=== PATIENT | female | born 1970 | race Caucasian/White ===

== ENCOUNTER → 2016-10-15 | Outpatient (CLI) | payer OTHER ==
[~2016-10-15] MED LIST: OXYC-57 PO; OXYC10TA31 PO; TRAM-10 PO; ultracet
== END | disposition home or self-care (01) ==
LOC: C.PAPS 08:18
PROVIDERS: ATTEND Obstetrics & Gynecology
DX: Z12.4 Encounter for screening for malignant neoplasm of cervix (principal); Z87.42 Personal history of other diseases of the female genital tract

== ENCOUNTER → 2017-08-31 | Outpatient (CLI) | payer OTHER ==
--- NOTE | 2017-09-01 14:39 | MAMMOGRAPHY REPORT ---
BILATERAL DIGITAL SCREENING MAMMOGRAM TOMOSYNTHESIS WITH CAD: 08/31/2017 CLINICAL HISTORY: Routine screening. TECHNIQUE: Breast tomosynthesis in addition to standard 2D mammography was performed. Current study was also evaluated with a Computer Aided Detection (CAD) system. COMPARISON: Comparison is made to exams dated: 08/07/2016 mammogram, 08/02/2015 mammogram, 4 mammogram, 01/26/2012 mammogram, and 01/22/2011 mammogram - [facility]. BREAST COMPOSITION: The tissue of both breasts is heterogeneously dense, which may obscure small mas ses. FINDINGS: The glandular pattern is similar to prior mammograms. There are stable benign-appearing mi crocalcifications in the left breast. No suspicious mass, architectural distortion or cluster of new , suspicious microcalcifications is seen. IMPRESSION: ACR BI-RADS CATEGORY 1: NEGATIVE There is no mammographic evidence of malignancy. A 1 year screening mammogram is recommended. The pa tient will receive written notification of the results. Approximately 10% of breast cancers are not detected with mammography. A negative mammographic report should not delay biopsy if a clinically suggestive mass is present. Sade Alves M.D. ay/:08/31/2017 16:20:28 [employer] Operator: Tee VALDEZ(R)(M), [facility] letter sent: Normal 1/2 BI-RADS Code: ACR BI-RADS Category 1: Negative
== END | disposition home or self-care (01) ==
LOC: C.MAMM 10:04
PROVIDERS: ATTEND Obstetrics & Gynecology
DX: Z12.31 Encounter for screening mammogram for malignant neoplasm of breast (principal)

== ENCOUNTER → 2017-10-05 | Outpatient (CLI) | payer OTHER ==
--- NOTE | 2017-10-05 15:39 | DIAGNOSTIC IMAGING REPORT ---
L SHOULDER MIN 2 VIEWS ROUTINE CLINICAL HISTORY: Left shoulder pain status post trauma COMPARISON: None. DISCUSSION: No fractures or dislocations the proximal humerus are visualized. There are multiple old left-sided rib fractures. There is a deformity the scapular glenoid which is likely old. IMPRESSION: 1. Old left-sided rib fractures 2. Scapular glenoid deformity likely old 3. No acute fractures or dislocations of the proximal humerus Electronically signed by: Bill Grayson M.D. 10/05/2017 3:37 PM Dictated Date/Time: 10/05/2017 3:34 PM
--- NOTE | 2017-10-05 15:42 | DIAGNOSTIC IMAGING REPORT ---
ANKLE MIN 3 VIEWS ROUTINE CLINICAL HISTORY: Left ankle pain COMPARISON: None. DISCUSSION: No acute fractures or dislocations are visualized. There is distal tibial spurring. There is a plantar calcaneal spur. There are corticated bony densities adjacent medial malleolus which are felt to be old. IMPRESSION: Chronic changes. No acute fractures. Electronically signed by: Bill Grayson M.D. 10/05/2017 3:41 PM Dictated Date/Time: 10/05/2017 3:40 PM
== END | disposition home or self-care (01) ==
LOC: C.RAD 14:36
PROVIDERS: ATTEND Family Medicine
DX: M25.512 Pain in left shoulder (principal); M79.9 Soft tissue disorder, unspecified; M25.572 Pain in left ankle and joints of left foot

== ENCOUNTER 2020-11-23 06:03 | Inpatient (IN) ==
[2020-11-23] MEDS ORDERED: KETOROLAC TROMETHAMINE 15 MG/ML VIAL IV STA (06:46)
[2020-11-23] MEDS ORDERED: diphenhydrAMINE 50 MG/ML VIAL IV STA (06:46)
[2020-11-23] MEDS ORDERED: SODIUM CHLORIDE 0.9% 1000ML 2,000 ML IV ONE (06:46)
[2020-11-23] MEDS ORDERED: PROCHLORPERAZINE 2 ML IV ONE (06:46)
[2020-11-23] MEDS ORDERED: ACETAMINOPHEN 1,000 MG/100 ML VIAL IV STA (06:46)
[2020-11-23] MEDS ORDERED: dexAMETHasone**PF** 10 MG/ML VIAL IV ONE (06:46)
[2020-11-23] MEDS ORDERED: SODIUM CHLORIDE 0.65% NA SOLN 45 ML (OCEAN) ONE (06:49)
[2020-11-23] MEDS ORDERED: guaiFENesin 600 MG TABCR PO STA (06:49)
--- NOTE | 2020-11-23 07:26 | Emergency Department Note ---
Impression & Plan Intractable nausea and vomiting, Sinus headache, Vertigo, Hypomagnesemia, Hypokalemia ED Provider Note NAME: RAJIV REYES AGE: 50 SEX: F ARRIVES VIA: Walk-In INFORMANT: Patient, ED PROVIDER(S): Nabil Hernandez MD CHIEF COMPLAINT: Headache, dizziness PLAN: Disposition: Admit MEDICAL DECISION MAKING: The patient is a pleasant 50-year-old woman with a past medical history of chronic frontoethmoidal and maxillary sinusitis who presents to the emergency department with progressive worsening of sinus pressure, congestion with develo pment of vertigo and frequent nausea and vomiting over the past several days. She was prescribed antibiotic and steroid by her doctor but was unable to pick it up. She was last on antibiotics approximately a month ago but does not recall which one is she is been on numerous antibiotics over the past 6 months. She denies diarrhea, chest pain, shortness of breath. On arrival the patient is uncomfortable but no acute distress, afebrile with heart rate in the 120s and vital signs otherwise stable. On exam the patient appears clinically dry. Neck is supple. She has bilateral middle ear effusions per exam without injection of TMs. Boggy nasal turbinates. Mild tenderness to frontal and maxillary sinuses bilaterally. She has no focal neurologic deficits. She does exhibit mild bilateral horizontal nystagmus that extinguishes. Otherwise there is no disconjugate gaze and eomi. pupils are equal and reactive to light bilaterally. WBC 12K, nonspecific. H/H and platelets wnl. Chemistry without acidosis. Potassium 2.5 and Magnesium 1.1 with repletion provided. Electrolytes unremarkable. LFTs without significant abnormality. Troponin negative/undetectable. Lipase is not elevated. Covid-19 PCR negative. Influenza and RSV negative. Upon re-evaluation the patient only reported marginal improved after IVF hydration, apap, dexamethasone, compazine, and diphenhydramine. Thus CT imaging performed and CT head and CTA head and neck was negative for acute process. Patient somewhat more improved after ativan, reglan, and pepcid however still uncomfortable. Given still symptomatic with electrolyte abnormalities, patient is agreeable with plan for admission. Given patient is afebrile with clear paranasal sinus on imaging will defer decision for ABX to admitting team. Case was discussed with Diana Ngo, with Dr. Francisco Javier Ortiz hospitalist who will evaluate the patient for admission. Triage Nursing notes reviewed and agree them. Additional history obtained from [facility] records. Prior medical records reviewed Vital Signs: reviewed and remarkable for tachycardia. Differential diagnosis: Migraine headache, meningitis, sinusitis, CO exposure, ICH, SAH, infection, tumor, headache, sinus thrombosis, arterial dissection, as well as other pathologies. ER treatment provided: See below. Diagnostics interpreted by me: ECG: Sinus tachycardia, 106 bpm, no ectopy, no overt ST elevation or depression, QTC 454, QRS 60. Cardiac Monitoring: An order for continuous cardiac monitoring was placed and demonstrated sinus tachycardia, 106 bpm, no ectopy Laboratory studies: See below Imaging studies: See below Consultation(s): Case was discussed with Diana Ngo PAC, with Dr. Francisco Javier Ortiz hospitalist who will evaluate the patient for admission. HPI: The patient is a pleasant 50-year-old woman with a past medical history of chronic frontoethmoidal and maxillary sinusitis who presents to the emergency department with progressive worsening of sinus pressure, congestion with development of vertigo and frequent nausea and vomiting over the past several days. She was prescribed antibiotic and steroid by her doctor but was unable to pick it up. She was last on antibiotics approximately a month ago but does not recall which one is she is been on numerous antibiotics over the past 6 months. She denies diarrhea, chest pain, shortness of breath. ROS: See above HPI for pertinent positives & negatives. A total of 10 systems reviewed and were otherwise negative. PAST MEDICAL HISTORY:See Below PAST SURGICAL HISTORY:See Below FAMILY HISTORY:See Below SOCIAL HISTORY:See Below HOME MEDICATIONS:See Below ALLERGIES:See Below VITALS:See Below PHYSICAL EXAMINATION: GENERAL: Awake, alert, uncomfortable, fatigued-appearing, in no distress HENT: Normocephalic, atraumatic. Bilateral middle ear effusions per exam without injection of TMs. Boggy nasal turbinates. Mild tenderness to frontal and maxillary sinuses bilaterally. Oropharynx with dry mucous membranes and otherwise unremarkable. EYES: Normal conjunctiva. Sclera non-icteric. Mild bilateral horizontal nystagmus that extinguishes. No disconjugate gaze. Eomi. Pupils are equal and reactive to light bilaterally. NECK: Supple. No nuchal rigidity. FROM. No JVD. RESPIRATORY: Clear to auscultation. CARDIAC: Regular rate, normal rhythm. Extremities warm and well perfused. Pulses equal. ABDOMEN: Soft, non-distended. No tenderness to palpation. No rebound or guarding. No masses. RECTAL: Deferred. MUSCULOSKELETAL: Chest examination reveals no tenderness. The back is symme trical on inspection without obvious abnormality. There is no CVA tenderness to palpation. No joint edema. LOWER EXTREMITIES: Calves are equal size bilaterally and non-tender. No edema. No discoloration. NEURO: Normal sensorium. No sensory or motor deficits noted. 5/5 strength and SILT x 4 extremities. Cerebellar function intact including [id number], alternating palms, [id number]. DTRs wnl. No clonus. SKIN: No rash or jaundice noted. ED COURSE: Critical Care: I have personally spent greater than 35 minutes of critical care time in the direct management of this patient. This includes bedside care, interpretation of diagnostic studies, and testing, discussion with consultants, patient, and family members, and other required patient management activities. This 35 minutes is in excess of all separately billable procedures. Nabil Hernandez MD Past Med/Surg History Medical History No pertinent past medical history Surgical History History of colonoscopy History of laparoscopic cholecystectomy History of sinus surgery History of tonsillectomy Family History Brother Ulcerative colitis Unknown Alcoholism Irritable bowel syndrome Grandmother Breast cancer maternal Denies family history of Ovarian cancer Crohn's disease Colorectal cancer Uterine cancer Social History Smoking Status: Never smoker Tobacco Type: Cigarettes Second Hand Exposure: No; Hx Alcohol Use: No Hx Substance Use: No Preferred Language: Norwegian Communication Ability: Effective Burrer Operator Required: No Beliefs That Will Affect Care: None and Jainism Current Living Situation: Significant Other Other Information That Helps Us Care for You: No Feels Safe at Home: Yes Safety Concerns: Feels Safe At This Time Assistive Devices: None Allergies Allergies Allergy/AdvReac Type Severity Reaction Status Date / Time No Known Allergies Allergy Unverified 03/15/20 13:45 Home Meds Home Medications Medication Instructions Recorded Confirmed acetaminophen [Tylenol Extra 1,000 mg PO Q6H PRN 11/23/20 11/23/20 Strength] etonogestrel [Nexplanon] 68 mg SUBDERMAL CONTINOUS 11/23/20 11/23/20 guaifenesin [Mucinex] 600 mg PO BID 11/23/20 11/23/20 ondansetron HCl [Zofran] 4 mg PO Q6H 11/23/20 11/23/20 pseudoephedrine HCl [Sudafed] 60 mg PO Q6H PRN 11/23/20 11/23/20 Results & Data (ED) Vital Signs Vital Signs - 24 hr 11/23/20 06:07 11/23/20 06:47 11/23/20 08:03 Temperature 36.3 C L Temperature Source Temporal Artery Scan Pulse Rate 122 H Pulse Rate [Apical] 104 H Pulse Rhythm [Apical] Pulse Strength [Apical] Respiratory Rate 20 18 Respiratory Effort / Characteristics Respiratory Depth Respiratory Pattern Blood Pressure 159/81 H Blood Pressure [Left Arm] 159/82 H Blood Pressure Mean 107 Blood Pressure Mean [Left Arm] 107 Blood Pressure Position [Left Arm] Pulse Oximetry 99 99 97 Oxygen Delivery Method Room Air Room Air Sepsis Recent Fever Within 48 Hours Yes Sepsis New/Unexplained Change in Mental Status No Sepsis Action Taken by Nursing No Action Required 11/23/20 10:00 11/23/20 11:14 Temperature Temperature Source Pulse Rate Pulse Rate [Apical] 97 H 103 H Pulse Rhythm [Apical] Regular Pulse Strength [Apical] Normal Respiratory Rate 18 20 Respiratory Effort / Characteristics Non-Labored Spontaneous Respiratory Depth Normal Respiratory Pattern Regular Blood Pressure Blood Pressure [Left Arm] 160/86 H 153/92 H Blood Pressure Mean Blood Pressure Mean [Left Arm] 110 112 Blood Pressure Position [Left Arm] Lying Pulse Oximetry 97 Oxygen Delivery Method Room Air Sepsis Recent Fever Within 48 Hours Sepsis New/Unexplained Change in Mental Status Sepsis Action Taken by Nursing Laboratory Data Attestation: I reviewed the patient's lab results. Result diagrams: 11/23/20 07:20 11/23/20 20:07 Lab Results 11/23/20 11/23/20 11/23/20 Range/Units 06:48 06:48 07:20 WBC 12.19 H (4.8-10.8) K/uL RBC 4.82 (4.2-5.4) M/uL Hgb 13.6 (12.0-16.0) g/dL POC Hgb (12.0-16.0) g/dl Hct 39.5 (37-47) % POC Hct (37-47) % MCV 82.0 (80-100) fL MCH 28.2 (25-34) pg MCHC 34.4 (32-36) g/dL RDW Std Deviation 42.1 (36.4-46.3) fL RDW Coeff of [place] 14.1 (11.5-14.5) % Plt Count 313 (130-400) K/uL MPV 9.7 (7.4-10.4) fL Immature Gran % (Auto) 0.2 % Neut % (Auto) 82.4 % Lymph % (Auto) 10.8 % [place] % (Auto) 6.3 % Eos % (Auto) 0.1 % Baso % (Auto) 0.2 % Neut # (Auto) 10.05 H (1.4-6.5) K/uL Lymph # (Auto) 1.32 (1.2-3.4) K/uL [place] # (Auto) 0.77 H (0.11-0.59) K/uL Eos # (Auto) 0.01 (0-0.5) K/uL Baso # (Auto) 0.02 (0-0.2) K/uL Immature Gran # (Auto) 0.02 (0.00-0.02) K/uL POC Sodium (135-144) mmol/L Sodium (136-145) mmol/L POC Potassium (3.3-5.0) mmol/L Potassium (3.5-5.1) mmol/L POC Chloride (101-112) mmol/L Chloride (98-107) mmol/L Carbon Dioxide (21-32) mmol/L POC Total CO2 (24-31) mmol/L Anion Gap (3-11) POC Anion Gap (16-25) mmol/L POC BUN (7-18) mg/dl BUN (7-18) mg/dl Creatinine (0.6-1.2) mg/dl POC Creatinine (0.6-1.3) mg/dl Est Cr Clr Drug Dosing ml/min Est GFR ( Amer) Est GFR (Non-Af Amer) BUN/Creatinine Ratio (10-20) Glucose (70-99) mg/dl POC Glucose (other) (70-99) mg/dl Calcium (8.5-10.1) mg/dl POC Ioniz Calcium [place] (1.12-1.32) mmol/l Phosphorus (2.5-4.9) mg/dl Magnesium (1.8-2.4) mg/dl Total Bilirubin (0.2-1) mg/dl Direct Bilirubin (0-0.2) mg/dl AST (15-37) U/L ALT (12-78) U/L Alkaline Phosphatase (45-117) U/L Total Creatine Kinase (26-192) U/L Troponin I (0-0.045) ng/ml Total Protein (6.4-8.2) gm/dl Albumin (3.4-5.0) gm/dl Globulin (2.5-4.0) gm/dl Albumin/Globulin Ratio (0.9-2) Lipase (73-393) U/L HCG, Qual COVID-19 Eval Order CovFluRsv at [facility] SARS-CoV-2 (PCR) NEGATIVE (Negative) Influenza Type A (PCR) Negative (Neg) Influenza Type B (PCR) Negative (Neg) RSV (RT-PCR) Negative (Neg) 11/23/20 11/23/20 11/23/20 Range/Units 07:20 07:20 07:25 WBC (4.8-10.8) K/uL RBC (4.2-5.4) M/uL Hgb (12.0-16.0) g/dL POC Hgb 14.6 (12.0-16.0) g/dl Hct (37-47) % POC Hct 43 (37-47) % MCV (80-100) fL MCH (25-34) pg MCHC (32-36) g/dL RDW Std Deviation (36.4-46.3) fL RDW Coeff of [place] (11.5-14.5) % Plt Count (130-400) K/uL MPV (7.4-10.4) fL Immature Gran % (Auto) % Neut % (Auto) % Lymph % (Auto) % [place] % (Auto) % Eos % (Auto) % Baso % (Auto) % Neut # (Auto) (1.4-6.5) K/uL Lymph # (Auto) (1.2-3.4) K/uL [place] # (Auto) (0.11-0.59) K/uL Eos # (Auto) (0-0.5) K/uL Baso # (Auto) (0-0.2) K/uL Immature Gran # (Auto) (0.00-0.02) K/uL POC Sodium 132 L (135-144) mmol/L Sodium 132 L (136-145) mmol/L POC Potassium 2.4 L* (3.3-5.0) mmol/L Potassium 2.5 L* (3.5-5.1) mmol/L POC Chloride 88 L (101-112) mmol/L Chloride 91 L (98-107) mmol/L Carbon Dioxide 29 (21-32) mmol/L POC Total CO2 33 H (24-31) mmol/L Anion Gap 13.0 H (3-11) POC Anion Gap 15.0 L (16-25) mmol/L POC BUN 8 (7-18) mg/dl BUN 9 (7-18) mg/dl Creatinine 0.87 (0.6-1.2) mg/dl POC Creatinine 0.7 (0.6-1.3) mg/dl Est Cr Clr Drug Dosing 104.6 ml/min Est GFR ( Amer) 90.7 Est GFR (Non-Af Amer) 78.2 BUN/Creatinine Ratio 10.5 (10-20) Glucose 121 H (70-99) mg/dl POC Glucose (other) 131 H (70-99) mg/dl Calcium 7.9 L (8.5-10.1) mg/dl POC Ioniz Calcium [place] 0.85 L (1.12-1.32) mmol/l Phosphorus 2.1 L (2.5-4.9) mg/dl Magnesium 1.1 L (1.8-2.4) mg/dl Total Bilirubin 0.9 (0.2-1) mg/dl Direct Bilirubin < 0.1 (0-0.2) mg/dl AST 38 H (15-37) U/L ALT 29 (12-78) U/L Alkaline Phosphatase 82 (45-117) U/L Total Creatine Kinase 289 H (26-192) U/L Troponin I < 0.015 (0-0.045) ng/ml Total Protein 7.9 (6.4-8.2) gm/dl Albumin 3.5 (3.4-5.0) gm/dl Globulin 4.4 H (2.5-4.0) gm/dl Albumin/Globulin Ratio 0.8 L (0.9-2) Lipase 132 (73-393) U/L HCG, Qual Cancelled COVID-19 Eval Order SARS-CoV-2 (PCR) (Negative) Influenza Type A (PCR) (Neg) Influenza Type B (PCR) (Neg) RSV (RT-PCR) (Neg) 11/23/20 Range/Units 07:57 WBC (4.8-10.8) K/uL RBC (4.2-5.4) M/uL Hgb (12.0-16.0) g/dL POC Hgb (12.0-16.0) g/dl Hct (37-47) % POC Hct (37-47) % MCV (80-100) fL MCH (25-34) pg MCHC (32-36) g/dL RDW Std Deviation (36.4-46.3) fL RDW Coeff of [place] (11.5-14.5) % Plt Count (130-400) K/uL MPV (7.4-10.4) fL Immature Gran % (Auto) % Neut % (Auto) % Lymph % (Auto) % [place] % (Auto) % Eos % (Auto) % Baso % (Auto) % Neut # (Auto) (1.4-6.5) K/uL Lymph # (Auto) (1.2-3.4) K/uL [place] # (Auto) (0.11-0.59) K/uL Eos # (Auto) (0-0.5) K/uL Baso # (Auto) (0-0.2) K/uL Immature Gran # (Auto) (0.00-0.02) K/uL POC Sodium (135-144) mmol/L Sodium (136-145) mmol/L POC Potassium (3.3-5.0) mmol/L Potassium (3.5-5.1) mmol/L POC Chloride (101-112) mmol/L Chloride (98-107) mmol/L Carbon Dioxide (21-32) mmol/L POC Total CO2 (24-31) mmol/L Anion Gap (3-11) POC Anion Gap (16-25) mmol/L POC BUN (7-18) mg/dl BUN (7-18) mg/dl Creatinine (0.6-1.2) mg/dl POC Creatinine (0.6-1.3) mg/dl Est Cr Clr Drug Dosing ml/min Est GFR ( Amer) Est GFR (Non-Af Amer) BUN/Creatinine Ratio (10-20) Glucose (70-99) mg/dl POC Glucose (other) (70-99) mg/dl Calcium (8.5-10.1) mg/dl POC Ioniz Calcium Pierce (1.12-1.32) mmol/l Phosphorus (2.5-4.9) mg/dl Magnesium (1.8-2.4) mg/dl Total Bilirubin (0.2-1) mg/dl Direct Bilirubin (0-0.2) mg/dl AST (15-37) U/L ALT (12-78) U/L Alkaline Phosphatase (45-117) U/L Total Creatine Kinase (26-192) U/L Troponin I (0-0.045) ng/ml Total Protein (6.4-8.2) gm/dl Albumin (3.4-5.0) gm/dl Globulin (2.5-4.0) gm/dl Albumin/Globulin Ratio (0.9-2) Lipase (73-393) U/L HCG, Qual Negative COVID-19 Eval Order SARS-CoV-2 (PCR) (Negative) Influenza Type A (PCR) (Neg) Influenza Type B (PCR) (Neg) RSV (RT-PCR) (Neg) Administered Medications Acetaminophen (Acetaminophen 500 Mg Tab) 1,000 mg PO Q6H PRN PRN Reason: Pain Stop: 12/23/20 13:35 Last Admin: 11/23/20 20:26 Dose: 1,000 mg Documented by: [id number] Al Hydrox/Mg Hydrox/Simethicone (Aluminum/Magnesium Susp 30 Ml Udc) 15 ml PO Q4H PRN PRN Reason: Dyspepsia Stop: 12/23/20 11:57 Last Admin: 11/23/20 17:02 Dose: 15 ml Documented by: [id number] Amoxicillin/Clavulanate Potassium (Amoxicillin/Clavulanate 875 Mg Tab) 1 tab PO BIDM DENNISE Stop: 12/03/20 16:59 Last Admin: 11/23/20 17:03 Dose: 1 tab Documented by: [id number] Diphenhydramine HCl (Diphenhydramine 50 Mg/Ml Vial) 12.5 mg IV Q6H PRN PRN Reason: itchy Stop: 12/23/20 16:59 Last Admin: 11/23/20 17:03 Dose: 12.5 mg Documented by: [id number] Guaifenesin (Guaifenesin 600 Mg Tabcr) 600 mg PO BID DENNISE Stop: 12/23/20 20:59 Last Admin: 11/23/20 20:26 Dose: 600 mg Documented by: [id number] Ketorolac Tromethamine (Ketorolac Tromethamine 15 Mg/Ml Vial) 15 mg IV Q6H PRN PRN Reason: Pain Stop: 11/28/20 15:01 Last Admin: 11/23/20 21:49 Dose: 15 mg Documented by: [id number] Admin: 11/23/20 15:40 Dose: 15 mg Documented by: [id number] Ondansetron HCl (Ondansetron Inj 2 Mg/Ml 2 Ml Vial) 4 mg IV Q6H PRN PRN Reason: Nausea Stop: 12/23/20 11:57 Last Admin: 11/23/20 19:43 Dose: 4 mg Documented by: [id number] Discontinued Medications Acetaminophen (Acetaminophen 325 Mg Tab) Confirm Administered Dose 650 mg .ROUTE .STK-MED ONE Stop: 11/23/20 13:15 Last Admin: 11/23/20 13:18 Dose: 650 mg Documented by: [id number] Dexamethasone Sodium Phosphate (DexamethasonePf 10 Mg/Ml Vial) 10 mg IV NOW ONE Stop: 11/23/20 06:47 Last Admin: 11/23/20 07:37 Dose: 10 mg Documented by: [id number] Diphenhydramine HCl (Diphenhydramine 50 Mg/Ml Vial) 25 mg IV NOW STA Stop: 11/23/20 06:47 Last Admin: 11/23/20 07:37 Dose: 25 mg Documented by: [id number] Guaifenesin (Guaifenesin 600 Mg Tabcr) 600 mg PO NOW STA Stop: 11/23/20 06:50 Last Admin: 11/23/20 07:32 Dose: Not Given Documented by: [id number] Sodium Chloride (Nss 1000ml) 2,000 mls @ 999 mls/hr IV .Q2H1M ONE Stop: 11/23/20 08:46 Last Infusion: 11/23/20 09:40 Dose: 0 mls/hr Documented by: [id number] Admin: 11/23/20 07:37 Dose: 999 mls/hr Documented by: [id number] Acetaminophen (Ofirmev) 1,000 mg in 100 mls @ 400 mls/hr IV NOW STA Stop: 11/23/20 07:00 Last Infusion: 11/23/20 08:02 Dose: 0 mls/hr Documented by: [id number] Admin: 11/23/20 07:37 Dose: 400 mls/hr Documented by: [id number] Prochlorperazine (Compazine) 2 mls @ 1 mls/min IV ONE ONE Stop: 11/23/20 06:47 Last Admin: 11/23/20 07:37 Dose: 1 mls/min Documented by: [id number] Magnesium Sulfate/Dextrose (Magnesium Sulfate / D5w) 1 gm in 100 mls @ 100 mls/hr IV Q1H DENNISE Stop: 11/23/20 10:37 Last Infusion: 11/23/20 11:41 Dose: 0 mls/hr Documented by: [id number] Admin: 11/23/20 10:22 Dose: 100 mls/hr Documented by: [id number] Infusion: 11/23/20 09:47 Dose: 0 mls/hr Documented by: [id number] Admin: 11/23/20 08:46 Dose: 100 mls/hr Documented by: [id number] Potassium Chloride (K [place] / Wtr) 10 meq in 100 mls @ 100 mls/hr IV Q1H DENNISE Stop: 11/23/20 10:44 Last Infusion: 11/23/20 13:10 Dose: 0 mls/hr Documented by: [id number] Admin: 11/23/20 11:40 Dose: 100 mls/hr Documented by: [id number] Infusion: 11/23/20 09:47 Dose: 0 mls/hr Documented by: [id number] Admin: 11/23/20 08:46 Dose: 100 mls/hr Documented by: [id number] Lorazepam (Ativan) 0.5 mg in 1 mls @ 1 mls/min IV NOW STA Stop: 11/23/20 09:07 Last Admin: 11/23/20 09:33 Dose: 1 mls/min Documented by: [id number] Famotidine (Pepcid 20mg Iv Push) 20 mg in 5 mls @ 2.5 mls/min IV NOW STA Stop: 11/23/20 09:22 Last Admin: 11/23/20 09:32 Dose: 2.5 mls/min Documented by: [id number] Potassium Chloride/Sodium Chloride (Normal Saline W/20 Meq Kcl) 20 meq in 1,000 mls @ 100 mls/hr IV .Q10H DENNISE Stop: 11/23/20 23:44 Last Admin: 11/23/20 14:36 Dose: 100 mls/hr Documented by: [id number] Ioversol (Ioversol 350 500ml) 117 ml IV ONCE ONE Stop: 11/23/20 09:44 Last Admin: 11/23/20 09:43 Dose: 117 ml Documented by: [id number] Ioversol (Ioversol 350 500ml) 117 ml IV ONCE ONE Stop: 11/23/20 09:45 Last Admin: 11/23/20 09:44 Dose: 117 ml Documented by: [id number] Ketorolac Tromethamine (Ketorolac Tromethamine 15 Mg/Ml Vial) 15 mg IV NOW STA Stop: 11/23/20 06:47 Last Admin: 11/23/20 07:37 Dose: 15 mg Documented by: [id number] Metoclopramide HCl (Metoclopramide Hcl Inj 5 Mg/Ml 2 Ml Vial) 5 mg IV ONE ONE Stop: 11/23/20 09:07 Last Admin: 11/23/20 09:32 Dose: 5 mg Documented by: [id number] Sodium Chloride (Sodium Chloride 0.65% Na Soln 45 Ml ([place])) 2 sprays NA NOW ONE Stop: 11/23/20 06:50 Last Admin: 11/23/20 07:42 Dose: 2 sprays Documented by: [id number] Imaging Data Radiologist's Impression: Chest X-Ray 11/23/20 06:46 XR chest 1V portable HISTORY: 50 years-old Female Chest Pain . Acute atypical chest pain COMPARISON: Chest radiograph 02/01/2008 TECHNIQUE: Portable AP view of the chest FINDINGS: Cardiomediastinal and hilar silhouettes are within normal limits. No pneumothorax, pleural effusion, airspace consolidation or overt pulmonary edema. Degenerative changes of the shoulders and spine. Healed chronic left-sided rib fractures. IMPRESSION: No acute process. ACT 112: Negative or not required by law. The above report was generated using voice recognition software. It may contain grammatical, syntax or spelling errors. Electronically signed by: Vincent Morales M.D. 11/23/2020 8:[address] 11/23/20 09:[address] DOSE: HISTORY: chronic sinusitis/Headache, vertigo/n/v. TECHNIQUE: Multiaxial CT images of the head were performed without the use of intravenous contrast. Automated exposure control was utilized for this study. A dose lowering technique was utilized adhering to the principles of ALARA. Comparison: None. Findings: The paranasal sinuses and mastoid air cells are clear. The calvarium and skull base are intact. The ventricles and sulci are within normal limits. There is no mass, hematoma, midline shift, or acute infarct. A few small scalp nodules. These favor sebaceous cysts. Impression: No acute intracranial abnormality. ACT 112: Negative or not required by law. Electronically signed by: Leonid Trevino M.D. 11/23/2020 9:56 AM Head CTA 11/23/20 09:06 HEAD & NECK CTA HISTORY: chronic sinusitis/Headache, vertigo/n/v. TECHNIQUE: Multiaxial CT images of the head were performed following the intravenous administration of contrast to evaluate the major cerebral vessels. Multiaxial CT images of the neck were also performed following the intravenous administration of contrast to evaluate the major cervical vessels. Maximum intensity projection images were also obtained. A dose lowering technique was utilized adhering to the principles of ALARA. COMPARISON: None. FINDINGS: There is no mass, hematoma, midline shift, or acute infarct. Visualized intracranial internal carotid arteries, distal vertebral arteries, and basilar artery are widely patent. There is no significant stenosis, occlusion, or aneurysm seen within the bilateral ACAs, MCAs, or certified substance abuse counselor. The major dural venous sinuses are patent. The aortic arch and proximal great vessels are widely patent. There is no significant stenosis, occlusion, or dissection identified within the bilateral common carotid, internal carotid, or vertebral arteries. There are 2 subcentimeter right thyroid nodules measuring up to 7 mm. These do not meet CT criteria for follow-up. IMPRESSION: 1. No significant stenosis, occlusion, or aneurysm within the [place]. 2. No significant stenosis, occlusion, or dissection identified within the carotid or vertebral arteries. ACT 112: Negative or not required by law. Electronically signed by: Leonid Trevino M.D. 11/23/2020 10:11 AM Neck CTA 11/23/20 09:06 HEAD & NECK CTA HISTORY: chronic sinusitis/Headache, vertigo/n/v. TECHNIQUE: Multiaxial CT images of the head were performed following the intravenous administration of contrast to evaluate the major cerebral vessels. Multiaxial CT images of the neck were also performed following the intravenous administration of contrast to evaluate the major cervical vessels. Maximum intensity projection images were also obtained. A dose lowering technique was utilized adhering to the principles of ALARA. COMPARISON: None. FINDINGS: There is no mass, hematoma, midline shift, or acute infarct. Visualized intracranial internal carotid arteries, distal vertebral arteries, and basilar artery are widely patent. There is no significant stenosis, occlusion, or aneurysm seen within the bilateral ACAs, MCAs, or certified substance abuse counselor. The major dural venous sinuses are patent. The aortic arch and proximal great vessels are widely patent. There is no significant stenosis, occlusion, or dissection identified within the bilateral common carotid, internal carotid, or vertebral arteries. There are 2 s ubcentimeter right thyroid nodules measuring up to 7 mm. These do not meet CT criteria for follow-up. IMPRESSION: 1. No significant stenosis, occlusion, or aneurysm within the [place]. 2. No significant stenosis, occlusion, or dissection identified within the carotid or vertebral arteries. ACT 112: Negative or not required by law. Electronically signed by: Leonid Trevino M.D. 11/23/2020 10:11 AM Discharge Plan Visit Data Chief Complaint: Ear Pain/Problem Stated Complaint: ear infection,vomiting,dizzy ED Provider: Nabil Hernandez Discharge Problem: Intractable nausea and vomiting, Sinus headache, Vertigo, Hypomagnesemia, Hypokalemia Patient Disposition: Admitted As Inpatient Discharge Instructions Interventions: ED Discharge Assessment Last Done: 11/23/20 13:23
[2020-11-23 07:32] LABS: Basophils # (auto) 0.02 K/uL (0-0.2); Basophils % (auto) 0.2 %; Eosinophils # (auto) 0.01 K/uL (0-0.5); Eosinophils % (auto) 0.1 %; Hematocrit (blood only) 39.5 % (37-47); Hemoglobin 13.6 g/dL (12.0-16.0); Immature Granulocytes # (auto) 0.02 K/uL (0.00-0.02); Immature Granulocytes % (auto) 0.2 %; Lymphocytes # (auto) 1.32 K/uL (1.2-3.4); Lymphocytes % (auto) 10.8 %; Mean Corpuscular Hemoglobin 28.2 pg (25-34); Mean Corpuscular Hgb Conc 34.4 g/dL (32-36); Mean Platelet Volume 9.7 fL (7.4-10.4); Monocytes # (auto) 0.77 K/uL (0.11-0.59); Monocytes % (auto) 6.3 %; Neutrophils # (auto) 10.05 K/uL (1.4-6.5); Neutrophils % (auto) 82.4 %; Platelet Count 313 K/uL (130-400); RDW Coefficient of Variation 14.1 % (11.5-14.5); RDW Standard Deviation 42.1 fL (36.4-46.3); Red Blood Count 4.82 M/uL (4.2-5.4); White Blood Count 12.19 K/uL (4.8-10.8)
[2020-11-23 07:57] LABS: Magnesium 1.1 mg/dl (1.8-2.4)
[2020-11-23 07:58] LABS: Alanine Aminotransferase 29 U/L (12-78); Albumin Globulin Ratio 0.8 (0.9-2); Albumin Level 3.5 gm/dl (3.4-5.0); Alkaline Phosphatase 82 U/L (45-117); Aspartate Aminotransferase 38 U/L (15-37); BUN Creatinine Ratio 10.5 (10-20); Bilirubin Direct < 0.1 mg/dl (0-0.2); Bilirubin,Total 0.9 mg/dl (0.2-1); Blood Urea Nitrogen 9 mg/dl (7-18); Calcium 7.9 mg/dl (8.5-10.1); Carbon Dioxide 29 mmol/L (21-32); Chloride 91 mmol/L (98-107); Creatine Kinase 289 U/L (26-192); Creatinine Clr Calc Pharmacy 104.6 ml/min; Est GFR (African American) 90.7; Est GFR (Non-African American) 78.2; Globulin 4.4 gm/dl (2.5-4.0); Glucose 121 mg/dl (70-99); Lipase 132 U/L (73-393); Phosphorus 2.1 mg/dl (2.5-4.9); Potassium 2.5 mmol/L (3.5-5.1); Sodium 132 mmol/L (136-145); Total Protein 7.9 gm/dl (6.4-8.2); Troponin I < 0.015 ng/ml (0-0.045)
--- NOTE | 2020-11-23 08:09 | XRay Report ---
XR chest 1V portable HISTORY: 50 years-old Female Chest Pain . Acute atypical chest pain COMPARISON: Chest radiograph 02/01/2008 TECHNIQUE: Portable AP view of the chest FINDINGS: Cardiomediastinal and hilar silhouettes are within normal limits. No pneumothorax, pleural effusion, airspace consolidation or overt pulmonary edema. Degenerative changes of the shoulders and spine. Hea led chronic left-sided rib fractures. IMPRESSION: No acute process. ACT 112: Negative or not required by law. The above report was generated using voice recognition software. It may contain grammatical, syntax o r spelling errors. Electronically signed by: Vincent Morales M.D. 11/23/2020 8:08 AM
[2020-11-23 08:20] LABS: Influenza A virus by PCR Negative (Neg); Influenza B virus by PCR Negative (Neg); RSV by PCR Negative (Neg); SARS CoV2 RNA(COVID-19) InHosp NEGATIVE (Negative)
[2020-11-23] MEDS: MAGNESIUM SULFATE / D5W 1 GM/100 ML BAG IV SCH ×2 (08:46→10:22)
[2020-11-23] MEDS: POTASSIUM CHLORIDE / WTR 10 MEQ/100 ML PLCT IV SCH ×2 (08:46→11:40)
[2020-11-23 08:57] LABS: Pregnancy Test, Serum Negative (Negative)
[2020-11-23] MEDS ORDERED: METOCLOPRAMIDE HCL INJ 5 MG/ML 2 ML VIAL IV ONE (09:06)
[2020-11-23] MEDS ORDERED: LORazepam 0.5 MG/1 ML VIAL IV STA (09:06)
[2020-11-23] MEDS ORDERED: FAMOTIDINE 20MG IV PUSH 20 MG/5 ML SYR IV STA (09:21)
[2020-11-23] MEDS ORDERED: OPTIRAY 350 500ml IV ONE ×2 (09:43→09:44)
--- NOTE | 2020-11-23 09:58 | CT Scan Report ---
HEAD CT NONCONTRAST CT DOSE: HISTORY: chronic sinusitis/Headache, vertigo/n/v. TECHNIQUE: Multiaxial CT images of the head were performed without the use of intravenous contrast. A utomated exposure control was utilized for this study. A dose lowering technique was utilized adheri ng to the principles of ALARA. Comparison: None. Findings: The paranasal sinuses and mastoid air cells are clear. The calvarium and skull base are int act. The ventricles and sulci are within normal limits. There is no mass, hematoma, midline shift, or acute infarct. A few small scalp nodules. These favor sebaceous cysts. Impression: No acute intracranial abnormality. ACT 112: Negative or not required by law. Electronically signed by: Leonid Trevino M.D. 11/23/2020 9:56 AM
--- NOTE | 2020-11-23 10:13 | CT Scan Report ---
HEAD & NECK CTA HISTORY: chronic sinusitis/Headache, vertigo/n/v. TECHNIQUE: Multiaxial CT images of the head were performed following the intravenous administration o f contrast to evaluate the major cerebral vessels. Multiaxial CT images of the neck were also perform ed following the intravenous administration of contrast to evaluate the major cervical vessels. Maxim um intensity projection images were also obtained. A dose lowering technique was utilized adhering to the principles of ALARA. COMPARISON: None. FINDINGS: There is no mass, hematoma, midline shift, or acute infarct. Visualized intracranial internal carotid arteries, distal vertebral arteries, and basilar artery are widely patent. There is no significant s tenosis, occlusion, or aneurysm seen within the bilateral ACAs, MCAs, or medical affairs director. The major dural venous sinuses are patent. The aortic arch and proximal great vessels are widely patent. There is no significant stenosis, occ lusion, or dissection identified within the bilateral common carotid, internal carotid, or vertebral arteries. There are 2 subcentimeter right thyroid nodules measuring up to 7 mm. These do not meet CT criteria for follow-up. IMPRESSION: 1. No significant stenosis, occlusion, or aneurysm within the [place]. 2. No significant stenosis, occlusion, or dissection identified within the carotid or vertebral arter ies. ACT 112: Negative or not required by law. Electronically signed by: Leonid Trevino M.D. 11/23/2020 10:11 AM
--- NOTE | 2020-11-23 10:13 | CT Scan Report ---
HEAD & NECK CTA HISTORY: chronic sinusitis/Headache, vertigo/n/v. TECHNIQUE: Multiaxial CT images of the head were performed following the intravenous administration o f contrast to evaluate the major cerebral vessels. Multiaxial CT images of the neck were also perform ed following the intravenous administration of contrast to evaluate the major cervical vessels. Maxim um intensity projection images were also obtained. A dose lowering technique was utilized adhering to the principles of ALARA. COMPARISON: None. FINDINGS: There is no mass, hematoma, midline shift, or acute infarct. Visualized intracranial internal carotid arteries, distal vertebral arteries, and basilar artery are widely patent. There is no significant s tenosis, occlusion, or aneurysm seen within the bilateral ACAs, MCAs, or wire preparation worker. The major dural venous sinuses are patent. The aortic arch and proximal great vessels are widely patent. There is no significant stenosis, occ lusion, or dissection identified within the bilateral common carotid, internal carotid, or vertebral arteries. There are 2 subcentimeter right thyroid nodules measuring up to 7 mm. These do not meet CT criteria for follow-up. IMPRESSION: 1. No significant stenosis, occlusion, or aneurysm within the [place]. 2. No significant stenosis, occlusion, or dissection identified within the carotid or vertebral arter ies. ACT 112: Negative or not required by law. Electronically signed by: Leonid Trevino M.D. 11/23/2020 10:11 AM
[2020-11-23] MEDS ORDERED: POLYETHYLENE (MIRALAX) 17 GM PACK PO PRN (11:58)
[2020-11-23] MEDS ORDERED: ACETAMINOPHEN 325 MG TAB PO PRN (11:58)
[2020-11-23] MEDS ORDERED: MAGNESIUM HYDROXIDE SUSP 30 ML UDC PO PRN (11:58)
--- NOTE | 2020-11-23 12:12 | History & Physical Report ---
Date of Service November 23, 2020 Assessment & Plan (1) Sinus pressure: (2) Otitis media: Patient started on p.o. Augmentin CT head shows no evidence of any sinusitis (3) Electrolyte abnormality: Acute Hyponatremia , hypokalemia , low mg and phos noted in ER lab possible due to poor PO intake , intractable nausea /vomiting and diarrhea IV replacement given in ER ordered for IV fluid NSS +20 k @ 100 ml/hr anti emetics PRN repeat Lab in afternoon and AM monitor in Tele Disposition: Plan to discharge home tomorrow with p.o. antibiotic if patient remains clinically stable History of Present Illness Chief Complaint: Headache, earache Primary Care Provider: Kerry Marquez DO This is a 50-year-old female with history of chronic sinusitis, present to ER with complaint of intractable nausea vomiting for past 2 to 3 days, Had ongoing sinus pressure, ear ache mostly on the right, With posterior nasal drainage Has been afebrile, No cough no shortness of breath Allergies Allergy/AdvReac Type Severity Reaction Status Date / Time No Known Allergies Allergy Unverified 03/15/20 13:45 Home Medications Medication Instructions Recorded Confirmed Type acetaminophen [Tylenol Extra 1,000 mg PO Q6H PRN 11/23/20 11/23/20 History Strength] etonogestrel [Nexplanon] 68 mg SUBDERMAL CONTINOUS 11/23/20 11/23/20 History guaifenesin [Mucinex] 600 mg PO BID 11/23/20 11/23/20 History ondansetron HCl [Zofran] 4 mg PO Q6H 11/23/20 11/23/20 History pseudoephedrine HCl [Sudafed] 60 mg PO Q6H PRN 11/23/20 11/23/20 History Past Med/Surg History Medical History (Updated 11/23/20 @ 12:09 by Carissa Mcintyre MD) No pertinent past medical history Surgical History History of colonoscopy History of laparoscopic cholecystectomy History of sinus surgery History of tonsillectomy Family History Brother Ulcerative colitis Unknown Alcoholism Irritable bowel syndrome Grandmother Breast cancer maternal Denies family history of Ovarian cancer Crohn's disease Colorectal cancer Uterine cancer Social History Smoking Status: Never smoker Tobacco Type: Cigarettes Second Hand Exposure: No; Hx Alcohol Use: No Hx Substance Use: No Preferred Language: Panamanian Communication Ability: Effective Wildlife 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 Required: No Beliefs That Will Affect Care: None and Bahai Current Living Situation: Significant Other Other Information That Helps Us Care for You: No Feels Safe at Home: Yes Safety Concerns: Feels Safe At This Time Assistive Devices: None Review of Systems Review of Systems: All systems reviewed & are unremarkable except as noted in Subjective Physical Exam Physical Exam: Physical exam: General: No acute distress, alert awake oriented x3 HEENT: PERRLA, EOMI, Heart: Regular S1-S2, no carotid bruit, no JVD, no lower extremity edema Lungs: Clear to auscultate, no wheeze or rales Abdomen: Soft nontender, no organomegaly Extremity: No cyanosis, no deformity, normal strength 5 out of 5 with upper and lower Neuro: No focal neurological deficit normal speech, normal visual field, Motor strength : normal both upper and lower extremity, sensation intact Psych: Alert awake oriented x3, normal affect Results & Data Results & Data ([facility]) Vital Signs (Past 12 Hours) Vital Signs Temp Pulse Pulse Resp BP BP Pulse Ox 11/23/20 11:14 103 H 20 153/92 H 97 11/23/20 10:00 97 H 18 160/86 H 11/23/20 08:03 104 H 18 159/82 H 97 11/23/20 06:47 99 11/23/20 06:07 36.3 C L 122 H 20 159/81 H 99 Code Status & VTE Plan VTE Prophylaxis Plan VTE Prophylaxis will be ordered: Yes
[2020-11-23] MEDS ORDERED: ACETAMINOPHEN 325 MG TAB ONE (13:14)
[2020-11-23] MEDS ORDERED: NON-FORMULARY MEDICATION (Etonogestrel [Nexplanon] 68 mg Implant) SUBD SCH (13:32)
[2020-11-23 13:37] LABS: iSTAT Creatinine 0.7 mg/dl (0.6-1.3); iSTAT Hemoglobin 14.6 g/dl (12.0-16.0); iSTAT Ionized Calcium 0.85 mmol/l (1.12-1.32); iSTAT Potassium 2.4 mmol/L (3.3-5.0)
[2020-11-23] MEDS ORDERED: ONDANSETRON 4 MG OD TAB PO PRN (13:42)
[2020-11-23] MEDS ORDERED: NSS + 20MEQ KCL 20 MEQ/1,000 ML BAG IV SCH (13:45)
[2020-11-23] MEDS: KETOROLAC TROMETHAMINE 15 MG/ML VIAL IV PRN ×2 (15:40→21:49)
[2020-11-23] MEDS: ALUMINUM/MAGNESIUM SUSP 30 ML UDC PO PRN (17:02)
[2020-11-23] MEDS: diphenhydrAMINE 50 MG/ML VIAL IV PRN (17:03)
[2020-11-23] MEDS: AMOXICILLIN/CLAVULANATE 875 MG TAB PO SCH (17:03)
[2020-11-23] MEDS: ONDANSETRON INJ 2 MG/ML 2 ML VIAL IV PRN (19:43)
[2020-11-23] MEDS: guaiFENesin 600 MG TABCR PO SCH (20:26)
[2020-11-23] MEDS: ACETAMINOPHEN 500 MG TAB PO PRN (20:26)
[2020-11-23 21:15] LABS: BUN Creatinine Ratio 8.6 (10-20); Creatinine Clr Calc Pharmacy 69.6 ml/min; Est GFR (African American) 55.3; Est GFR (Non-African American) 47.7; Magnesium 2.1 mg/dl (1.8-2.4); Potassium 3.6 mmol/L (3.5-5.1)
[2020-11-24] MEDS: ALUMINUM/MAGNESIUM SUSP 30 ML UDC PO PRN ×3 (00:58→10:49)
[2020-11-24] MEDS: diphenhydrAMINE 50 MG/ML VIAL IV PRN ×3 (00:59→17:09)
[2020-11-24] MEDS: ONDANSETRON INJ 2 MG/ML 2 ML VIAL IV PRN (04:53)
[2020-11-24] MEDS: KETOROLAC TROMETHAMINE 15 MG/ML VIAL IV PRN ×3 (05:00→21:16)
--- NOTE | 2020-11-24 06:16 | Electrocardiogram Report ---
Test Reason : Blood Pressure : / mmHG Vent. Rate : 106 BPM Atrial Rate : 106 BPM P-R Int : 176 ms QRS Dur : 060 ms QT Int : 342 ms P-R-T Axes : 065 003 023 degrees QTc Int : 454 ms Poor data quality, interpretation may be adversely affected Sinus tachycardia Septal infarct , age undetermined Abnormal ECG When compared with ECG of 14-MAR-2020 08:25, Septal infarct is now Present Confirmed by Milo James ([id number]) on 11/24/2020 6:16:10 AM Referred By: REFERRED SELF Confirmed By:Milo James
[2020-11-24] MEDS: AMOXICILLIN/CLAVULANATE 875 MG TAB PO SCH (08:15)
[2020-11-24] MEDS: ACETAMINOPHEN 500 MG TAB PO PRN (08:15)
[2020-11-24] MEDS: guaiFENesin 600 MG TABCR PO SCH ×2 (08:15→21:16)
[2020-11-24 09:40] LABS: Hematocrit (blood only) 38.6 % (37-47); Immature Granulocytes # (auto) 0.02 K/uL (0.00-0.02); Immature Granulocytes % (auto) 0.2 %; Lymphocytes # (auto) 1.67 K/uL (1.2-3.4); Lymphocytes % (auto) 18.8 %; Mean Corpuscular Hemoglobin 28.3 pg (25-34); Mean Corpuscular Hgb Conc 33.7 g/dL (32-36); Mean Corpuscular Volume 84.1 fL (80-100); Mean Platelet Volume 10.4 fL (7.4-10.4); Monocytes # (auto) 0.75 K/uL (0.11-0.59); Monocytes % (auto) 8.5 %; Neutrophils # (auto) 6.43 K/uL (1.4-6.5); Neutrophils % (auto) 72.5 %; Platelet Count 254 K/uL (130-400); RDW Coefficient of Variation 14.4 % (11.5-14.5); RDW Standard Deviation 44.1 fL (36.4-46.3); Red Blood Count 4.59 M/uL (4.2-5.4); White Blood Count 8.87 K/uL (4.8-10.8)
[2020-11-24 10:04] LABS: Albumin Level 3.1 gm/dl (3.4-5.0); BUN Creatinine Ratio 9.7 (10-20); Calcium 8.5 mg/dl (8.5-10.1); Creatinine Clr Calc Pharmacy 84.5 ml/min; Est GFR (African American) 69.8; Est GFR (Non-African American) 60.2
[2020-11-24 10:21] LABS: Bilirubin,Total 0.6 mg/dl (0.2-1); Total Protein 7.9 gm/dl (6.4-8.2)
[2020-11-24 10:22] LABS: Phosphorus 1.4 mg/dl (2.5-4.9)
[2020-11-24] MEDS ORDERED: POTASSIUM PHOS 3 MMOL/1 ML INFUSION IV STA (10:25)
[2020-11-24] MEDS ORDERED: POTASSIUM PHOSPHATE 9 MMOL in SODIUM CHLORIDE 0.9% 250 ML IV ONE (10:45)
[2020-11-24] MEDS: SODIUM CHLORIDE 0.9% 1000ML 1,000 ML IV SCH (10:50)
[2020-11-24 11:01] LABS: Aspartate Aminotransferase 21 U/L (15-37); Bilirubin Direct < 0.1 mg/dl (0-0.2); Magnesium 2.2 mg/dl (1.8-2.4)
--- NOTE | 2020-11-24 12:38 | Hospitalist Progress Note ---
Date of Service November 24, 2020 Assessment & Plan (1) Sinus pressure: (2) Otitis media: Patient reports pain and pressure more on the right ear than left Otoscopic exam of right right-sided markedly erythematous, bulging tympanic membrane with air-fluid level, Left ear, minimum erythema, no air-fluid levels Patient was ordered on p.o. Augmentin, will change to IV Unasyn, as patient reports no improvement of pain and discomfort from otitis media. No drainage in the ear noted Complains of feeling of pressure, dizzy spells lightheadedness on turning head or changing position, Possible secondary to otitis media, Ordered as needed meclizine which has not provided much benefit, Will do trial of as needed Valium (3) Electrolyte abnormality: Resolved, normal potassium magnesium level, No nausea vomiting or diarrhea since admission patient's appetite been normal, tolerating all of meals Low Phos noted, replaced, will check labs in a.m. Disposition: Tentative discharge home when medically stable Admission and Anticipated Discharge Date Admission Date: November 23, 2020 Subjective Follow-up visit for otitis media/headache/earache Patient reports she continues to have pressure on her right ear with pain radiation to back of head Feels dizzy when turning her head, or standing up Has been afebrile, no nausea vomiting tolerating diet No complaint of chest pain shortness of breath no fever or cough Review of Systems Review of Systems: All systems reviewed & are unremarkable except as noted in Subjective Ear, Nose, Mouth, Throat: + ear pain Physical Exam Physical Exam: Physical exam: General: No acute distress, alert awake oriented x3 HEENT: Anicteric sclera, Otoscopic exam of right ear: Tympanic membrane appears to be bulged, injected, with air-fluid level Exam of left ear: Minimum injection, no bulging or air-fluid level noted Heart: Regular S1-S2, no carotid bruit, no JVD, no lower extremity edema Lungs: Clear to auscultate, no wheeze or rales Abdomen: Soft nontender, no organomegaly Extremity: No cyanosis, no deformity, normal strength 5 out of 5 with upper and lower Neuro: No focal neurological deficit normal speech, normal visual field, Motor strength : normal both upper and lower extremity, sensation intact Psych: Alert awake oriented x3, normal affect Results & Data Results & Data ([facility]) Vital Signs (Past 12 Hours) Vital Signs Temp Pulse Pulse Resp BP BP Pulse Ox 11/24/20 12:23 36.9 C 72 16 172/84 H 99 11/24/20 09:57 61 11/24/20 07:35 37.0 C 70 16 166/90 H 97 11/24/20 05:44 67 11/24/20 03:50 36.8 C 75 18 176/85 H 97
[2020-11-24] MEDS: diazePAM 2 MG TABLET PO PRN ×2 (12:48→21:17)
[2020-11-24] MEDS: AMPICILLIN/SULBACTAM SOD 3,000 MG in 0.9 % SODIUM CHLORIDE 100 ML IV SCH ×2 (12:52→18:23)
[2020-11-25] MEDS: diphenhydrAMINE 50 MG/ML VIAL IV PRN ×4 (00:36→22:38)
[2020-11-25] MEDS: ALUMINUM/MAGNESIUM SUSP 30 ML UDC PO PRN ×3 (00:37→19:31)
[2020-11-25] MEDS: SODIUM CHLORIDE 0.9% 1000ML 1,000 ML IV SCH ×2 (00:37→08:02)
[2020-11-25] MEDS: AMPICILLIN/SULBACTAM SOD 3,000 MG in 0.9 % SODIUM CHLORIDE 100 ML IV SCH ×4 (00:37→18:18)
[2020-11-25] MEDS ORDERED: diphenhydrAMINE 50 MG/ML VIAL ONE (07:15)
[2020-11-25] MEDS: KETOROLAC TROMETHAMINE 15 MG/ML VIAL IV PRN ×3 (07:18→22:38)
[2020-11-25] MEDS: guaiFENesin 600 MG TABCR PO SCH ×2 (08:00→21:23)
[2020-11-25] MEDS ORDERED: COUGH DROP (SUGAR FREE) LOZ 24 LOZ/1 BOX BUCCAL ONE (08:05)
[2020-11-25] MEDS ORDERED: COUGH DROP (SUGAR FREE) LOZ 24 LOZ/1 BOX BUCCAL PRN (08:07)
[2020-11-25] MEDS: ONDANSETRON INJ 2 MG/ML 2 ML VIAL IV PRN (08:59)
[2020-11-25] MEDS ORDERED: MECLIZINE HCL 25 MG TAB PO PRN (10:52)
--- NOTE | 2020-11-25 11:43 | Hospitalist Progress Note ---
Date of Service November 25, 2020 Assessment & Plan (1) Sinus pressure: (2) Otitis media: Patient reports pain and pressure more on the right ear than left Otoscopic exam of right right-sided markedly erythematous, bulging tympanic membrane with air-fluid level, Left ear, minimum erythema, no air-fluid levels Continue on IV Unasyn while in hospital, Be discharged on p.o. Augmentin Complains of feeling of pressure, dizzy spells lightheadedness on turning head or changing position, Possible secondary to otitis media, Ordered as needed meclizine trial of as needed Valium (3) Electrolyte abnormality: Resolved, normal potassium magnesium level, No nausea vomiting or diarrhea since admission patient's appetite been normal, tolerating all of meals Disposition: Tentative discharge home when medically stable Admission and Anticipated Discharge Date Admission Date: November 23, 2020 Subjective Follow-up visit for otitis media/headache/earache Patient reports improvement of right ear pain and pressure, Dizzy spell has improved, No fever chills, night no chest pain no cough Review of Systems Review of Systems: All systems reviewed & are unremarkable except as noted in Subjective Physical Exam Physical Exam: Physical exam: General: No acute distress, alert awake oriented x3 HEENT: Anicteric sclera, Otoscopic exam of right ear: Tympanic membrane appears to be bulged, injected, with air-fluid level Exam of left ear: Minimum injection, no bulging or air-fluid level noted Heart: Regular S1-S2, no carotid bruit, no JVD, no lower extremity edema Lungs: Clear to auscultate, no wheeze or rales Abdomen: Soft nontender, no organomegaly Extremity: No cyanosis, no deformity, normal strength 5 out of 5 with upper and lower Neuro: No focal neurological deficit normal speech, normal visual field, Motor strength : normal both upper and lower extremity, sensation intact Psych: Alert awake oriented x3, normal affect
[2020-11-26] MEDS: AMPICILLIN/SULBACTAM SOD 3,000 MG in 0.9 % SODIUM CHLORIDE 100 ML IV SCH ×3 (02:25→13:26)
[2020-11-26] MEDS: diazePAM 2 MG TABLET PO PRN (02:33)
[2020-11-26] MEDS: ONDANSETRON INJ 2 MG/ML 2 ML VIAL IV PRN ×2 (02:33→22:26)
[2020-11-26] MEDS: guaiFENesin 600 MG TABCR PO SCH ×2 (08:17→20:29)
[2020-11-26] MEDS: KETOROLAC TROMETHAMINE 15 MG/ML VIAL IV PRN ×2 (09:25→22:25)
[2020-11-26] MEDS: diphenhydrAMINE 50 MG/ML VIAL IV PRN ×2 (09:26→22:25)
--- NOTE | 2020-11-26 13:06 | Hospitalist Progress Note ---
Date of Service November 26, 2020 Assessment & Plan (1) Sinus pressure: (2) Otitis media: Patient reports pain and pressure more on the right ear than left Otoscopic exam of right right-sided markedly erythematous, bulging tympanic membrane with air-fluid level, Left ear, minimum erythema, no air-fluid levels Patient clinically much improved, Will change antibiotic to p.o. Augmentin, patient will need to complete 5 days of treatment Dizzy spell: Possible secondary to otitis media, Complains of feeling of pressure, dizzy spells lightheadedness on turning head or changing position, Patient reports improvement of symptoms Ordered as needed meclizine (3) Electrolyte abnormality: Resolved, normal potassium magnesium level, No nausea vomiting or diarrhea since admission patient's appetite been normal, tolerating all of meals Disposition: Plan for discharge home tomorrow Admission and Anticipated Discharge Date Admission Date: November 23, 2020 Subjective Follow-up visit for otitis media/headache/earache Patient reports much improvement of symptoms, minimal pain and discomfort in right ear, Pressure discomfort on the left side, No dizzy spell or lightheadedness, no nausea vomiting No fever cough Hoping to be discharged home tomorrow Physical Exam Physical Exam: Physical exam: General: No acute distress, alert awake oriented x3 HEENT: Anicteric sclera, Otoscopic exam of right ear: Tympanic membrane appears to be bulged, injected, with air-fluid level Exam of left ear: Minimum injection, no bulging or air-fluid level noted Heart: Regular S1-S2, no carotid bruit, no JVD, no lower extremity edema Lungs: Clear to auscultate, no wheeze or rales Abdomen: Soft nontender, no organomegaly Extremity: No cyanosis, no deformity, normal strength 5 out of 5 with upper and lower Neuro: No focal neurological deficit normal speech, normal visual field, Motor strength : normal both upper and lower extremity, sensation intact Psych: Alert awake oriented x3, normal affect Results & Data Results & Data ([facility]) Vital Signs (Past 12 Hours) Vital Signs Temp Pulse Resp BP Pulse Ox 11/26/20 07:27 36.7 C 59 L 16 147/94 H 100
[2020-11-26] MEDS: ALUMINUM/MAGNESIUM SUSP 30 ML UDC PO PRN ×2 (13:32→20:02)
[2020-11-26] MEDS: AMOXICILLIN/CLAVULANATE 875 MG TAB PO SCH (20:29)
[2020-11-27] MEDS: AMOXICILLIN/CLAVULANATE 875 MG TAB PO SCH (09:13)
[2020-11-27] MEDS: guaiFENesin 600 MG TABCR PO SCH (09:13)
[2020-11-27] MEDS: ALUMINUM/MAGNESIUM SUSP 30 ML UDC PO PRN (09:16)
--- NOTE | 2020-11-27 11:02 | Discharge Summary ---
Date of Service November 27, 2020 Admission HPI Per Admitting Provider This is a 50-year-old female with history of chronic sinusitis, present to ER with complaint of intractable nausea vomiting for past 2 to 3 days, Had ongoing sinus pressure, ear ache mostly on the right, With posterior nasal drainage Has been afebrile, No cough no shortness of breath Principal Diagnosis OTITIS MEDIA HEADACHE DIZZY SPELL Discharge Exam Physical exam: General: No acute distress, alert awake oriented x3 HEENT: PERRLA, EOMI, Heart: Regular S1-S2, no carotid bruit, no JVD, no lower extremity edema Lungs: Clear to auscultate, no wheeze or rales Abdomen: Soft nontender, no organomegaly Extremity: No cyanosis, no deformity, normal strength 5 out of 5 with upper and lower Neuro: No focal neurological deficit normal speech, normal visual field, Motor strength : normal both upper and lower extremity, sensation intact Psych: Alert awake oriented x3, normal affect Discharge Data Allergies Allergy/AdvReac Type Severity Reaction Status Date / Time No Known Allergies Allergy Unverified 03/15/20 13:45 Consultations 11/23/20 10:59 ED Decision to Admit Stat Ordered Studies 11/23/20 09:06 CT angio head w con Stat CT angio neck with con Stat CT head/brain wo con Stat Hospital Course (1) Sinus pressure: (2) Otitis media: Presented with pain and pressure more on the right ear than left Otoscopic exam of right right-sided markedly erythematous, bulging tympanic membrane with air-fluid level, Left ear, minimum erythema, no air-fluid levels Patient clinically much improved, Antibiotic changed to p.o. Augmentin Right ear pain/pressure has markedly improved No fever or chills Dizzy spell: Possible secondary to otitis media, Patient reports improvement of symptoms Ordered as needed meclizine /and Zofran on discharge (3) Electrolyte abnormality: Resolved, normal potassium magnesium level, No nausea vomiting or diarrhea since admission patient's appetite been normal, tolerating all of meals Disposition: Stable to be discharged home today Total Time Total Time Spent Total Time Spent (In Minutes): 35 minutes Total Time Includes: Examination of the Patient, Discharge Planning and Medication Reconciliation Discharge Plan Discharge Items Patient Disposition: Home - Self-Care Reason For Visit: HEADACHE,SINUS PRESSURE Discharge Diagnosis: OTITIS MEDIA HEADACHE DIZZY SPELL Activity: Resume your previous activity Non-emergency contact: Primary Care Provider Call non-emergency contact if: you have any medication questions Follow-up/Referrals: Kerry Marquez DO [Primary Care Provider] - 11/30/20 1:40 pm (Date & Time 11/30/2020 1:40 PM Provider Kerry Marquez DO Department Family Practice [facility] ) Diet: Regular Addtl Attending Provider Instructions: Please take all medications as instructed on discharge list below. It is recommended that you follow-up with your primary care physician within 1-2 weeks of hospital discharge to ensure you are still doing well. Please call if you have any questions or problems. You can reach a [facility] hospitalist on duty at [facility] 24 hours a day by calling [phone] Pending Studies at Discharge: No Stand-Alone Forms: My [facility], Opioid Pain Management, Work/School Release (Inpt), Smoking Cessation Medications and DC Order Prescriptions: New amoxicillin-pot clavulanate [Augmentin] 875-125 mg Tablet 1 tab PO BIDM 5 Days Qty: 10 RF: 0 meclizine 25 mg Tablet 25 mg PO Q6 PRN (Reason: dizziness) Qty: 60 RF: 0 ondansetron HCl [Zofran] 4 mg tablet 4 mg PO Q8H PRN (Reason: nausea and vomiting) Qty: 60 RF: 0 Continued ondansetron HCl [Zofran] 4 mg Tablet 4 mg PO Q6H RF: 0 pseudoephedrine HCl 60 mg Tablet 60 mg PO Q6H PRN (Reason: Congestion) RF: 0 acetaminophen 500 mg Capsule 1,000 mg PO Q6H PRN (Reason: Pain) RF: 0 Nexplanon 68 mg Implant 68 mg SUBDERMAL CONTINOUS RF: 0 guaifenesin [Mucinex] 600 mg Tablet Extended Release 12hr 600 mg PO BID RF: 0 Discharge Orders: Discharge Order (Routine); Ordered 11/27/20 Ordered By: Carissa Small/Other Patient Handouts: Sinus Headaches, Anatomy of the Inner Ear Admission Data Admit Date/Time: 11/23/20 11:59 Attending Provider: Carissa Mcintyre Admit Provider: Carissa Mcintyre Primary Care Provider: Kerry Marquez Other Providers: Girma Dee Other Interventions: Discharge Summary Assessment (RN) Last Done: 11/27/20 13:09
== END 2020-11-27 13:46 | disposition home or self-care (01) | DRG 153 ==
LOC: ED 06:03 → 2W 11:59 → 3E 11-25 13:41

== ENCOUNTER 2025-02-11 16:58 | Inpatient (IN) ==
--- NOTE | 2025-02-11 17:29 | Emergency Department Note ---
Impression & Plan Abdominal pain, Acute hypokalemia, Colitis, Elevated lactic acid level, Ketonuria ED Provider Note HISTORY OF PRESENT ILLNESS: Patient is a 54-year-old female presenting with abdominal pain. Patient reports that she started having vomiting and diarrhea 6 days ago that lasted for 3 days. She states that she has had decreased oral intake. States that today acutely at 9:30 AM she started having lower abdominal pain. She reports that "feels like something is twisting inside of me." She reports abdominal surgical history significant for a cholecystectomy. She states that she "is like I am going to explode." Patient is writhing [id number] on the bed and difficult to get a history from. She denies any fevers. Denies any recent sick contact exposures. Denies any recent travel. Denies any dysuria or hematuria. ROS: as above PHYSICAL EXAM: Constitutional: Patient appears in moderate distress. Patient is writhing around on the bed HENT: Head: Normocephalic and atraumatic. Eyes: EOMI, PERRL Mouth/Throat: Mucous membranes dry. Neck: Trachea midline. Neck supple. Cardiovascular: RRR, No murmurs, rubs or gallops. Intact distal pulses. Pulmonary/Chest: No respiratory distress. Breath sounds clear and equal bilaterally. No wheezes or rales. Abdominal: Abdomen soft, no rebound or guarding. RLQ TTP Musculoskeletal: No edema, tenderness or deformity noted. Skin: Warm and dry. No rash, erythema, pallor or cyanosis Psychiatric: Appropriate mood and affect for situation. Neurological: Alert and keenly responsive. CN II-XII grossly intact, moving all extremities equally and fully. MDM: - Vitals signs showed tachypnea - History obtained via patient. History as above. - Chronic conditions affecting care: HTN; DM-2 - Differential diagnoses include, but are not limited to: appendicitis; small bowel obstruction; colitis; ischemic colitis; diverticulitis; UTI; ureteral stone - Order placed for continuous cardiac monitoring. At this time, monitor showed rate of 87 bpm with normal sinus rhythm, per my interpretation. - External medical records reviewed. - Laboratory workup interpreted by myself showed leukocytosis (WBC 14.88) with neutrophil predominance; slight hyponatremia (Na 134); hypokalemia (K 2.2); elevated anion gap (15); hyperglycemia (Glucose 200); elevated lactate (2.4); elevated AST (73); normal lipase - Patient initially given 1L NS, 4 mg IV zofran and 50 mcg IV fentanyl on arrival to symptom management. Still complaining of significant pain and given 4 mg IV morphine - Given 30 mEq IV potassium in ER. - CT abdomen/pelvis with IV contrast showed diffuse large bowel distension and fluid feeling with inflammatory fat stranding concerning for descending colon colitis. - UA negative for infection, but noted to have significant amounts of ketones. - On reassessment at 20:50, patient is still writhing around in pain that seems out of proportion to examination. 0.5 mg IV Dilaudid was ordered for further pain management. - Did discuss case with general surgeon on-call, given patient's continued abdominal pain. Though I think ischemic colitis is unlikely, given that she does appear clinically dehydrated and that may be the source of her bump lactic acid, do feel that surgical consultation is warranted. Dr. Jeffries was contacted at 20:55. She reviewed patient's CT imaging and reports no significant abnormalities other than the bowel dilatation. - Discussion was had with complex case manager about patient's case and need for admission - Hospitalist, Dr. Anaya, consulted for admission - Patient admitted to [facility] for further evaluation and management. ASSESSMENT AND PLAN: Diagnosis: abdominal pain; acute hypokalemia; elevated lactic acid level; colitis; ketonuria Plan: admit Past Med/Surg History Problem List (Updated 02/11/25 @ 20:47 by Carolina Coombs MD) Ketonuria (Acute) Elevated lactic acid level (Acute) Colitis (Acute) Acute hypokalemia (Acute) Abdominal pain (Acute) Hypokalemia (Acute) Hypomagnesemia (Acute) Vertigo (Acute) Sinus headache (Acute) Electrolyte abnormality Otitis media Sinus pressure Hyperglycemia Asymptomatic microscopic hematuria Epigastric pain Diarrhea Coffee ground emesis Intractable nausea and vomiting (Acute) Nausea & vomiting (Acute) Abdominal pain (Acute) Amenorrhea (Acute) Nexplanon in place (Acute) Chronic frontoethmoidal sinusitis Chronic maxillary sinusitis Medical History (Updated 02/11/25 @ 20:47 by Carolina Coombs MD) No pertinent past medical history Surgical History History of colonoscopy History of sinus surgery History of laparoscopic cholecystectomy History of tonsillectomy Family History Brother Ulcerative colitis Unknown Alcoholism Irritable bowel syndrome Grandmother Breast cancer maternal Denies family history of Ovarian cancer Crohn's disease Colorectal cancer Uterine cancer Social History Smoking Status: Never smoker Tobacco Type: Cigarettes Second Hand Exposure: No; Do You Dip or Chew Tobacco: No; Hx Alcohol Use: No Hx Substance Use: No Preferred Language: Marshallese Communication Ability: Effective Watch Case Polisher Required: No Beliefs That Will Affect Care: None and Roman Catholic Current Living Situation: Significant Other Feels Safe at Home: Yes Assistive Devices: None Allergies Allergies Allergy/AdvReac Type Severity Reaction Status Date / Time No Known Allergies Allergy Unverified 03/15/20 13:45 Home Meds Home Medications Medication Instructions Recorded Confirmed acetaminophen 500 mg capsule 1,000 mg PO Q6H PRN Pain 11/23/20 11/23/20 etonogestrel 68 mg subdermal 68 mg subdermal CONTINOUS 11/23/20 11/23/20 implant (Nexplanon) guaifenesin 600 mg tablet, 600 mg PO BID 11/23/20 11/23/20 extended release 12 hr (Mucinex) ondansetron HCl 4 mg tablet 4 mg PO Q6H 11/23/20 11/23/20 (Zofran) pseudoephedrine HCl 60 mg tablet 60 mg PO Q6H PRN Congestion 11/23/20 11/23/20 Previous Rx's Medication Instructions Recorded meclizine 25 mg tablet 25 mg PO Q6 PRN dizziness #60 tabs 11/26/20 ondansetron HCl 4 mg tablet 4 mg PO Q8H PRN nausea and 11/27/20 (Zofran) vomiting 0 days #60 tabs Results & Data (ED) Vital Signs Vital Signs - 24 hr 02/11/25 17:03 02/11/25 17:21 02/11/25 17:45 Temperature 36.9 C Temperature Source Temporal Artery Scan Pulse Rate 86 84 83 Pulse Rate [Apical] Pulse Rate from SpO2 Sensor 83 Respiratory Rate 26 H 20 Respiratory Effort / Characteristics Spontaneous Respiratory Depth Respiratory Pattern Regular Blood Pressure 129/68 Blood Pressure [Left Arm] Blood Pressure Mean 88 Blood Pressure Mean [Left Arm] Pulse Oximetry 97 98 Oxygen Delivery Method Room Air Sepsis Recent Fever Within 48 Hours No Sepsis New/Unexplained Change in Mental Status No Sepsis Action Taken by Nursing No Action Required 02/11/25 18:07 02/11/25 18:09 02/11/25 18:30 Temperature Temperature Source Pulse Rate 86 Pulse Rate [Apical] 82 Pulse Rate from SpO2 Sensor 86 Respiratory Rate 24 22 Respiratory Effort / Characteristics Non-Labored Spontaneous Respiratory Depth Normal Respiratory Pattern Blood Pressure 155/104 H Blood Pressure [Left Arm] 129/68 Blood Pressure Mean 121 Blood Pressure Mean [Left Arm] 88 Pulse Oximetry 98 98 100 Oxygen Delivery Method Room Air Room Air Sepsis Recent Fever Within 48 Hours Sepsis New/Unexplained Change in Mental Status Sepsis Action Taken by Nursing 02/11/25 19:33 Temperature Temperature Source Pulse Rate 74 Pulse Rate [Apical] Pulse Rate from SpO2 Sensor 75 Respiratory Rate 24 Respiratory Effort / Characteristics Respiratory Depth Respiratory Pattern Blood Pressure Blood Pressure [Left Arm] Blood Pressure Mean Blood Pressure Mean [Left Arm] Pulse Oximetry 99 Oxygen Delivery Method Sepsis Recent Fever Within 48 Hours Sepsis New/Unexplained Change in Mental Status Sepsis Action Taken by Nursing Laboratory Data 02/11/25 17:33 02/11/25 17:33 Lab Results 02/11/25 02/11/25 Range/Units 17:33 18:36 WBC 14.88 H (4.8-10.8) K/ul RBC 4.74 (4.20-5.40) M/uL Hgb 13.7 (12.0-16.0) g/dl Hct 39.2 (37.0-47.0) % MCV 82.7 (80.0-100.0) fL MCH 28.9 (25.0-34.0) pg MCHC 34.9 (32.0-36.0) g/dL RDW Std Deviation 41.0 (36.4-46.3) fL RDW Coeff of [place] 13.5 (11.5-14.5) % Plt Count 257 (130-400) K/uL MPV 10.7 (9.4-12.4) fL Immature Gran % (Auto) 0.5 % Neut % (Auto) 92.4 % Lymph % (Auto) 4.3 % [place] % (Auto) 2.6 % Eos % (Auto) 0.1 % Baso % (Auto) 0.1 % Neut # (Auto) 13.76 H (1.40-6.50) K/uL Lymph # (Auto) 0.64 L (1.20-3.40) K/uL [place] # (Auto) 0.38 (0.11-0.59) K/uL Eos # (Auto) 0.01 (0.00-0.50) K/uL Baso # (Auto) 0.02 (0.00-0.20) K/uL Immature Gran # (Auto) 0.07 (0.01-0.20) K/uL Hypersegmented Neuts 1+ Toxic Granulation 1+ Sodium 134 L (136-145) mmol/L Potassium 2.2 L* (3.5-5.1) mmol/L Chloride 86 L (98-107) mmol/L Carbon Dioxide 33 H (21-32) mmol/L Anion Gap 15 H (3-11) BUN 18 (6-23) mg/dl Creatinine 0.71 (0.6-1.2) mg/dl Est Cr Clr Drug Dosing 125.4 ml/min eGFR 101.61 BUN/Creatinine Ratio 25.4 H (10-20) Glucose 200 H (70-99(Fasting)) mg/dl Lactate 2.4 H* (0.4-2.0) mmol/L Calcium 9.4 (8.6-10.3) mg/dl Magnesium 1.8 (1.7-2.4) mg/dl Total Bilirubin 0.8 (0.2-1.0) mg/dl AST 73 H (13-39) U/L ALT 46 (7-52) U/L Alkaline Phosphatase 74 (34-104) U/L Total Protein 8.1 (6.0-8.3) gm/dl Albumin 4.1 (3.4-5.0) gm/dl Globulin 4.0 (2.5-4.0) gm/dl Albumin/Globulin Ratio 1.0 (0.9-2) Lipase 37 (11-82) U/L Urine Color Dark Yellow Urine Appearance Cloudy A (Clear) Urine pH >= 9.0 H (4.5-7.5) Ur Specific [place] 1.020 (1.000-1.030) Urine Protein 2+ H (Negative) Urine Glucose (UA) Negative (Negative) Urine Ketones 3+ H (Negative) Urine Blood Negative (Negative) Urine Nitrite Negative (Negative) Urine Bilirubin Negative (Negative) Urine Urobilinogen Negative (Negative) Ur Leukocyte Esterase Trace H (Negative) Urine WBC (Auto) 0-5 (0-5) /hpf Urine RBC (Auto) 6-10 H (0-2) /hpf U Hyaline Cast (Auto) 0-2 (0-2) /lpf U Epithel Cells (Auto) 0-2 (0-2) /hpf Urine Bacteria (Auto) None Seen (None Seen) Urine Comment Administered Medications Potassium Chloride (K [place] / Wtr) 10 meq in 100 mls @ 100 mls/hr IV Q1H DENNISE Stop: 02/11/25 21:44 Last Admin: 02/11/25 19:57 Dose: 100 mls/hr Documented By: Infusion: 02/11/25 19:41 Dose: Infused Documented By: Admin: 02/11/25 18:41 Dose: 100 mls/hr Documented By: TIMOTHY Discontinued Medications Fentanyl Citrate (Fentanyl Citrate Pf 100 Mcg/2 Ml Vial) 50 mcg IV NOW STA Stop: 02/11/25 17:26 Last Admin: 02/11/25 17:39 Dose: 50 mcg Documented By: TIMOTHY Sodium Chloride (Nss) 1,000 mls @ 999 mls/hr IV .Q1H1M ONE Stop: 02/11/25 18:25 Last Infusion: 02/11/25 18:49 Dose: Infused Documented By: Admin: 02/11/25 17:40 Dose: 999 mls/hr Documented By: TIMOTHY Morphine Sulfate (Morphine Sulfate 4 Mg/Ml 1 Ml Carp\\Vial) 4 mg IV NOW STA Stop: 02/11/25 18:21 Last Admin: 02/11/25 18:27 Dose: 4 mg Documented By: TIMOTHY Ondansetron HCl (Ondansetron Inj 2 Mg/Ml 2 Ml Vial) 4 mg IV NOW STA Stop: 02/11/25 17:26 Last Admin: 02/11/25 17:40 Dose: 4 mg Documented By: TIMOTHY Ondansetron HCl (Ondansetron Inj 2 Mg/Ml 2 Ml Vial) 4 mg IV NOW STA Stop: 02/11/25 19:48 Last Admin: 02/11/25 19:58 Dose: 4 mg Documented By: SARI Imaging Data Radiologist's Impression: Abdomen/Pelvis CT 02/11/25 17:25 EXAMINATION: CT of the abdomen and pelvis performed after the administration of IV contrast TECHNIQUE: Helical CT images from the lung bases through the symphysis pubis were obtained with contrast. Coronal and sagittal reformatted images were generated at a workstation for further assessment. Dose reduction techniques were achieved by using automatic exposure control and/or adjustment of mA and/or kV according to patient size and/or use of iterative reconstruction technique. COMPARISON: None HISTORY: Abdominal pain FINDINGS: Lower chest: No consolidation. No pleural effusion or pneumothorax. Liver: No suspicious liver lesions. Portal veins appear patent. Gallbladder: Cholecystectomy. Spleen: Normal size. Pancreas: No suspicious pancreatic lesions. The pancreatic duct is not dilated. Adrenal glands: No adrenal nodules. Kidneys: No hydronephrosis or obstructing renal stones. Bladder / Pelvic organs: Unremarkable. Bowel: No bowel obstruction. Diffuse mild distention and fluid filling of the large bowel. Inflammatory fat stranding is seen along the length of the descending colon. The appendix is unremarkable. Lymph nodes: No retroperitoneal, mesenteric, or pelvic lymphadenopathy. Peritoneum / Retroperitoneum: No free fluid or air within the abdomen. Vessels: No infrarenal aortic aneurysm. Bones and soft tissues: No suspicious lesion in the bones. IMPRESSION: Diffuse large bowel distention, and fluid filling, with inflammatory fat stranding about the descending colon seen, is compatible with colitis, and a diarrheal illness. Electronically signed by Nacho Epps 02-11-2025 8:37 PM Discharge Plan Visit Data Chief Complaint: Abdominal Pain Stated Complaint: ABD PAIN ED Provider: Carolina Coombs Discharge Problem: Abdominal pain, Acute hypokalemia, Colitis, Elevated lactic acid level, Ketonuria Condition: Fair Forms Stand Alone Forms: [employer] Prescriptions Prescriptions: No Action ondansetron HCl [Zofran] 4 mg Tablet 4 mg PO Q6H pseudoephedrine HCl 60 mg Tablet 60 mg PO Q6H PRN (Reason: Congestion) acetaminophen 500 mg Capsule 1,000 mg PO Q6H PRN (Reason: Pain) Nexplanon 68 mg Implant 68 mg SUBDERMAL CONTINOUS guaifenesin [Mucinex] 600 mg Tablet Extended Release 12hr 600 mg PO BID meclizine 25 mg Tablet 25 mg PO Q6 PRN (Reason: dizziness) Qty: 60 0RF ondansetron HCl [Zofran] 4 mg tablet 4 mg PO Q8H PRN (Reason: nausea and vomiting) Qty: 60 0RF Referrals Referrals: Ross Garcia M.D. [Outside Practitioners] -
[2025-02-11] MEDS: ONDANSETRON INJ 2 MG/ML 2 ML VIAL IV STA ×2 (17:40→19:58)
[2025-02-11] MEDS: SODIUM CHLORIDE 0.9% 1,000 ML IV ONE (17:40)
[2025-02-11 18:06] LABS: Hematocrit (blood only) 39.2 % (37.0-47.0); Hemoglobin 13.7 g/dl (12.0-16.0); Mean Corpuscular Hemoglobin 28.9 pg (25.0-34.0); Mean Corpuscular Volume 82.7 fL (80.0-100.0); Platelet Count 257 K/uL (130-400); RDW Standard Deviation 41.0 fL (36.4-46.3); Red Blood Count 4.74 M/uL (4.20-5.40); White Blood Count 14.88 K/ul (4.8-10.8)
[2025-02-11 18:22] LABS: Hypersegmented Neutrophils 1+; Immature Granulocytes # (auto) 0.07 K/uL (0.01-0.20); Immature Granulocytes % (auto) 0.5 %; Toxic Granulation 1+
[2025-02-11] MEDS: MoRPHine SULFATE 4 MG/ML 1 ML CARP\\VIAL IV STA (18:27)
[2025-02-11 18:37] LABS: Alanine Aminotransferase 46.0 U/L (7-52); Albumin Globulin Ratio 1.0 (0.9-2); Alkaline Phosphatase 74.0 U/L (34-104); Anion Gap 15.0 (3-11); Bilirubin,Total 0.8 mg/dl (0.2-1.0); Blood Urea Nitrogen 18.0 mg/dl (6-23); Calcium 9.4 mg/dl (8.6-10.3); Carbon Dioxide 33.0 mmol/L (21-32); Chloride 86.0 mmol/L (98-107); Creatinine Clr Calc Pharmacy 125.4 ml/min; Globulin 4.0 gm/dl (2.5-4.0); Glucose 200.0 mg/dl (70-99(Fasting)); Lipase 37.0 U/L (11-82); Potassium 2.2 mmol/L (3.5-5.1); Sodium 134.0 mmol/L (136-145); Total Protein 8.1 gm/dl (6.0-8.3)
[2025-02-11] MEDS: POTASSIUM CHLORIDE / WTR 10 MEQ/100 ML PLCT IV SCH (18:41)
[2025-02-11 19:36] LABS: Appearance Urine Cloudy (Clear); Bacteria Urine Automated None Seen (None Seen); Cast Urine Automated 0-2 /lpf (0-2); Epithelial Cell Urine Auto 0-2 /hpf (0-2); Glucose Urine UA Negative (Negative); WBC Urine Automated 0-5 /hpf (0-5)
[2025-02-11 19:40] LABS: Magnesium 1.8 mg/dl (1.7-2.4)
--- NOTE | 2025-02-11 20:38 | CT Scan Report ---
EXAMINATION: CT of the abdomen and pelvis performed after the administration of IV contrast TECHNIQUE: Helical CT images from the lung bases through the symphysis pubis were obtained with contrast. Coronal and sagittal reformatted images were generated at a workstation for further assessment. Dose reduction techniques were achieved by using automatic exposure control and/or adjustment of mA and/or kV according to patient size and/or use of iterative reconstruction technique. COMPARISON: None HISTORY: Abdominal pain FINDINGS: Lower chest: No consolidation. No pleural effusion or pneumothorax. Liver: No suspicious liver lesions. Portal veins appear patent. Gallbladder: Cholecystectomy. Spleen: Normal size. Pancreas: No suspicious pancreatic lesions. The pancreatic duct is not dilated. Adrenal glands: No adrenal nodules. Kidneys: No hydronephrosis or obstructing renal stones. Bladder / Pelvic organs: Unremarkable. Bowel: No bowel obstruction. Diffuse mild distention and fluid filling of the large bowel. Inflammatory fat stranding is seen along the length of the descending colon. The appendix is unremarkable. Lymph nodes: No retroperitoneal, mesenteric, or pelvic lymphadenopathy. Peritoneum / Retroperitoneum: No free fluid or air within the abdomen. Vessels: No infrarenal aortic aneurysm. Bones and soft tissues: No suspicious lesion in the bones. IMPRESSION: Diffuse large bowel distention, and fluid filling, with inflammatory fat stranding about the descending colon seen, is compatible with colitis, and a diarrheal illness. Electronically signed by Nacho Epps 02-11-2025 8:37 PM
[2025-02-11] MEDS: HYDROmorphone INJ 0.5 MG/0.5 ML SYR IV STA ×2 (21:16→22:34)
[2025-02-11] MEDS: diphenhydrAMINE 50 MG/ML VIAL IV STA (21:50)
[2025-02-11] MEDS: FAMOTIDINE 20MG IV PUSH 20 MG/5 ML SYR IV STA (21:56)
--- NOTE | 2025-02-11 22:14 | History & Physical Report ---
Date of Service February 11, 2025 Assessment & Plan (1) Intractable abdominal pain: Plan: 54-year-old female with past med history significant for type 2 diabetes, hypertension, obesity comes because of severe abdominal pain. Patient says since about a week she is having diarrhea and nausea and vomiting but today morning she started to have severe abdominal pain which prompted her to come to the ER. She had 1 episode of black stools during this time. She is having diffuse abdominal pain and she is writhing in pain. She says having on and off low-grade fevers. She recently was treated for sinusitis with Augmentin. As per epic she took Augmentin for 10 days and completed course on January 16. She also started metformin a month ago for diabetes. She is still having on and off headaches and dizziness and attributes to her sinusitis. Currently no runny nose or sore throat. No chest pain or shortness of breath. Hemodynamics are okay. Saturating okay on room air. Intractable abdominal pain Started today morning Since about 1 week have diarrhea and nausea and vomiting Initial lactic is 2.4 and repeat is 1.[address] scan showing diffuse large bowel distention and fluid filling with inflammatory fat stranding about the descending colon compatible with colitis and a diarrheal illness. Will follow stool studies and stool for C. difficile Empiric Rocephin and Flagyl Pain control N.p.o., IV fluids, IV antiemetics as needed GI consult and close monitor Hypokalemia Potassium 2.2 Replace and follow closely Leukocytosis Follow repeat labs Antibiotics as above Hypertension Holding triamterene and hydrochlorothiazide IV labetalol as needed for now Diabetes Hold metformin Sliding scale We will monitor Obesity Counseling DVT prophylaxis SCDs for now Disposition Telemetry Full code. History of Present Illness Chief Complaint: Severe abdominal pain Primary Care Provider: George Kasper MD 54-year-old female with past med history significant for type 2 diabetes, hypertension, obesity comes because of severe abdominal pain. Patient says since about a week she is having diarrhea and nausea and vomiting but today morning she started to have severe abdominal pain which prompted her to come to the ER. She had 1 episode of black stools during this time. She is having diffuse abdominal pain and she is writhing in pain. She says having on and off low-grade fevers. She recently was treated for sinusitis with Augmentin. As per epic she took Augmentin for 10 days and completed course on January 16. She also started metformin a month ago for diabetes. She is still having on and off headaches and dizziness and attributes to her sinusitis. Currently no runny nose or sore throat. No chest pain or shortness of breath. Hemodynamics are okay. Saturating okay on room air. Past medical history. As mentioned above. Past surgical history. Ovarian cyst remote. Sister remote from both head and back. Adenoidectomy. Tonsillectomy. Cholecystectomy. Repair of nasal septum. Sinus surgery. Social history. No smoking. Alcohol once or twice a week per [facility]. No drug use. Family history. Maternal grandfather had brain cancer at age 60. Maternal grandmother had breast cancer age 60s. Brother had colitis and had 2 third colon removed. Mother had depression. Allergies Allergy/AdvReac Type Severity Reaction Status Date / Time No Known Allergies Allergy Unverified 03/15/20 13:45 Home Medications Medication Instructions Recorded Confirmed Type metformin 500 mg tablet,extended 500 mg PO DAILY 02/11/25 02/11/25 History release 24 hr triamterene 37.5 1 cap PO DAILY 02/11/25 02/11/25 History mg-hydrochlorothiazide 25 mg capsule Past Med/Surg History Problem List (Updated 02/11/25 @ 22:16 by Akash Anaya MD) Intractable abdominal pain Ketonuria (Acute) Elevated lactic acid level (Acute) Colitis (Acute) Acute hypokalemia (Acute) Abdominal pain (Acute) Hypokalemia (Acute) Hypomagnesemia (Acute) Vertigo (Acute) Sinus headache (Acute) Electrolyte abnormality Otitis media Sinus pressure Hyperglycemia Asymptomatic microscopic hematuria Epigastric pain Diarrhea Coffee ground emesis Intractable nausea and vomiting (Acute) Nausea & vomiting (Acute) Abdominal pain (Acute) Amenorrhea (Acute) Nexplanon in place (Acute) Chronic frontoethmoidal sinusitis Chronic maxillary sinusitis Medical History (Updated 02/11/25 @ 22:16 by Akash Anaya MD) No pertinent past medical history Surgical History History of colonoscopy History of sinus surgery History of laparoscopic cholecystectomy History of tonsillectomy Family History Brother Ulcerative colitis Unknown Alcoholism Irritable bowel syndrome Grandmother Breast cancer maternal Denies family history of Ovarian cancer Crohn's disease Colorectal cancer Uterine cancer Social History Smoking Status: Never smoker Tobacco Type: Cigarettes Second Hand Exposure: No; Do You Dip or Chew Tobacco: No; Hx Alcohol Use: Yes Alcohol type: beer, wine and hard liquor Hx Substance Use: No Preferred Language: Faroese Communication Ability: Effective Recreation Technician Required: No Beliefs That Will Affect Care: None Current Living Situation: Spouse Other Information That Helps Us Care for You: No Feels Safe at Home: Yes Safety Concerns: Feels Safe At This Time Assistive Devices: Glasses Review of Systems Review of Systems: All systems reviewed & are unremarkable except as noted in HPI & below Physical Exam Physical Exam: General- Not in acute distress Head- atraumatic Eyes- PERRL. ENT- oropharynx clear Neck- supple, no JVD. Lungs- clear to auscultation no wheezing or crackles Heart- regular rate and rhythm; no murmur, no gallop. Abdomen- sluggish bowel sounds, soft, diffuse tender, no guarding or rigidity. no distension. Extremities- no pretibial edema, no erythema seen. Neuro- alert, oriented PERRL, no facial palsy; no dysarthria; moves extremities Results & Data Results & Data Vital Signs (Past 12 Hours) Vital Signs Temp Pulse Pulse Resp BP BP Pulse Ox 02/11/25 21:47 68 02/11/25 21:22 72 19 162/105 H 98 02/11/25 19:33 74 24 99 02/11/25 18:30 86 22 155/104 H 100 02/11/25 18:09 82 24 129/68 98 02/11/25 18:07 98 02/11/25 17:45 83 20 129/68 98 02/11/25 17:21 84 02/11/25 17:03 36.9 C 86 26 H 97 O2 Del Method 02/11/25 21:47 02/11/25 21:22 02/11/25 19:33 02/11/25 18:30 02/11/25 18:09 Room Air 02/11/25 18:07 Room Air 02/11/25 17:45 02/11/25 17:21 02/11/25 17:03 Room Air Diagnostic Findings Laboratory Results WBC 14.88 K/ul (4.8-10.8) H 02/11/25 17:33 RBC 4.74 M/uL (4.20-5.40) 02/11/25 17:33 Hgb 13.7 g/dl (12.0-16.0) 02/11/25 17:33 Hct 39.2 % (37.0-47.0) 02/11/25 17:33 MCV 82.7 fL (80.0-100.0) 02/11/25 17:33 MCH 28.9 pg (25.0-34.0) 02/11/25 17: MCHC 34.9 g/dL (32.0-36.0) 02/11/25 17: RDW Std Deviation 41.0 fL (36.4-46.3) 02/11/25 17: RDW Coeff of [place] 13.5 % (11.5-14.5) 02/11/25 17: Plt Count 257 K/uL (130-400) 02/11/25 17: MPV 10.7 fL (9.4-12.4) 02/11/25 17:33 Immature Gran % (Auto) 0.5 % 02/11/25 17:33 Neut % (Auto) 92.4 % 02/11/25 17:33 Lymph % (Auto) 4.3 % 02/11/25 17:33 [place] % (Auto) 2.6 % 02/11/25 17:33 Eos % (Auto) 0.1 % 02/11/25 17:33 Baso % (Auto) 0.1 % 02/11/25 17:33 Neut # (Auto) 13.76 K/uL (1.40-6.50) H 02/11/25 17:33 Lymph # (Auto) 0.64 K/uL (1.20-3.40) L 02/11/25 17:33 [place] # (Auto) 0.38 K/uL (0.11-0.59) 02/11/25 17:33 Eos # (Auto) 0.01 K/uL (0.00-0.50) 02/11/25 17:33 Baso # (Auto) 0.02 K/uL (0.00-0.20) 02/11/25 17:33 Immature Gran # (Auto) 0.07 K/uL (0.01-0.20) 02/11/25 17:33 Hypersegmented Neuts 1+ 02/11/25 17:33 Toxic Granulation 1+ 02/11/25 17:33 Sodium 134 mmol/L (136-145) L 02/11/25 17:33 Potassium 2.2 mmol/L (3.5-5.1) L* 02/11/25 17:33 Chloride 86 mmol/L (98-107) L 02/11/25 17:33 Carbon Dioxide 33 mmol/L (21-32) H 02/11/25 17:33 Anion Gap 15 (3-11) H 02/11/25 17:33 BUN 18 mg/dl (6-23) 02/11/25 17:33 Creatinine 0.71 mg/dl (0.6-1.2) 02/11/25 17:33 Est Cr Clr Drug Dosing 125.4 ml/min 02/11/25 17:33 eGFR 101.61 02/11/25 17:33 BUN/Creatinine Ratio 25.4 (10-20) H 02/11/25 17:33 Glucose 200 mg/dl (70-99(Fasting)) H 02/11/25 17:33 Lactate 1.4 mmol/L (0.4-2.0) 02/11/25 21:11 Calcium 9.4 mg/dl (8.6-10.3) 02/11/25 17:33 Magnesium 1.8 mg/dl (1.7-2.4) 02/11/25 17:33 Total Bilirubin 0.8 mg/dl (0.2-1.0) 02/11/25 17:33 AST 73 U/L (13-39) H 02/11/25 17:33 ALT 46 U/L (7-52) 02/11/25 17:33 Alkaline Phosphatase 74 U/L (34-104) 02/11/25 17:33 Total Protein 8.1 gm/dl (6.0-8.3) 02/11/25 17:33 Albumin 4.1 gm/dl (3.4-5.0) 02/11/25 17:33 Globulin 4.0 gm/dl (2.5-4.0) 02/11/25 17:33 Albumin/Globulin Ratio 1.0 (0.9-2) 02/11/25 17:33 Lipase 37 U/L (11-82) 02/11/25 17:33 Urine Color Dark Yellow 02/11/25 18:36 Urine Appearance Cloudy (Clear) A 02/11/25 18:36 Urine pH >= 9.0 (4.5-7.5) H 02/11/25 18:36 Ur Specific [place] 1.020 (1.000-1.030) 02/11/25 18:36 Urine Protein 2+ (Negative) H 02/11/25 18:36 Urine Glucose (UA) Negative (Negative) 02/11/25 18:36 Urine Ketones 3+ (Negative) H 02/11/25 18:36 Urine Blood Negative (Negative) 02/11/25 18:36 Urine Nitrite Negative (Negative) 02/11/25 18:36 Urine Bilirubin Negative (Negative) 02/11/25 18:36 Urine Urobilinogen Negative (Negative) 02/11/25 18:36 Ur Leukocyte Esterase Trace (Negative) H 02/11/25 18:36 Urine WBC (Auto) 0-5 /hpf (0-5) 02/11/25 18:36 Urine RBC (Auto) 6-10 /hpf (0-2) H 02/11/25 18:36 U Hyaline Cast (Auto) 0-2 /lpf (0-2) 02/11/25 18:36 U Epithel Cells (Auto) 0-2 /hpf (0-2) 02/11/25 18:36 Urine Bacteria (Auto) None Seen (None Seen) 02/11/25 18:36 Urine Comment 02/11/25 18:36 Impressions Abdomen/Pelvis CT 02/11/25 17:25 EXAMINATION: CT of the abdomen and pelvis performed after the administration of IV contrast TECHNIQUE: Helical CT images from the lung bases through the symphysis pubis were obtained with contrast. Coronal and sagittal reformatted images were generated at a workstation for further assessment. Dose reduction techniques were achieved by using automatic exposure control and/or adjustment of mA and/or kV according to patient size and/or use of iterative reconstruction technique. COMPARISON: None HISTORY: Abdominal pain FINDINGS: Lower chest: No consolidation. No pleural effusion or pneumothorax. Liver: No suspicious liver lesions. Portal veins appear patent. Gallbladder: Cholecystectomy. Spleen: Normal size. Pancreas: No suspicious pancreatic lesions. The pancreatic duct is not dilated. Adrenal glands: No adrenal nodules. Kidneys: No hydronephrosis or obstructing renal stones. Bladder / Pelvic organs: Unremarkable. Bowel: No bowel obstruction. Diffuse mild distention and fluid filling of the large bowel. Inflammatory fat stranding is seen along the length of the descending colon. The appendix is unremarkable. Lymph nodes: No retroperitoneal, mesenteric, or pelvic lymphadenopathy. Peritoneum / Retroperitoneum: No free fluid or air within the abdomen. Vessels: No infrarenal aortic aneurysm. Bones and soft tissues: No suspicious lesion in the bones. IMPRESSION: Diffuse large bowel distention, and fluid filling, with inflammatory fat stranding about the descending colon seen, is compatible with colitis, and a diarrheal illness. Electronically signed by Nacho Epps 02-11-2025 8:37 PM Code Status & VTE Plan VTE Prophylaxis Plan VTE Prophylaxis will be ordered: Yes
[2025-02-11] MEDS: LABETALOL HCL IV 5 MG/ML 20ML IV STA (22:37)
[2025-02-11] MEDS: HYOSCYAMINE SULFATE 0.125 MG TAB SL STA (22:45)
[2025-02-11] MEDS ORDERED: LABETALOL HCL IV 5 MG/ML 20ML IV PRN (23:32)
[2025-02-11] MEDS ORDERED: DEXTROSE 50% 50 ML SYRINGE IV PRN (23:32)
[2025-02-11] MEDS ORDERED: GLUCOSE 40% GEL 15 GM TUBE PO PRN (23:32)
[2025-02-11] MEDS ORDERED: GLUCOSE 10 TAB/TUBE PO PRN (23:32)
[2025-02-11] MEDS ORDERED: CARBOHYDRATES FOR HYPOGLYCEMIA PO PRN (23:32)
[2025-02-11] MEDS ORDERED: NITROGLYCERIN SL 0.4 MG/TAB TAB SL PRN (23:32)
[2025-02-11] MEDS ORDERED: GLUCAGON FOR INJ 1 MG VIAL SQ PRN (23:32)
[2025-02-12] MEDS: HYDROmorphone INJ 0.5 MG/0.5 ML SYR IV STA (00:11)
[2025-02-12] MEDS: POTASSIUM CHLORIDE / WTR 10 MEQ/100 ML PLCT IV SCH ×2 (00:15→10:00)
[2025-02-12] MEDS: POTASSIUM CHLORIDE 40 MEQ in SODIUM CHLORIDE 0.9% 1,000 ML IV SCH (00:32)
[2025-02-12] MEDS: diphenhydrAMINE 50 MG/ML VIAL IV STA ×2 (00:33→04:47)
[2025-02-12] MEDS: PROMETHAZINE 12.5 MG/50.5 ML BAG IV STA (00:34)
[2025-02-12] MEDS: INSULIN ASPART PER UNIT CHARGE SC SCH ×2 (00:56→18:06)
[2025-02-12] MEDS: cefTRIAXone SODIUM 2,000 MG/50 ML BAG IV SCH (00:57)
[2025-02-12 01:22] LABS: Cdiff Toxin B Gene (2yr or >) Negative Cdiff Gene (Neg)
[2025-02-12] MEDS: metroNIDAZOLE 500 MG/100 ML BAG IV SCH (01:33)
[2025-02-12 01:54] LABS: Adenovirus F 40/41 PCR Not Detected (NotDetected); Campylobacter PCR Not Detected (NotDetected); Enteroaggregative E.coli(EAEC) Not Detected (NotDetected); Shiga-like Toxin E.coli (STEC) Not Detected (NotDetected); Vibrio species PCR Not Detected (NotDetected)
[2025-02-12] MEDS: HYOSCYAMINE SULFATE 0.125 MG TAB SL STA (02:42)
[2025-02-12] MEDS: HYDROmorphone INJ 0.5 MG/0.5 ML SYR IV PRN (04:19)
[2025-02-12 06:38] LABS: Hematocrit (blood only) 34.4 % (37.0-47.0); Hemoglobin 12.0 g/dl (12.0-16.0); Immature Granulocytes # (auto) 0.06 K/uL (0.01-0.20); Immature Granulocytes % (auto) 0.4 %; Mean Corpuscular Hemoglobin 29.7 pg (25.0-34.0); Mean Corpuscular Volume 85.1 fL (80.0-100.0); Platelet Count 167 K/uL (130-400); RDW Standard Deviation 43.0 fL (36.4-46.3); Red Blood Count 4.04 M/uL (4.20-5.40); White Blood Count 16.08 K/ul (4.8-10.8)
[2025-02-12 07:10] LABS: Alanine Aminotransferase 32.0 U/L (7-52); Alkaline Phosphatase 47.0 U/L (34-104); Anion Gap 6.0 (3-11); Bilirubin,Total 0.7 mg/dl (0.2-1.0); Blood Urea Nitrogen 13.0 mg/dl (6-23); Calcium 7.2 mg/dl (8.6-10.3); Carbon Dioxide 31.0 mmol/L (21-32); Chloride 100.0 mmol/L (98-107); Creatinine Clr Calc Pharmacy 151.2 ml/min; Glucose 144.0 mg/dl (70-99(Fasting)); Magnesium 1.7 mg/dl (1.7-2.4); Potassium 2.5 mmol/L (3.5-5.1); Sodium 137.0 mmol/L (136-145); Total Protein 5.9 gm/dl (6.0-8.3)
[2025-02-12] MEDS ORDERED: POTASSIUM PHOS 3 MMOL/1 ML INFUSION IV STA (07:17)
[2025-02-12 07:24] LABS: Hemoglobin A1C 6.8 % (4.5-5.6)
[2025-02-12] MEDS: MAGNESIUM SULFATE / D5W 1 GM/100 ML BAG IV SCH (07:52)
[2025-02-12] MEDS: POTASSIUM CHLORIDE PWD 20 MEQ PACK PO STA (07:53)
[2025-02-12] MEDS ORDERED: NALOXONE HCL 0.4 MG/1 ML VIAL/CARP IV PRN (08:06)
[2025-02-12] MEDS: CALCIUM GLUCONATE 1,000 MG/60 ML BAG IV STA ×2 (08:08→15:20)
[2025-02-12] MEDS: HYDROmorphone INJ 1 MG/ML SYRINGE IV PRN ×2 (08:46→14:31)
--- NOTE | 2025-02-12 08:46 | Gastrointestinal Consultation ---
Date of Consultation February 12, 2025 Assessment & Plan (1) Intractable abdominal pain: Suspect abdominal pain due to infectious colitis in light of diarrhea and CT scan imaging. Agree with empiric antibiotic therapy. Clear liquid diet as tolerated. Continue to monitor symptoms and physical exam. (2) Diarrhea: Stool studies negative however still consistent with underlying infectious colitis. Continue antibiotics (3) Hypokalemia: Replete potassium losses History of Present Illness Reason for Consultation: Abdominal pain and diarrhea Attending Physician: Jp Manzano MD History of Present Illness Patient presents with 1 week history of worsening crampy abdominal pain in the lower abdomen associated with profuse watery to loose diarrhea and nausea and vomiting. He had low-grade fevers. Was recently on Augmentin for a sinus infection. No recent travel, dubious food encounters or sick contacts. CT scan consistent with colitis. Denies any bright red blood per rectum or melena. Prior cholecystectomy. Allergies Allergy/AdvReac Type Severity Reaction Status Date / Time No Known Allergies Allergy Unverified 03/15/20 13:45 Home Medications Medication Instructions Recorded Confirmed Type metformin 500 mg tablet,extended 500 mg PO DAILY 02/11/25 02/11/25 History release 24 hr triamterene 37.5 1 cap PO DAILY 02/11/25 02/11/25 History mg-hydrochlorothiazide 25 mg capsule Patient History Medical History (Updated 02/12/25 @ 08:48 by Manoj Varghese MD) No pertinent past medical history Surgical History History of colonoscopy History of sinus surgery History of laparoscopic cholecystectomy History of tonsillectomy Family History Brother Ulcerative colitis Unknown Alcoholism Irritable bowel syndrome Grandmother Breast cancer maternal Denies family history of Ovarian cancer Crohn's disease Colorectal cancer Uterine cancer Social History Smoking Status: Never smoker Tobacco Type: Cigarettes Second Hand Exposure: No; Do You Dip or Chew Tobacco: No; Hx Alcohol Use: Yes Alcohol type: beer, wine and hard liquor Hx Substance Use: No Preferred Language: Angolan Communication Ability: Effective Blending Coordinator Required: No Beliefs That Will Affect Care: None Current Living Situation: Spouse Other Information That Helps Us Care for You: No Feels Safe at Home: Yes Safety Concerns: Feels Safe At This Time Assistive Devices: Glasses Review of Systems Review of Systems: No fever No chills No SOB No CP No Lower abdominal pain and diarrhea Physical Exam Physical Exam: Eyes; anicteric HENT No masses Chest clear to A Cor S1, S2 physiologic Abd: softer mild suprapubic periumbilical tenderness no rebound no guarding no masses Ext no edema Results & Data Vital Signs (Past 12 Hours) Vital Signs Temp Pulse Pulse Resp BP BP Pulse Ox 02/12/25 07:20 37.1 C 76 17 135/78 97 02/12/25 03:19 36.9 C 69 24 123/81 98 02/12/25 01:52 69 02/11/25 23:30 37 C 101 H 18 142/87 H 96 02/11/25 23:08 81 18 186/83 H 99 02/11/25 22:55 69 144/78 H 02/11/25 22:54 86 L 02/11/25 22:37 73 195/90 H 02/11/25 22:30 68 22 195/90 H 95 02/11/25 22:23 74 20 202/96 H 98 02/11/25 21:47 68 02/11/25 21:22 72 19 162/105 H 98 O2 Del Method O2 Flow Rate 02/12/25 07:20 Room Air 02/12/25 03:19 Room Air 02/12/25 01:52 02/11/25 23:30 Room Air 02/11/25 23:08 Nasal Cannula 2 02/11/25 22:55 02/11/25 22:54 Nasal Cannula 0 02/11/25 22:37 02/11/25 22:30 Room Air 02/11/25 22:23 Room Air 02/11/25 21:47 02/11/25 21:22 Laboratory Results Laboratory Results - last 48 hr 02/11/25 02/11/25 02/11/25 17:33 18:36 21:11 WBC 14.88 H RBC 4.74 Hgb 13.7 Hct 39.2 MCV 82.7 MCH 28.9 MCHC 34.9 RDW Std Deviation 41.0 RDW Coeff of [place] 13.5 Plt Count 257 MPV 10.7 Immature Gran % (Auto) 0.5 Neut % (Auto) 92.4 Lymph % (Auto) 4.3 [place] % (Auto) 2.6 Eos % (Auto) 0.1 Baso % (Auto) 0.1 Neut # (Auto) 13.76 H Lymph # (Auto) 0.64 L [place] # (Auto) 0.38 Eos # (Auto) 0.01 Baso # (Auto) 0.02 Immature Gran # (Auto) 0.07 Hypersegmented Neuts 1+ Toxic Granulation 1+ Sodium 134 L Potassium 2.2 L* Chloride 86 L Carbon Dioxide 33 H Anion Gap 15 H BUN 18 Creatinine 0.71 Est Cr Clr Drug Dosing 125.4 eGFR 101.61 BUN/Creatinine Ratio 25.4 H Glucose 200 H POC Glucose Estimat Average Glucose Hemoglobin A1c Lactate 2.4 H* 1.4 Calcium 9.4 Phosphorus Magnesium 1.8 Total Bilirubin 0.8 Direct Bilirubin AST 73 H ALT 46 Alkaline Phosphatase 74 Total Protein 8.1 Albumin 4.1 Globulin 4.0 Albumin/Globulin Ratio 1.0 Lipase 37 Urine Color Dark Yellow Urine Appearance Cloudy A Urine pH >= 9.0 H Ur Specific [place] 1.020 Urine Protein 2+ H Urine Glucose (UA) Negative Urine Ketones 3+ H Urine Blood Negative Urine Nitrite Negative Urine Bilirubin Negative Urine Urobilinogen Negative Ur Leukocyte Esterase Trace H Urine WBC (Auto) 0-5 Urine RBC (Auto) 6-10 H U Hyaline Cast (Auto) 0-2 U Epithel Cells (Auto) 0-2 Urine Bacteria (Auto) None Seen Urine Comment Stl C. cayetanensis PCR Stool Rotavirus A PCR Stl Adenov F 40/41 PCR Stool Astrovirus (PCR) Stool Campylobacter PCR Stl C. diff Tox B Gene Stl C. diff [id number] Stool Cryptosporidium PCR Stl E.coli Shiga Tox PCR Stl Enterotoxigenic E PCR Stool EPEC (PCR) Stool EAEC (PCR) Stl E. histolytica PCR Stool Giardia Lamblia PCR Stool Salmonella PCR Stool Sapovirus (PCR) Stl P. shigelloides PCR Stl Shigella/EIEC PCR St Y.enterocolitica PCR Stool Vibrio (PCR) Stl Vibrio cholerae PCR Stl Norovirus GI/GII PCR 02/11/25 02/12/25 02/12/25 21:14 00:22 00:43 WBC RBC Hgb Hct MCV MCH MCHC RDW Std Deviation RDW Coeff of [place] Plt Count MPV Immature Gran % (Auto) Neut % (Auto) Lymph % (Auto) [place] % (Auto) Eos % (Auto) Baso % (Auto) Neut # (Auto) Lymph # (Auto) [place] # (Auto) Eos # (Auto) Baso # (Auto) Immature Gran # (Auto) Hypersegmented Neuts Toxic Granulation Sodium Potassium Chloride Carbon Dioxide Anion Gap BUN Creatinine Est Cr Clr Drug Dosing eGFR BUN/Creatinine Ratio Glucose POC Glucose 162 H Estimat Average Glucose Hemoglobin A1c Lactate Calcium Phosphorus 2.1 L Magnesium Total Bilirubin Direct Bilirubin AST ALT Alkaline Phosphatase Total Protein Albumin Globulin Albumin/Globulin Ratio Lipase Urine Color Urine Appearance Urine pH Ur Specific [place] Urine Protein Urine Glucose (UA) Urine Ketones Urine Blood Urine Nitrite Urine Bilirubin Urine Urobilinogen Ur Leukocyte Esterase Urine WBC (Auto) Urine RBC (Auto) U Hyaline Cast (Auto) U Epithel Cells (Auto) Urine Bacteria (Auto) Urine Comment Stl C. cayetanensis PCR Not Detected Stool Rotavirus A PCR Not Detected Stl Adenov F 40/41 PCR Not Detected Stool Astrovirus (PCR) Not Detected Stool Campylobacter PCR Not Detected Stl C. diff Tox B Gene Negative Cdiff Gene Stl C. diff [id number] NEGATIVE Stool Cryptosporidium PCR Not Detected Stl E.coli Shiga Tox PCR Not Detected Stl Enterotoxigenic E PCR Not Detected Stool EPEC (PCR) Not Detected Stool EAEC (PCR) Not Detected Stl E. histolytica PCR Not Detected Stool Giardia [place] PCR Not Detected Stool Salmonella PCR Not Detected Stool Sapovirus (PCR) Not Detected Stl P. shigelloides PCR Not Detected Stl Shigella/EIEC PCR Not Detected St Y.enterocolitica PCR Not Detected Stool Vibrio (PCR) Not Detected Stl Vibrio cholerae PCR Not Detected Stl Norovirus GI/GII PCR Not Detected 02/12/25 02/12/25 06:14 06:24 WBC 16.08 H RBC 4.04 L Hgb 12.0 Hct 34.4 L MCV 85.1 MCH 29.7 MCHC 34.9 RDW Std Deviation 43.0 RDW Coeff of [place] 13.8 Plt Count 167 MPV 10.6 Immature Gran % (Auto) 0.4 Neut % (Auto) 86.3 Lymph % (Auto) 8.3 [place] % (Auto) 4.3 Eos % (Auto) 0.6 Baso % (Auto) 0.1 Neut # (Auto) 13.88 H Lymph # (Auto) 1.33 [place] # (Auto) 0.69 H Eos # (Auto) 0.10 Baso # (Auto) 0.02 Immature Gran # (Auto) 0.06 Hypersegmented Neuts Toxic Granulation Sodium 137 Potassium 2.5 L* Chloride 100 Carbon Dioxide 31 Anion Gap 6 BUN 13 Creatinine 0.58 L Est Cr Clr Drug Dosing 151.2 eGFR 108.14 BUN/Creatinine Ratio 22.4 H Glucose 144 H POC Glucose 124 H Estimat Average Glucose 148 Hemoglobin A1c 6.8 H Lactate 1.0 Calcium 7.2 L D Phosphorus Magnesium 1.7 Total Bilirubin 0.7 Direct Bilirubin 0.2 AST 45 H ALT 32 Alkaline Phosphatase 47 Total Protein 5.9 L D Albumin 3.2 L Globulin Albumin/Globulin Ratio Lipase Urine Color Urine Appearance Urine pH Ur Specific [place] Urine Protein Urine Glucose (UA) Urine Ketones Urine Blood Urine Nitrite Urine Bilirubin Urine Urobilinogen Ur Leukocyte Esterase Urine WBC (Auto) Urine RBC (Auto) U Hyaline Cast (Auto) U Epithel Cells (Auto) Urine Bacteria (Auto) Urine Comment Stl C. cayetanensis PCR Stool Rotavirus A PCR Stl Adenov F 40/41 PCR Stool Astrovirus (PCR) Stool Campylobacter PCR Stl C. diff Tox B Gene Stl C. diff [id number] Stool Cryptosporidium PCR Stl E.coli Shiga Tox PCR Stl Enterotoxigenic E PCR Stool EPEC (PCR) Stool EAEC (PCR) Stl E. histolytica PCR Stool Giardia [place] PCR Stool Salmonella PCR Stool Sapovirus (PCR) Stl P. shigelloides PCR Stl Shigella/EIEC PCR St Y.enterocolitica PCR Stool Vibrio (PCR) Stl Vibrio cholerae PCR Stl Norovirus GI/GII PCR Diagnostic Findings Abdomen/Pelvis CT 02/11/25 17:25 EXAMINATION: CT of the abdomen and pelvis performed after the administration of IV contrast TECHNIQUE: Helical CT images from the lung bases through the symphysis pubis were obtained with contrast. Coronal and sagittal reformatted images were generated at a workstation for further assessment. Dose reduction techniques were achieved by using automatic exposure control and/or adjustment of mA and/or kV according to patient size and/or use of iterative reconstruction technique. COMPARISON: None HISTORY: Abdominal pain FINDINGS: Lower chest: No consolidation. No pleural effusion or pneumothorax. Liver: No suspicious liver lesions. Portal veins appear patent. Gallbladder: Cholecystectomy. Spleen: Normal size. Pancreas: No suspicious pancreatic lesions. The pancreatic duct is not dilated. Adrenal glands: No adrenal nodules. Kidneys: No hydronephrosis or obstructing renal stones. Bladder / Pelvic organs: Unremarkable. Bowel: No bowel obstruction. Diffuse mild distention and fluid filling of the large bowel. Inflammatory fat stranding is seen along the length of the descending colon. The appendix is unremarkable. Lymph nodes: No retroperitoneal, mesenteric, or pelvic lymphadenopathy. Peritoneum / Retroperitoneum: No free fluid or air within the abdomen. Vessels: No infrarenal aortic aneurysm. Bones and soft tissues: No suspicious lesion in the bones. IMPRESSION: Diffuse large bowel distention, and fluid filling, with inflammatory fat stranding about the descending colon seen, is compatible with colitis, and a diarrheal illness. Electronically signed by Nacho Epps 02-11-2025 8:37 PM PG Care Time/CCT Total # of Minutes Spent Total Time Spent with Patient: Total time spent is greater than 50% in coordination of care (as documented) at patient's floor/unit and/or counseling patient: Coding Level of Care Code 03714 INT INP/OBS CARE 2/55MIN Diagnoses Intractable abdominal pain R10.9 Diarrhea R19.7 Hypokalemia E87.6
[2025-02-12] MEDS: POTASSIUM PHOSPHATE 21 MMOL in SODIUM CHLORIDE 0.9% 500 ML IV ONE (08:51)
[2025-02-12] MEDS ORDERED: FAMOTIDINE 20MG IV PUSH 20 MG/5 ML SYR IV SCH (09:00)
[2025-02-12] MEDS: POTASSIUM PHOS 3 MMOL/1 ML INFUSION IV STA (09:43)
--- NOTE | 2025-02-12 09:58 | Hospitalist Progress Note ---
Date of Service February 12, 2025 Assessment & Plan (1) Intractable abdominal pain: Plan: 54-year-old female with past med history significant for type 2 diabetes, hypertension, obesity comes because of severe abdominal pain. Patient says since about a week she is having diarrhea and nausea and vomiting but today morning she started to have severe abdominal pain which prompted her to come to the ER. She had 1 episode of black stools during this time. She is having diffuse abdominal pain and she is writhing in pain. She says having on and off low-grade fevers. She recently was treated for sinusitis with Augmentin. As per epic she took Augmentin for 10 days and completed course on January 16. She also started metformin a month ago for diabetes. She is still having on and off headaches and dizziness and attributes to her sinusitis. Currently no runny nose or sore throat. No chest pain or shortness of breath. Hemodynamics are okay. Saturating okay on room air. #Severe Colitis #Acute Diarrhea -Since about 1 week have diarrhea and nausea and vomiting -Initial lactic is 2.4 and repeat is 1.4 after fluids -CT scan showing diffuse large bowel distention and fluid filling with inflammatory fat stranding about the descending colon compatible with colitis and a diarrheal illness -stool studies unremarkable so far, unclear etiology, likely viral/bacterial in nature, could be IBD related but strange onset of symptoms make less likely Plan: -Will follow stool studies and stool for C. difficile -continue Empiric Rocephin and Flagyl -increase dilaudid to 1mg IV and monitor response, once effective dose found will switch to PO -increased due to poor pain response to prior IV doses -start bentyl for cramping pain #Nausea/Vomiting #Hypokalemia #Hypocalcemia #Hypophosphatemia -replenish -recheck later today -continue zofran, add reglan for refractory nausea/vomiting #Hypertension -hold meds at is time #Diabetes -SSI #Chronically Elevated Transaminases -r/o GRAVES outpatient I spent a total of 50 minutes in direct patient care, including [id number] time with the patient and/or family, reviewing medical records, ordering and reviewing diagnostic tests, and coordinating care with other healthcare providers. This time includes: history taking, physical examination, medical decision making, counseling, ECG interpretation, imaging interpretation, lab interpretation, orders, and education, excluding time spent in the performance of separately billed services. Admission and Anticipated Discharge Date Admission Date: February 11, 2025 Subjective Patient seen and examined at bedside. Patient doing ok today, states she has a lot of abdominal pain. 2 components to pain, one nociceptive in nature and one cramping in nature. Dilaudid helps a bit with nociceptive pain, not with the cramping. Review of Systems Review of Systems: CONSTITUTIONAL: Patient denies fevers, chills, sweats and weight changes. EYES: Patient denies any visual symptoms. EARS, NOSE, AND THROAT: No difficulties with hearing. No symptoms of rhinitis or sore throat. CARDIOVASCULAR: Patient denies chest pains, palpitations, orthopnea and paroxysmal nocturnal dyspnea. RESPIRATORY: No dyspnea on exertion, no wheezing or cough. GI: abdominal pain, cramping : No urinary hesitancy or dribbling. No nocturia or urinary frequency. No abnormal urethral discharge. MUSCULOSKELETAL: No myalgias or arthralgias. NEUROLOGIC: No chronic headaches, no seizures. Patient denies numbness, tingling or weakness. PSYCHIATRIC: Patient denies problems with mood disturbance. No problems with anxiety. ENDOCRINE: No excessive urination or excessive thirst. DERMATOLOGIC: Patient denies any rashes or skin changes. Physical Exam Physical Exam: Gen: A&O 3 NAD HEENT: NCAT, EOMI, not icteric. External ears normal. No rhinorrhea. Moist mucous membranes. Neck: Supple, full range of motion, no observable masses, No meningeal sign. Lungs: No Respiratory distress. CV: RRR, no edema. Abdomen: mild tenderness to palpation in periumbilical and suprapubic region, mild in LLQ MSK: No joint swelling, no redness. Skin: No rashes, petechiae, lesions. Normal color per patient. Neuro: Normal Gait, Grossly intact. Psych: Appropriate for situation. Results & Data Results & Data Vital Signs (Past 12 Hours) Vital Signs Temp Pulse Pulse Resp BP BP Pulse Ox 02/12/25 07:20 37.1 C 76 17 135/78 97 02/12/25 03:19 36.9 C 69 24 123/81 98 02/12/25 01:52 69 02/11/25 23:30 37 C 101 H 18 142/87 H 96 02/11/25 23:08 81 18 186/83 H 99 02/11/25 22:55 69 144/78 H 02/11/25 22:54 86 L 02/11/25 22:37 73 195/90 H 02/11/25 22:30 68 22 195/90 H 95 02/11/25 22:23 74 20 202/96 H 98 O2 Del Method O2 Flow Rate 02/12/25 07:20 Room Air 02/12/25 03:19 Room Air 02/12/25 01:52 02/11/25 23:30 Room Air 02/11/25 23:08 Nasal Cannula 2 02/11/25 22:55 02/11/25 22:54 Nasal Cannula 0 02/11/25 22:37 02/11/25 22:30 Room Air 02/11/25 22:23 Room Air Laboratory Results -personally reviewed, elevated leukocytosis consistent with severe colitis, K of 2.5/phos of 2.1/calcium of 7.2 consistent with severe nausea/vomiting Medications Administered Hydromorphone HCl (Hydromorphone Inj 1 Mg/Ml Syringe) 1 mg IV Q3H PRN PRN Reason: Mod-Sev Pain (Scale 4-10) Stop: 02/25/25 23:31 Last Admin: 02/12/25 08:46 Dose: 1 mg Documented By: AM Ceftriaxone Sodium (Rocephin) 2,000 mg in 50 mls @ 100 mls/hr IV Q24H [facility] Stop: 02/22/25 00:00 Last Infusion: 02/12/25 01:28 Dose: Infused Documented By: Admin: 02/12/25 00:57 Dose: 100 mls/hr Documented By: CESAR Potassium Chloride 40 meq/ (Sodium Chloride) 1,020 mls @ 125 mls/hr IV .Q8H10M [facility] Stop: 02/14/25 23:31 Last Admin: 02/12/25 09:43 Dose: 125 mls/hr Documented By: Infusion: 02/12/25 08:42 Dose: Infused Documented By: Admin: 02/12/25 00:32 Dose: 125 mls/hr Documented By: CESAR Metronidazole (Flagyl) 500 mg in 100 mls @ 100 mls/hr IV Q8H [facility]; Protocol Stop: 02/22/25 00:59 Last Infusion: 02/12/25 09:47 Dose: Infused Documented By: Infusion: 02/12/25 08:50 Dose: 100 mls/hr Documented By: Infusion: 02/12/25 08:08 Dose: 0 mls/hr Documented By: Admin: 02/12/25 07:58 Dose: 100 mls/hr Documented By: Infusion: 02/12/25 02:33 Dose: Infused Documented By: Admin: 02/12/25 01:33 Dose: 100 mls/hr Documented By: CESAR Magnesium Sulfate/Dextrose (Magnesium Sulfate / D5w) 1 gm in 100 mls @ 50 mls/hr IV Q2H [facility] Stop: 02/12/25 11:14 Last Admin: 02/12/25 09:30 Dose: 50 mls/hr Documented By: Infusion: 02/12/25 09:30 Dose: Infused Documented By: Admin: 02/12/25 07:52 Dose: 50 mls/hr Documented By: FESTUS Potassium Phosphate 21 mmol/ (Sodium Chloride) 507 mls @ 88 mls/hr IV ONE ONE Stop: 02/12/25 13:15 Last Admin: 02/12/25 08:51 Dose: 88 mls/hr Documented By: FESTUS Insulin Aspart (Insulin Aspart Per Unit Charge) 0 units SC Q6 [facility] Stop: 03/14/25 00:00 Last Admin: 02/12/25 06:26 Dose: Not Given Documented By: Admin: 02/12/25 00:56 Dose: 1 units Documented By: CESAR Co-signed By: [facility]
[2025-02-12] MEDS: LACTATED RINGER'S 1,000 ML IV SCH (10:00)
[2025-02-12] MEDS ORDERED: METOCLOPRAMIDE HCL INJ 5 MG/ML 2 ML VIAL IV PRN (10:05)
[2025-02-12] MEDS: DICYCLOMINE HCL 10 MG CAP PO SCH (10:10)
[2025-02-12] MEDS ORDERED: DICYCLOMINE HCL 10 MG CAP PO SCH (12:00)
--- NOTE | 2025-02-12 12:14 | Electrocardiogram Report ---
Test Reason : Blood Pressure : */* mmHG Vent. Rate : 69 BPM Atrial Rate : 69 BPM P-R Int : 168 ms QRS Dur : 66 ms QT Int : 446 ms P-R-T Axes : 80 0 14 degrees QTcB Int : 477 ms Normal sinus rhythm Nonspecific ST abnormality Abnormal ECG When compared with ECG of 23-Nov-2020 07:12, Vent. rate has decreased by 37 bpm Nonspecific T wave abnormality no longer evident in Anterior leads Confirmed by Ezra Katz ([id number]) on 02/12/2025 12:14:21 PM Referred By: REFERRED SELF Confirmed By: Ezra Katz
[2025-02-12 14:45] LABS: Anion Gap 5.0 (3-11); Blood Urea Nitrogen 9.0 mg/dl (6-23); Calcium 7.5 mg/dl (8.6-10.3); Carbon Dioxide 28.0 mmol/L (21-32); Chloride 102.0 mmol/L (98-107); Creatinine Clr Calc Pharmacy 146.2 ml/min; Glucose 132.0 mg/dl (70-99(Fasting)); Magnesium 2.2 mg/dl (1.7-2.4); Potassium 3.0 mmol/L (3.5-5.1); Sodium 135.0 mmol/L (136-145)
[2025-02-12] MEDS: POTASSIUM CHLORIDE CRTAB 20 MEQ TABCR PO STA (15:20)
[2025-02-13] MEDS: ONDANSETRON INJ 2 MG/ML 2 ML VIAL IV PRN (01:01)
[2025-02-13] MEDS: ACETAMINOPHEN 1,000 MG/100 ML VIAL IV STA (01:32)
[2025-02-13] MEDS: OPTIRAY 320 125ml IV ONE (03:04)
--- NOTE | 2025-02-13 04:23 | CT Scan Report ---
EXAM: CT angio abdomen pelvis w con CLINICAL HISTORY: severe abdominal pain TECHNIQUE: Contrast enhanced thin slice CT angiography scan of the abdominal aorta was performed with intravenous contrast. Angiographic images were processed, 3D MIP images were acquired for interpretation. Contiguous axial images were obtained. Reformatted coronal and sagittal images were also reviewed. If IV contrast material had not been administered, the likelihood of detecting abnormalities relevant to the patients condition would have been substantially decreased. CT scan was performed according to ALARA (as low as reasonable achievable). COMPARISON: 17:48:38 [employer]. FINDINGS: Mild bilateral pleural effusion with basal subsegmental collapse of both lower lobes are seen. Diffuse mucosal edema with adjacent fat stranding is noted involving left half of transverse colon, splenic flexure and descending colon - suggestive of colitis changes. Minimal free fluid noted involving pelvis. Mild perihepatic fluid present. Abdominal aorta is normal in course, calibre and opacification. Origin of coeliac artery, superior mesenteric artery , bilateral main renal and lumbar arteries are normal with no hemodynamically significant ostial stenosis noted. Bilateral common, external and internal iliac arteries are normal in course, caliber and opacification. Solid abdominal organs including liver, spleen, pancreas and bilateral kidneys reveal no significant abnormality. Rest of bowel loops are grossly unremarkable. No evidence of ascites. IMPRESSION: Mild bilateral pleural effusion with basal subsegmental collapse of both lower lobes are seen.-new finding. Diffuse mucosal edema with adjacent fat stranding is noted involving left half of transverse colon, splenic flexure and descending colon - suggestive of colitis changes.- significant increase in wall thickening as compared to prior. Minimal free fluid noted involving pelvis and mild perihepatic fluid-new finding. No evidence of any vascular thrombosis/compromise. Electronically signed by Kota Morillo 02-13-2025 04:23 AM
[2025-02-13 07:01] LABS: Alanine Aminotransferase 28.0 U/L (7-52); Albumin Globulin Ratio 1.1 (0.9-2); Alkaline Phosphatase 49.0 U/L (34-104); Anion Gap 5.0 (3-11); Bilirubin,Total 0.4 mg/dl (0.2-1.0); Blood Urea Nitrogen 5.0 mg/dl (6-23); Calcium 7.4 mg/dl (8.6-10.3); Carbon Dioxide 25.0 mmol/L (21-32); Chloride 106.0 mmol/L (98-107); Creatinine Clr Calc Pharmacy 162.6 ml/min; Globulin 2.7 gm/dl (2.5-4.0); Glucose 118.0 mg/dl (70-99(Fasting)); Magnesium 1.9 mg/dl (1.7-2.4); Potassium 3.5 mmol/L (3.5-5.1); Sodium 136.0 mmol/L (136-145); Total Protein 5.8 gm/dl (6.0-8.3)
[2025-02-13] MEDS ORDERED: POTASSIUM PHOS 3 MMOL/1 ML INFUSION IV STA (07:32)
--- NOTE | 2025-02-13 07:51 | Gastroenterology Progress Note ---
Date of Service February 13, 2025 Assessment & Plan (1) Diarrhea: Plan: Despite findings on CTA patient is clinically improving and has a benign abdomen no fever lactate level normal. No vascular abnormalities noted to suggest ischemic colitis. In light of clinical improvement would continue present treatment with antibiotics. Continue close monitoring of clinical signs and symptoms. (2) Intractable abdominal pain: Admission and Anticipated Discharge Date Admission Date: February 11, 2025 Subjective Clinically improving less frequent bowel movements less abdominal pain. No shortness of breath no chest pain no fever Physical Exam Physical Exam: No acute distress Respiratory rate regular Cardiac rhythm regular Abdomen soft nontender no rebound no guarding Results & Data Results & Data Vital Signs (Past 12 Hours) Vital Signs Temp Pulse Pulse Resp BP Pulse Ox O2 Del Method 02/13/25 07:20 36.7 C 69 19 143/80 H 100 Room Air 02/13/25 05:30 65 22 132/84 96 Room Air 02/13/25 03:11 36.6 C 70 22 108/72 96 Room Air 02/13/25 02:05 75 02/12/25 23:02 37.0 C 74 16 129/81 98 Room Air Diagnostic Findings Abdomen/Pelvis CTA 02/13/25 01:50 EXAM: CT angio abdomen pelvis w con CLINICAL HISTORY: severe abdominal pain TECHNIQUE: Contrast enhanced thin slice CT angiography scan of the abdominal aorta was performed with intravenous contrast. Angiographic images were processed, 3D MIP images were acquired for interpretation. Contiguous axial images were obtained. Reformatted coronal and sagittal images were also reviewed. If IV contrast material had not been administered, the likelihood of detecting abnormalities relevant to the patients condition would have been substantially decreased. CT scan was performed according to ALARA (as low as reasonable achievable). COMPARISON: 17:48:38 [employer]. FINDINGS: Mild bilateral pleural effusion with basal subsegmental collapse of both lower lobes are seen. Diffuse mucosal edema with adjacent fat stranding is noted involving left half of transverse colon, splenic flexure and descending colon - suggestive of colitis changes. Minimal free fluid noted involving pelvis. Mild perihepatic fluid present. Abdominal aorta is normal in course, calibre and opacification. Origin of coeliac artery, superior mesenteric artery , bilateral main renal and lumbar arteries are normal with no hemodynamically significant ostial stenosis noted. Bilateral common, external and internal iliac arteries are normal in course, caliber and opacification. Solid abdominal organs including liver, spleen, pancreas and bilateral kidneys reveal no significant abnormality. Rest of bowel loops are grossly unremarkable. No evidence of ascites. IMPRESSION: Mild bilateral pleural effusion with basal subsegmental collapse of both lower lobes are seen.-new finding. Diffuse mucosal edema with adjacent fat stranding is noted involving left half of transverse colon, splenic flexure and descending colon - suggestive of colitis changes.- significant increase in wall thickening as compared to prior. Minimal free fluid noted involving pelvis and mild perihepatic fluid-new finding. No evidence of any vascular thrombosis/compromise. Electronically signed by Kota Morillo 02-13-2025 04:23 AM PG Care Time/CCT Total # of Minutes Spent Total Time Spent with Patient: Total time spent is greater than 50% in coordination of care (as documented) at patient's floor/unit and/or counseling patient: Coding Level of Care Code 48129 SUB INP/OBS CARE 2/35MIN Diagnoses Diarrhea R19.7 Intractable abdominal pain R10.9
[2025-02-13] MEDS: CALCIUM GLUCONATE 1,000 MG/60 ML BAG IV STA (08:26)
[2025-02-13] MEDS: POTASSIUM CHLORIDE 20 MEQ in LACTATED RINGER'S 1,000 ML IV SCH (08:34)
[2025-02-13] MEDS: POTASSIUM PHOSPHATE 21 MMOL in SODIUM CHLORIDE 0.9% 500 ML IV ONE (08:44)
[2025-02-13 08:48] LABS: Hematocrit (blood only) 32.3 % (37.0-47.0); Hemoglobin 10.4 g/dl (12.0-16.0); Immature Granulocytes # (auto) 0.06 K/uL (0.01-0.20); Immature Granulocytes % (auto) 0.5 %; Mean Corpuscular Hemoglobin 28.7 pg (25.0-34.0); Mean Corpuscular Volume 89.0 fL (80.0-100.0); Platelet Count 145 K/uL (130-400); RDW Standard Deviation 47.8 fL (36.4-46.3); Red Blood Count 3.63 M/uL (4.20-5.40); White Blood Count 13.03 K/ul (4.8-10.8)
--- NOTE | 2025-02-13 11:22 | Hospitalist Progress Note ---
Date of Service February 13, 2025 Assessment & Plan (1) Intractable abdominal pain: Plan: 54-year-old female with past med history significant for type 2 diabetes, hypertension, obesity comes because of severe abdominal pain. Patient says since about a week she is having diarrhea and nausea and vomiting but today morning she started to have severe abdominal pain which prompted her to come to the ER. She had 1 episode of black stools during this time. She is having diffuse abdominal pain and she is writhing in pain. She says having on and off low-grade fevers. She recently was treated for sinusitis with Augmentin. As per epic she took Augmentin for 10 days and completed course on January 16. She also started metformin a month ago for diabetes. She is still having on and off headaches and dizziness and attributes to her sinusitis. Currently no runny nose or sore throat. No chest pain or shortness of breath. Hemodynamics are okay. Saturating okay on room air. #Severe Colitis #Acute Diarrhea -Since about 1 week have diarrhea and nausea and vomiting -Initial lactic is 2.4 and repeat is 1.4 after fluids -CT scan showing diffuse large bowel distention and fluid filling with inflammatory fat stranding about the descending colon compatible with colitis and a diarrheal illness -stool studies unremarkable so far, unclear etiology, likely viral/bacterial in nature, could be IBD related but strange onset of symptoms make less likely -imaging studies done overnight for worsening pain shows ongoing colitis -appears clinically improved this morning Plan: -Will follow stool studies -continue Empiric Rocephin and Flagyl -continue 4mg PO dilaudid with 1mg IV breakthrough -stop bentyl, trial antispasmodic tizanidine, if ineffective will trial pregablin for neuropathic component of pain, should also help with cramping as well -GI consulted, appreciate recs -continue clear liquid diet #Nausea/Vomiting #Hypokalemia #Hypocalcemia #Hypophosphatemia -replenish -recheck later today -continue zofran, add reglan for refractory nausea/vomiting #Hypertension -hold meds at is time #Diabetes -SSI #Chronically Elevated Transaminases -r/o GRAVES outpatient I spent a total of 45 minutes in direct patient care, including [id number] time with the patient and/or family, reviewing medical records, ordering and r eviewing diagnostic tests, and coordinating care with other healthcare providers. This time includes: history taking, physical examination, medical decision making, counseling, ECG interpretation, imaging interpretation, lab interpretation, orders, and education, excluding time spent in the performance of separately billed services. Admission and Anticipated Discharge Date Admission Date: February 11, 2025 Subjective Patient seen and examined at bedside. Patient doing ok today. Had a very good day yesterday, pain worsened overnight. States pain is worst in her lower abdomen. The dull ache component of pain is well managed with current doses of dilaudid. Has shooting pain and cramping pain not well controlled on current regiment. Review of Systems Review of Systems: CONSTITUTIONAL: Patient denies fevers, chills, sweats and weight changes. EYES: Patient denies any visual symptoms. EARS, NOSE, AND THROAT: No difficulties with hearing. No symptoms of rhinitis or sore throat. CARDIOVASCULAR: Patient denies chest pains, palpitations, orthopnea and paroxysmal nocturnal dyspnea. RESPIRATORY: No dyspnea on exertion, no wheezing or cough. GI: abdominal pain, cramping : No urinary hesitancy or dribbling. No nocturia or urinary frequency. No abnormal urethral discharge. MUSCULOSKELETAL: No myalgias or arthralgias. NEUROLOGIC: No chronic headaches, no seizures. Patient denies numbness, tingling or weakness. PSYCHIATRIC: Patient denies problems with mood disturbance. No problems with anxiety. ENDOCRINE: No excessive urination or excessive thirst. DERMATOLOGIC: Patient denies any rashes or skin changes. Physical Exam Physical Exam: Gen: A&O 3 NAD HEENT: NCAT, EOMI, not icteric. External ears normal. No rhinorrhea. Moist mucous membranes. Neck: Supple, full range of motion, no observable masses, No meningeal sign. Lungs: No Respiratory distress. CV: RRR, no edema. Abdomen: mild tenderness to palpation in periumbilical and suprapubic region, mild in LLQ, improved from yesterday MSK: No joint swelling, no redness. Skin: No rashes, petechiae, lesions. Normal color per patient. Neuro: Normal Gait, Grossly intact. Psych: Appropriate for situation. Results & Data Results & Data Vital Signs (Past 12 Hours) Vital Signs Temp Pulse Pulse Resp BP Pulse Ox O2 Del Method 02/13/25 10:46 36.8 C 79 18 166/94 H 98 Room Air 02/13/25 10:43 63 02/13/25 10:12 Room Air 02/13/25 07:20 36.7 C 69 19 143/80 H 100 Room Air 02/13/25 05:30 65 22 132/84 96 Room Air 02/13/25 03:11 36.6 C 70 22 108/72 96 Room Air 02/13/25 02:05 75 Laboratory Results -personally reviewed, calcium of 7.4 repleted, improving electrolytes overall, phos of 1.8 repleted Medications Administered Hydromorphone HCl (Hydromorphone Hcl 4 Mg Tab) 4 mg PO Q3HWA PRN PRN Reason: Severe Pain (Scale 7, 8, 9,10) Stop: 02/26/25 12:13 Last Admin: 02/13/25 08:37 Dose: 4 mg Documented By: Admin: 02/13/25 05:25 Dose: 4 mg Documented By: Admin: 02/13/25 00:55 Dose: 4 mg Documented By: Admin: 02/12/25 21:54 Dose: 4 mg Documented By: Admin: 02/12/25 18:11 Dose: 4 mg Documented By: Admin: 02/12/25 12:27 Dose: 4 mg Documented By: AM Hydromorphone HCl (Hydromorphone Inj 1 Mg/Ml Syringe) 1 mg IV Q3H PRN PRN Reason: Breakthrough Pain Stop: 02/25/25 23:31 Last Admin: 02/13/25 09:37 Dose: 1 mg Documented By: Admin: 02/13/25 03:31 Dose: 1 mg Documented By: Admin: 02/12/25 14:31 Dose: 1 mg Documented By: AM Ceftriaxone Sodium (Rocephin) 2,000 mg in 50 mls @ 100 mls/hr IV Q24H [facility] Stop: 02/22/25 00:00 Last Infusion: 02/13/25 00:40 Dose: Infused Documented By: Admin: 02/13/25 00:10 Dose: 100 mls/hr Documented By: Infusion: 02/12/25 01:28 Dose: Infused Documented By: Admin: 02/12/25 00:57 Dose: 100 mls/hr Documented By: CESAR Metronidazole (Flagyl) 500 mg in 100 mls @ 100 mls/hr IV Q8H [facility]; Protocol Stop: 02/22/25 00:59 Last Infusion: 02/13/25 09:34 Dose: Infused Documented By: AAKiran Admin: 02/13/25 08:34 Dose: 100 mls/hr Documented By: Infusion: 02/13/25 02:01 Dose: Infused Documented By: Admin: 02/13/25 00:57 Dose: 100 mls/hr Documented By: Infusion: 02/12/25 18:05 Dose: Infused Documented By: Admin: 02/12/25 16:39 Dose: 100 mls/hr Documented By: Infusion: 02/12/25 09:47 Dose: Infused Documented By: Infusion: 02/12/25 08:50 Dose: 100 mls/hr Documented By: Infusion: 02/12/25 08:08 Dose: 0 mls/hr Documented By: Admin: 02/12/25 07:58 Dose: 100 mls/hr Documented By: Infusion: 02/12/25 02:33 Dose: Infused Documented By: Admin: 02/12/25 01:33 Dose: 100 mls/hr Documented By: CESAR Potassium Chloride 20 meq/ (Lactated Ringer's) 1,010 mls @ 80 mls/hr IV .[id number] [facility] Stop: 02/16/25 07:29 Last Admin: 02/13/25 08:34 Dose: 80 mls/hr Documented By: NOHELIA Potassium Phosphate 21 mmol/ (Sodium Chloride) 507 mls @ 88 mls/hr IV ONE ONE Stop: 02/13/25 13:30 Last Admin: 02/13/25 08:44 Dose: 88 mls/hr Documented By: NOHELIA Insulin Aspart (Insulin Aspart Per Unit Charge) 0 units SC ACHS [facility] Stop: 03/14/25 17:14 Last Admin: 02/13/25 08:15 Dose: Not Given Documented By: Admin: 02/12/25 21:02 Dose: Not Given Documented By: Admin: 02/12/25 18:06 Dose: Not Given Documented By: AM Ondansetron HCl (Ondansetron Inj 2 Mg/Ml 2 Ml Vial) 4 mg IV Q6H PRN PRN Reason: Nausea Stop: 03/13/25 23:31 Last Admin: 02/13/25 01:01 Dose: 4 mg Documented By: CESAR Pantoprazole Sodium (Pantoprazole 40 Mg Tab) 40 mg PO [facility] Stop: 03/15/25 10:14 Last Admin: 02/13/25 11:03 Dose: 40 mg Documented By: NOHELIA
[2025-02-14 03:24] VITALS: RESP 18
[2025-02-14 06:22] LABS: Hematocrit (blood only) 34.3 % (37.0-47.0); Hemoglobin 11.2 g/dl (12.0-16.0); Mean Corpuscular Hemoglobin 28.8 pg (25.0-34.0); Mean Corpuscular Volume 88.2 fL (80.0-100.0); Platelet Count 153 K/uL (130-400); RDW Standard Deviation 47.2 fL (36.4-46.3); Red Blood Count 3.89 M/uL (4.20-5.40); White Blood Count 11.08 K/ul (4.8-10.8)
[2025-02-14 06:44] LABS: Alanine Aminotransferase 27.0 U/L (7-52); Albumin Globulin Ratio 1.1 (0.9-2); Alkaline Phosphatase 67.0 U/L (34-104); Anion Gap 8.0 (3-11); Bilirubin,Total 0.5 mg/dl (0.2-1.0); Blood Urea Nitrogen 3.0 mg/dl (6-23); Calcium 8.3 mg/dl (8.6-10.3); Carbon Dioxide 24.0 mmol/L (21-32); Chloride 104.0 mmol/L (98-107); Creatinine Clr Calc Pharmacy 151.3 ml/min; Globulin 3.0 gm/dl (2.5-4.0); Glucose 109.0 mg/dl (70-99(Fasting)); Magnesium 1.7 mg/dl (1.7-2.4); Potassium 3.7 mmol/L (3.5-5.1); Sodium 136.0 mmol/L (136-145); Total Protein 6.4 gm/dl (6.0-8.3)
[2025-02-14] MEDS: POTASSIUM PHOSPHATE 15 MMOL in SODIUM CHLORIDE 0.9% 250 ML IV ONE (10:10)
[2025-02-14] MEDS: POTASSIUM PHOS 3 MMOL/1 ML INFUSION IV STA (10:14)
[2025-02-14 11:18] VITALS: BP 155/90; PULSE 66; TEMP 98.6; O2SAT 99
--- NOTE | 2025-02-14 12:13 | Gastroenterology Progress Note ---
Date of Service February 14, 2025 Assessment & Plan (1) Colitis: Plan: Symptomatically improved. Concern for infectious vs inflammatory etiology. Discussed low fiber diet for now, avoidance of fatty foods and potentially dairy products. Plan for colonoscopy in 8 weeks. Our staff will arrange this. Admission and Anticipated Discharge Date Admission Date: February 11, 2025 Supervising Physician Co-Signing Physician Notes I saw and examined this patient with our nurse practitioner and agree with her assessment and plan. Patient discharged prior to my seeing her. Plan as per physician environmental services assistant's note. Subjective Patient is a 54 yo female with diarrhea and a nonspecific colitis. Despite normal stool studies, she did improve with antibiotic treatment. She is feeling well at the time of my visit and tells me her hospitalist is discharging her today. Review of Systems Gastrointestinal: + abdominal pain (improved significantly ); no blood in stools Physical Exam Constitutional: well developed Respiratory: normal respiratory effort Cardiovascular: Rate/Rhythm: regular rate Gastrointestinal (Abdomen): normal bowel sounds, soft, nontender, no hepatosplenomegaly Psychiatric: Orientation: alert and oriented x 3 Results & Data Results & Data Vital Signs (Past 12 Hours) Vital Signs Temp Pulse Resp BP Pulse Ox O2 Del Method 02/14/25 11:17 37.0 C 66 18 155/90 H 99 Room Air 02/14/25 07:40 75 18 173/91 H 98 Room Air 02/14/25 02:57 36.6 C 67 18 165/80 H 100 Room Air PG Care Time/CCT Total # of Minutes Spent Total Time Spent with Patient: Total time spent is greater than 50% in coordination of care (as documented) at patient's floor/unit and/or counseling patient: Coding Level of Care Code 49009 SUB INP/OBS CARE 3/50MIN Diagnoses Colitis K52.9
--- NOTE | 2025-02-14 13:44 | Discharge Summary ---
Discharge Summary Date of Service February 14, 2025 Principal Dx & Hospital Course #1 = Principal Diagnosis (1) Intractable abdominal pain: 54-year-old female with past med history significant for type 2 diabetes, hypertension, obesity comes because of severe abdominal pain. Patient says since about a week she is having diarrhea and nausea and vomiting but today morning she started to have severe abdominal pain which prompted her to come to the ER. She had 1 episode of black stools during this time. She is having diffuse abdominal pain and she is writhing in pain. She says having on and off low-grade fevers. She recently was treated for sinusitis with Augmentin. As per epic she took Augmentin for 10 days and completed course on January 16. She also started metformin a month ago for diabetes. She is still having on and off headaches and dizziness and attributes to her sinusitis. Currently no runny nose or sore throat. No chest pain or shortness of breath. Hemodynamics are okay. Saturating okay on room air. #Severe Colitis #Acute Diarrhea -Since about 1 week have diarrhea and nausea and vomiting -Initial lactic is 2.4 and repeat is 1.4 after fluids -CT scan showing diffuse large bowel distention and fluid filling with inflammatory fat stranding about the descending colon compatible with colitis and a diarrheal illness -stool studies unremarkable so far, unclear etiology, likely viral/bacterial in nature, could be IBD related but strange onset of symptoms make less likely -imaging studies done overnight for worsening pain shows ongoing colitis -appears clinically improved this morning Plan: -Will follow stool studies -continue Empiric Rocephin and Flagyl -continue 4mg PO dilaudid with 1mg IV breakthrough -stop bentyl, trial antispasmodic tizanidine, if ineffective will trial pregablin for neuropathic component of pain, should also help with cramping as well -GI consulted, appreciate recs -continue clear liquid diet #Nausea/Vomiting #Hypokalemia #Hypocalcemia #Hypophosphatemia -replenish -recheck later today -continue zofran, add reglan for refractory nausea/vomiting #Hypertension -hold meds at is time #Diabetes -SSI #Chronically Elevated Transaminases -r/o GRAVES outpatient Notes For Next Care Provider 54-year-old female with past med history significant for type 2 diabetes, hypertension, obesity comes because of severe abdominal pain. In the ED noted to have colitis, admitted to medicine. On medicine, GI consulted, recommended abx and fluids. Pain control titrated to effect. Started tizanidine for lower abdominal spasms. Colitis symptoms improved. On 02/14/2025 medically stable for discharge home, tolerating full diet and prn med use decreasing. To do: [ ] f/u colonoscopy outpatient [ ] f/u with GI Medication Changes From Visit -see below Admission HPI Per Admitting Provider 54-year-old female with past med history significant for type 2 diabetes, hypertension, obesity comes because of severe abdominal pain. Patient says since about a week she is having diarrhea and nausea and vomiting but today morning she started to have severe abdominal pain which prompted her to come to the ER. She had 1 episode of black stools during this time. She is having diffuse abdominal pain and she is writhing in pain. She says having on and off low-grade fevers. She recently was treated for sinusitis with Augmentin. As per [facility] she took Augmentin for 10 days and completed course on January 16. She also started metformin a month ago for diabetes. She is still having on and off headaches and dizziness and attributes to her sinusitis. Currently no runny nose or sore throat. No chest pain or shortness of breath. Hemodynamics are okay. Saturating okay on room air. Past medical history. As mentioned above. Past surgical history. Ovarian cyst remote. Sister remote from both head and back. Adenoidectomy. Tonsillectomy. Cholecystectomy. Repair of nasal septum. Sinus surgery. Social history. No smoking. Alcohol once or twice a week per [facility]. No drug use. Family history. Maternal grandfather had brain cancer at age 60. Maternal grandmother had breast cancer age 60s. Brother had colitis and had 2 third colon removed. Mother had depression. Discharge Exam Gen: A&O 3 NAD HEENT: NCAT, EOMI, not icteric. External ears normal. No rhinorrhea. Moist mucous membranes. Neck: Supple, full range of motion, no observable masses, No meningeal sign. Lungs: No Respiratory distress. CV: RRR, no edema. Abdomen: mild tenderness to palpation in periumbilical and suprapubic region, mild in LLQ, improved from yesterday MSK: No joint swelling, no redness. Skin: No rashes, petechiae, lesions. Normal color per patient. Neuro: Normal Gait, Grossly intact. Psych: Appropriate for situation. Updated Medication List Medication Instructions Recorded Confirmed Type metformin 500 mg tablet,extended 500 mg PO DAILY 02/11/25 02/11/25 History release 24 hr triamterene 37.5 1 cap PO DAILY 02/11/25 02/11/25 History mg-hydrochlorothiazide 25 mg capsule amoxicillin 500 mg-potassium 1 tab PO BID 3 days #6 tabs 02/14/25 Rx clavulanate 125 mg tablet (Augmentin) hydromorphone 4 mg tablet 4 mg PO Q3HWA PRN pain 5 days #20 02/14/25 Rx tabs metronidazole 500 mg tablet 500 mg PO Q8H 3 days #9 tabs 02/14/25 Rx ondansetron 4 mg disintegrating 4 mg PO Q8H PRN nausea and 02/14/25 Rx tablet vomiting 5 days #14 tabs pantoprazole 40 mg tablet,delayed 40 mg PO QAM #30 tabs 02/14/25 Rx release tizanidine 4 mg tablet 2 mg (1/2 x 4 mg) PO TID 7 days 02/14/25 Rx #11 tabs Hospital Stay Data Consultations 02/11/25 20:47 ED Decision to Admit Stat 02/11/25 23:32 Consult Gastroenterology Routine Diagnostic Imagining Performed 02/11/25 17:25 CT Abd and Pelvis [CT abd pelvis IV con only] Stat 02/13/25 01:50 CTA abdomen pelvis w con [CT angio abdomen pelvis w con] Stat Pending Results Patient Have Any Pending Studies at Discharge: No Discharge Instructions Given to Patient (Per Discharging Provider) 1. Follow up with GI (for colonoscopy) and PCP. 2. Take medications as prescribed. 3. Stay hydrated and eat soft foods for the next few days. Total Time Total Time Spent Total Time Spent (In Minutes): I spent a total of 35 minutes in direct patient care, including [id number] time with the patient and/or family, reviewing medical records, ordering and reviewing diagnostic tests, and coordinating care with other healthcare providers. This time includes: history taking, physical examination, medical decision making, counseling, ECG interpretation, imaging interpretation, lab interpretation, orders, and education, excluding time spent in the performance of separately billed services.
== END 2025-02-14 12:53 | disposition home or self-care (01) | DRG 392 ==
LOC: ED 16:58 → 2S 21:49

== ENCOUNTER 2025-06-15 05:51 | Inpatient (IN) ==
[2025-06-15] MEDS: ONDANSETRON INJ 2 MG/ML 2 ML VIAL IV STA ×2 (06:07→09:46)
[2025-06-15] MEDS: SODIUM CHLORIDE 0.9% 500 ML IV SCH (06:08)
--- NOTE | 2025-06-15 06:21 | Emergency Department Note ---
Impression & Plan Weakness, Hypomagnesemia, Hypokalemia, Vomiting and diarrhea, Acute dehydration, Acute hyponatremia ED Provider Note NAME: RAJIV REYES AGE: 54 SEX: F : 1970 ARRIVES VIA: Walk-In INFORMANT: [Patient][significant other] ED PROVIDER(S): [Itz Jackson MD] CHIEF COMPLAINT: Vertigo HISTORY OF PRESENT ILLNESS: The patient is a 54-year-old female with a history of vertigo. She has been ill for 6 days with vertigo, vomiting, diarrhea. Things worsened overnight and, she could not stay out of the bathroom. She has had no intake and is very thirsty and actually, was weak and fell although, she suffered no injury. 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 The patient states her mouth is very dry, she is asking for something to wet the mouth. There is no chest pain, there is no abdominal pain. She is not on blood thinning agents. As per nursing staff, the blood sugar was 323, the patient states that she was only told that she was prediabetic. PMHx/PSHx/Social Hx: See Below PHYSICAL EXAM: GENERAL: Patient is in no acute distress. Very anxious and shaky. Seems quite jittery. HEENT: No acute trauma, normocephalic atraumatic, mucous membranes markedly dry, no nasal congestion. No obvious nystagmus, pupils equal round and reactive to light. NECK: No stridor, no adenopathy, no meningismus, trachea is midline. LUNGS: Clear to auscultation bilaterally, no wheeze, no rhonchi, breath sounds equal. HEART: Irregular rhythm, normal rate, no obvious murmur. ABDOMEN: Soft, nontender, no peritonitis. EXTREMITIES: No cyanosis, full range of motion of all the joints without pain or difficulty. NEUROLOGIC: Moves all extremities, quite jittery and shaky. SKIN: No jaundice, no diaphoresis. DIFFERENTIAL DIAGNOSIS: DKA, dehydration, electrolyte imbalance, UTI, stroke, vertigo, renal or liver failure, among others. EMERGENCY DEPARTMENT PROCEDURES: MEDICAL DECISION MAKING: There is a mild leukocytosis, this could be consistent with infection or just the stress of her presentation. There is a normal hemoglobin and platelet count. No bandemia. VBG did not show any acidosis, in fact, there was an alkalosis present with a low pCO2. Electrolyte abnormalities were present, the sodium was 119, potassium was 1.9, magnesium was 0.6. Glucose was high at 298. Calcium was low at 7.9. There were some liver enzyme elevations, the bilirubin was 2.3, although the ALT and alk phos were normal. The patient appeared to be in a euthyroid state. ECG showed a sinus rhythm with frequent PVCs, no obvious ST elevation. Cardiac enzyme testing x 1 was slightly elevated. This troponin elevation could be secondary cardiac injury or mismatch from her current condition. COVID, influenza and RSV test were negative. Urinalysis showed dehydration, no obvious infection. Chest x-ray did not show pneumonia or CHF. Alcohol level was undetectable, ammonia level was not elevated. On exam, the patient appeared quite dehydrated. She was jittery and anxious. Brain CT did not show any acute bleed or mass effect. CT angio of the head and neck were performed, there was no significant stenosis or clot. Patient received 1.5 L of IV saline. She was given IV magnesium and IV potassium. She was given IV Zofran. She received IV Decadron. She received IV calcium. The patient is in need of a hospital stay. She is quite dehydrated with significant electrolyte abnormalities. Since being medicated with the above, she is less agitated and feeling improved. I did speak with the patient and the significant other. I spoke with case management. The on-call hospitalist was consulted. Currently, the cause for the nausea and vomiting is unclear however, the persistent symptoms for the last week clearly led to significant dehydration with significant electrolyte deficiencies. Prior/Outside records/notes reviewed: None ECG per my interpretation: Indication was weakness. The ECG shows a sinus rhythm with frequent PVCs. The rate is 81. There is LVH present. There is significant baseline artifact. There is poor R wave progression. There is no obvious ST elevation. QTc is 487. Continuous Cardiac Monitoring per my interpretation: An order was placed for continuous cardiac monitoring. The monitor shows a rate of 102 with sinus tachycardia with PVCs. Imaging/x-ray results per my interpretation: Chest x-ray does not show mediastinal widening, pneumonia or pneumothorax. There is no cardiomegaly. Chronic Medical/Social conditions affecting care: None Care/Management discussed with: Case management, the on-call hospitalist. Level of care consideration(s): After review of the information above and other included data: --I believe the patient requires escalation of care to admission Critical Care Note: I have personally spent 48 minutes of critical care time in the direct management of this patient. This includes bedside care, interpretation of diagnostic studies, and testing, discussion with consultants, patient, and family members, and other required patient management activities. This 48 minutes is in excess of all separately billable procedures. DISPOSITION: Admission Past Med/Surg History Problem List Electrolyte disturbance Alcohol use disorder Seizure Acute hyponatremia Hypophosphatemia Acute hyponatremia (Acute) Acute dehydration (Acute) Vomiting and diarrhea (Acute) Hypokalemia (Acute) Hypomagnesemia (Acute) Weakness (Acute) Colitis Diarrhea Intractable abdominal pain Ketonuria (Acute) Elevated lactic acid level (Acute) Colitis (Acute) Acute hypokalemia (Acute) Abdominal pain (Acute) Hypokalemia (Acute) Hypomagnesemia (Acute) Vertigo (Acute) Sinus headache (Acute) Electrolyte abnormality Otitis media Sinus pressure Hyperglycemia Asymptomatic microscopic hematuria Epigastric pain Diarrhea Coffee ground emesis Intractable nausea and vomiting (Acute) Abdominal pain (Acute) Nausea & vomiting (Acute) Amenorrhea (Acute) Nexplanon in place (Acute) Chronic maxillary sinusitis Chronic frontoethmoidal sinusitis Medical History History of hematuria [facility] - pt denies at this time History of abdominal pain 02/11/25-02/14/25 [facility] IP - pt denies any issues since Diabetes mellitus, type 2 Diet Vertigo very rare, nothing recent History of nausea and vomiting 02/11/25-02/14/25 - [facility] IP - pt denies any issues since History of diarrhea 02/11/25-02/14/25 - [facility] IP - pt denies any issues since Colitis 02/11/25-02/14/25 - [facility] IP, Patient denies at this time - reason for procedure 04/12/25 Surgical History History of surgical removal of ganglion cyst History of esophagogastroduodenoscopy (EGD) History of colonoscopy History of sinus surgery 2018 History of laparoscopic cholecystectomy History of tonsillectomy Family History Brother Ulcerative colitis Unknown Alcoholism Irritable bowel syndrome Grandmother Breast cancer maternal Denies family history of Ovarian cancer Crohn's disease Colorectal cancer Uterine cancer Social History Smoking Status: Never smoker Tobacco Type: Cigarettes Second Hand Exposure: No; Do You Dip or Chew Tobacco: No; Hx Alcohol Use: Yes Alcohol type: wine Hx Substance Use: No Preferred Language: Malay Communication Ability: Effective 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: No Beliefs That Will Affect Care: None Current Living Situation: Significant Other Feels Safe at Home: Yes Assistive Devices: Glasses Allergies Allergies Allergy/AdvReac Type Severity Reaction Status Date / Time No Known Allergies Allergy Verified 04/12/25 10:00 Home Meds Home Medications Medication Instructions Recorded Confirmed multivitamin 1 tab PO DAILY 06/15/25 06/15/25 Results & Data (ED) Vital Signs Vital Signs - 24 hr 06/15/25 05:55 06/15/25 06:12 06/15/25 06:30 Temperature 36.6 C Temperature Source Oral Pulse Rate 66 102 H 99 H Respiratory Rate 20 21 Respiratory Effort / Characteristics Non-Labored Spontaneous Respiratory Depth Normal Respiratory Pattern Regular Blood Pressure 115/52 L Blood Pressure Mean 73 Blood Pressure Position Sitting Pulse Oximetry 97 Oxygen Delivery Method Room Air Sepsis Recent Fever Within 48 Hours No Sepsis New/Unexplained Change in Mental Status No Sepsis Action Taken by Nursing No Action Required 06/15/25 06:42 06/15/25 06:51 06/15/25 07:00 Temperature Temperature Source Pulse Rate 96 H 85 78 Respiratory Rate 19 26 H 24 Respiratory Effort / Characteristics Respiratory Depth Respiratory Pattern Blood Pressure Blood Pressure Mean Blood Pressure Position Pulse Oximetry Oxygen Delivery Method Sepsis Recent Fever Within 48 Hours Sepsis New/Unexplained Change in Mental Status Sepsis Action Taken by Nursing 06/15/25 07:12 06/15/25 07:24 06/15/25 07:36 Temperature Temperature Source Pulse Rate 80 79 77 Respiratory Rate 14 13 29 H Respiratory Effort / Characteristics Respiratory Depth Respiratory Pattern Blood Pressure Blood Pressure Mean Blood Pressure Position Pulse Oximetry Oxygen Delivery Method Sepsis Recent Fever Within 48 Hours Sepsis New/Unexplained Change in Mental Status Sepsis Action Taken by Nursing 06/15/25 07:37 Temperature Temperature Source Pulse Rate Respiratory Rate Respiratory Effort / Characteristics Respiratory Depth Respiratory Pattern Blood Pressure 162/82 H Blood Pressure Mean 132 Blood Pressure Position Pulse Oximetry Oxygen Delivery Method Sepsis Recent Fever Within 48 Hours Sepsis New/Unexplained Change in Mental Status Sepsis Action Taken by [facility] Medications Current Medication List: was personally reviewed by me Laboratory Data Attestation: I reviewed the patient's lab results. 06/15/25 06:15 06/15/25 13:01 Lab Results 06/15/25 06/15/25 06/15/25 Range/Units 06:07 06:15 06:19 WBC 13.43 H (4.8-10.8) K/ul RBC 4.94 (4.20-5.40) M/uL Hgb 14.0 (12.0-16.0) g/dl Hct 38.4 (37.0-47.0) % MCV 77.7 L (80.0-100.0) fL MCH 28.3 (25.0-34.0) pg MCHC 36.5 H (32.0-36.0) g/dL RDW Std Deviation 40.0 (36.4-46.3) fL RDW Coeff of [place] 14.5 (11.5-14.5) % Plt Count 321 (130-400) K/uL MPV 9.9 (9.4-12.4) fL Immature Gran % (Auto) 0.7 % Neut % (Auto) 84.8 % Lymph % (Auto) 6.3 % [place] % (Auto) 8.1 % Eos % (Auto) 0.0 % Baso % (Auto) 0.1 % Neut # (Auto) 11.39 H (1.40-6.50) K/uL Lymph # (Auto) 0.84 L (1.20-3.40) K/uL [place] # (Auto) 1.09 H (0.11-0.59) K/uL Eos # (Auto) 0.00 (0.00-0.50) K/uL Baso # (Auto) 0.02 (0.00-0.20) K/uL Immature Gran # (Auto) 0.09 (0.01-0.20) K/uL VBG pH 7.71 H (7.36-7.41) VBG pCO2 29 L (38-50) mmHg VBG pO2 31 mmHg VBG HCO3 37 mmol/L VBG O2 Saturation < 60.0 % VBG Base Excess 16.4 mEq/L Sodium 119 L* (136-145) mmol/L Potassium 1.9 L* (3.5-5.1) mmol/L Chloride 61 L (98-107) mmol/L Carbon Dioxide 32 (21-32) mmol/L Anion Gap 26 H (3-11) BUN 13 (6-23) mg/dl Creatinine 1.38 H (0.6-1.2) mg/dl Est Cr Clr Drug Dosing 64.7 ml/min eGFR 45.77 BUN/Creatinine Ratio 9.4 L (10-20) Glucose 298 H (70-99(Fasting)) mg/dl POC Glucose 323 H* (70-99) mg/dl Osmolality 253 L (280-300) mOsm/kg Calcium 7.9 L (8.6-10.3) mg/dl Phosphorus 1.8 L (2.5-4.9) mg/dl Magnesium 0.6 L* (1.7-2.4) mg/dl Total Bilirubin 2.3 H (0.2-1.0) mg/dl AST 77 H (13-39) U/L ALT 37 (7-52) U/L Alkaline Phosphatase 74 (34-104) U/L Ammonia 50.0 (18-72) umol/L Troponin I High Sens 52.0 H* (0-14) pg/ml Total Protein 7.9 (6.0-8.3) gm/dl Albumin 4.2 (3.4-5.0) gm/dl Globulin 3.7 (2.5-4.0) gm/dl Albumin/Globulin Ratio 1.1 (0.9-2) TSH 0.590 (0.300-4.500) uIu/ml Urine Color Urine Appearance (Clear) Urine pH (4.5-7.5) Ur Specific [place] (1.000-1.030) Urine Protein (Negative) Urine Glucose (UA) (Negative) Urine Ketones (Negative) Urine Blood (Negative) Urine Nitrite (Negative) Urine Bilirubin (Negative) Urine Urobilinogen (Negative) Ur Leukocyte Esterase (Negative) Urine WBC (Auto) (0-5) /hpf Urine RBC (Auto) (0-2) /hpf U Hyaline Cast (Auto) (0-2) /lpf U Epithel Cells (Auto) (0-2) /hpf Urine Bacteria (Auto) (None Seen) Urine Osmolality (500-800) mOsm/kg Urine Comment Ethyl Alcohol mg/dL (<10.0) mg/dl SARS-CoV-2 (PCR) NEGATIVE (Negative) Influenza Type A (PCR) Negative (Neg) Influenza Type B (PCR) Negative (Neg) RSV (RT-PCR) Negative (Neg) 06/15/25 06/15/25 Range/Units 07:07 07:34 WBC (4.8-10.8) K/ul RBC (4.20-5.40) M/uL Hgb (12.0-16.0) g/dl Hct (37.0-47.0) % MCV (80.0-100.0) fL MCH (25.0-34.0) pg MCHC (32.0-36.0) g/dL RDW Std Deviation (36.4-46.3) fL RDW Coeff of [place] (11.5-14.5) % Plt Count (130-400) K/uL MPV (9.4-12.4) fL Immature Gran % (Auto) % Neut % (Auto) % Lymph % (Auto) % [place] % (Auto) % Eos % (Auto) % Baso % (Auto) % Neut # (Auto) (1.40-6.50) K/uL Lymph # (Auto) (1.20-3.40) K/uL [place] # (Auto) (0.11-0.59) K/uL Eos # (Auto) (0.00-0.50) K/uL Baso # (Auto) (0.00-0.20) K/uL Immature Gran # (Auto) (0.01-0.20) K/uL VBG pH (7.36-7.41) VBG pCO2 (38-50) mmHg VBG pO2 mmHg VBG HCO3 mmol/L VBG O2 Saturation % VBG Base Excess mEq/L Sodium (136-145) mmol/L Potassium (3.5-5.1) mmol/L Chloride (98-107) mmol/L Carbon Dioxide (21-32) mmol/L Anion Gap (3-11) BUN (6-23) mg/dl Creatinine (0.6-1.2) mg/dl Est Cr Clr Drug Dosing ml/min eGFR BUN/Creatinine Ratio (10-20) Glucose (70-99(Fasting)) mg/dl POC Glucose (70-99) mg/dl Osmolality (280-300) mOsm/kg Calcium (8.6-10.3) mg/dl Phosphorus (2.5-4.9) mg/dl Magnesium (1.7-2.4) mg/dl Total Bilirubin (0.2-1.0) mg/dl AST (13-39) U/L ALT (7-52) U/L Alkaline Phosphatase (34-104) U/L Ammonia (18-72) umol/L Troponin I High Sens (0-14) pg/ml Total Protein (6.0-8.3) gm/dl Albumin (3.4-5.0) gm/dl Globulin (2.5-4.0) gm/dl Albumin/Globulin Ratio (0.9-2) TSH (0.300-4.500) uIu/ml Urine Color Yellow Urine Appearance Clear (Clear) Urine pH >= 9.0 H (4.5-7.5) Ur Specific [place] 1.013 (1.000-1.030) Urine Protein 2+ H (Negative) Urine Glucose (UA) 1+ H (Negative) Urine Ketones 2+ H (Negative) Urine Blood 2+ H (Negative) Urine Nitrite Negative (Negative) Urine Bilirubin Negative (Negative) Urine Urobilinogen Negative (Negative) Ur Leukocyte Esterase 1+ H (Negative) Urine WBC (Auto) 6-10 H (0-5) /hpf Urine RBC (Auto) 6-10 H (0-2) /hpf U Hyaline Cast (Auto) 0-2 (0-2) /lpf U Epithel Cells (Auto) 0-2 (0-2) /hpf Urine Bacteria (Auto) None Seen (None Seen) Urine Osmolality 411 L (500-800) mOsm/kg Urine Comment Ethyl Alcohol mg/dL < 10.0 (<10.0) mg/dl SARS-CoV-2 (PCR) (Negative) Influenza Type A (PCR) (Neg) Influenza Type B (PCR) (Neg) RSV (RT-PCR) (Neg) Administered Medications Heparin Sodium (Porcine) (Heparin Sod 5,000 Unit/0.5 Ml Vial) 5,000 units SQ Q8 DENNISE Stop: 07/15/25 13:59 Last Admin: 06/15/25 14:27 Dose: 5,000 units Documented By: PENNY Potassium Phosphate 30 mmol/ (Sodium Chloride) 510 mls @ 88 mls/hr IV ONE ONE Stop: 06/15/25 15:17 Last Admin: 06/15/25 10:04 Dose: 88 mls/hr Documented By: MEJIA Magnesium Sulfate/Dextrose (Magnesium Sulfate / D5w) 1 gm in 100 mls @ 50 mls/hr IV Q2H [facility] Stop: 06/15/25 15:59 Last Admin: 06/15/25 15:00 Dose: 50 mls/hr Documented By: Infusion: 06/15/25 14:50 Dose: Infused Documented By: Admin: 06/15/25 12:50 Dose: 50 mls/hr Documented By: Infusion: 06/15/25 12:46 Dose: Infused Documented By: Admin: 06/15/25 10:46 Dose: 50 mls/hr Documented By: MEJIA Lorazepam 2 mg/ Syringe 2 mls @ 2 mls/min IV UD PRN; Protocol PRN Reason: AWSS 8,9 (Sx Triggered) Stop: 07/15/25 10:40 Last Admin: 06/15/25 11:30 Dose: 2 mls/min Documented By: PENNY Pantoprazole Sodium (Protonix) 40 mg in 10 mls @ 5 mls/min IV DAILY [facility] Stop: 07/15/25 11:44 Last Admin: 06/15/25 14:22 Dose: 5 mls/min Documented By: PENNY Insulin Aspart (Insulin Aspart Per Unit Charge) 0 units SC ACHS [facility] Stop: 07/15/25 11:29 Last Admin: 06/15/25 13:59 Dose: 2 units Documented By: PENNY Co-signed By: SHY Ondansetron HCl (Ondansetron Inj 2 Mg/Ml 2 Ml Vial) 4 mg IV Q4H PRN PRN Reason: Nausea And Vomiting Stop: 07/15/25 09:31 Last Admin: 06/15/25 13:48 Dose: 4 mg Documented By: SHY Discontinued Medications Dexamethasone Sodium Phosphate (DexamethasonePf 10 Mg/Ml Vial) 4 mg IM NOW ONE Stop: 06/15/25 06:17 Last Admin: 06/15/25 06:24 Dose: 4 mg Documented By: MATT Sodium Chloride (Nss) 500 mls @ 999 mls/hr IV .Q31M DENNISE Stop: 06/15/25 06:45 Last Infusion: 06/15/25 06:39 Dose: Infused Documented By: Admin: 06/15/25 06:08 Dose: 999 mls/hr Documented By: Promethazine HCl (Phenergan) 6.25 mg in 50.25 mls @ 201 mls/hr IV NOW STA Stop: 06/15/25 06:30 Last Infusion: 06/15/25 06:40 Dose: Infused Documented By: Admin: 06/15/25 06:26 Dose: 201 mls/hr Documented By: MATT Sodium Chloride (Nss) 1,000 mls @ 999 mls/hr IV .Q1H1M ONE Stop: 06/15/25 08:03 Last Infusion: 06/15/25 09:58 Dose: Infused Documented By: Admin: 06/15/25 07:27 Dose: 999 mls/hr Documented By: JOEY Magnesium Sulfate/Dextrose (Magnesium Sulfate / D5w) 1 gm in 100 mls @ 100 mls/hr IV Q1H DENNISE Stop: 06/15/25 09:12 Last Infusion: 06/15/25 09:59 Dose: Infused Documented By: Admin: 06/15/25 08:21 Dose: 100 mls/hr Documented By: shira Infusion: 06/15/25 08:21 Dose: Infused Documented By: shira Admin: 06/15/25 07:32 Dose: 100 mls/hr Documented By: JOEY Potassium Chloride ([place] / Wtr) 10 meq in 100 mls @ 100 mls/hr IV ONE ONE Stop: 06/15/25 08:12 Last Infusion: 06/15/25 08:40 Dose: Infused Documented By: Admin: 06/15/25 07:27 Dose: 100 mls/hr Documented By: JOEY Potassium Chloride ([place] / Wtr) 10 meq in 100 mls @ 100 mls/hr IV Q1H DENNISE Stop: 06/15/25 11:44 Last Admin: 06/15/25 13:03 Dose: 100 mls/hr Documented By: Infusion: 06/15/25 11:41 Dose: Infused Documented By: Admin: 06/15/25 10:41 Dose: 100 mls/hr Documented By: Infusion: 06/15/25 10:41 Dose: Infused Documented By: Admin: 06/15/25 09:45 Dose: 100 mls/hr Documented By: Infusion: 06/15/25 09:21 Dose: Infused Documented By: Admin: 06/15/25 08:21 Dose: 100 mls/hr Documented By: shira Calcium Gluconate () 1,000 mg in 60 mls @ 240 mls/hr IV NOW STA Stop: 06/15/25 07:54 Last Infusion: 06/15/25 08:24 Dose: Infused Documented By: shira Admin: 06/15/25 08:07 Dose: 240 mls/hr Documented By: shira Sodium Chloride (Hypertonic Saline 3%) 150 mls @ 450 mls/hr IV .Q20M ONE; Protocol Stop: 06/15/25 11:19 Last Admin: 06/15/25 11:24 Dose: 450 mls/hr Documented By: LARRY Co-signed By: PENNY Phenobarbital Sodium 325 mg/ (Sodium Chloride) 52.5 mls @ 315 mls/hr IV NOW STA Stop: 06/15/25 11:34 Last Admin: 06/15/25 11:56 Dose: 315 mls/hr Documented By: LARRY Acetazolamide 500 mg/ Syringe 5 mls @ 1.667 mls/min IV ONE STA Stop: 06/15/25 13:36 Last Admin: 06/15/25 14:22 Dose: 1.667 mls/min Documented By: PENNY Thiamine HCl 200 mg/ Sodium (Chloride) 52 mls @ 210 mls/hr IV NOW STA Stop: 06/15/25 13:50 Last Admin: 06/15/25 14:22 Dose: 210 mls/hr Documented By: PENNY Influenza Virus Vacc Triv Types A&B (Influenza Vacc Rh8628-02(6m+)/Pf (Iiv3) 0.5ml Syr) 0.5 ml IM .ONCE ONE Stop: 06/15/25 09:53 Last Admin: 06/15/25 10:49 Dose: Not Given Documented By: MEJIA Ioversol (Optiray 320 125ml) 112 ml IV ONCE ONE Stop: 06/15/25 07:43 Last Admin: 06/15/25 07:42 Dose: 112 ml Documented By: MAHNAZ Lorazepam (Lorazepam 1 Mg/1 Ml Syr Ed Inj Use) 0.5 mg IV ONE STA Stop: 06/15/25 06:17 Last Admin: 06/15/25 06:23 Dose: 0.5 mg Documented By: MATT Lorazepam (Lorazepam 1 Mg/1 Ml Syr Ed Inj Use) 2 mg IV ONE STA Stop: 06/15/25 11:00 Last Admin: 06/15/25 15:00 Dose: Not Given Documented By: PENNY Lorazepam (Lorazepam 2 Mg/1 Ml Vial) Confirm Administered Dose 2 mg .ROUTE .STK- MED ONE Stop: 06/15/25 11:01 Last Admin: 06/15/25 11:05 Dose: 2 mg Documented By: TODD Lorazepam (Lorazepam 2 Mg/1 Ml Vial) Confirm Administered Dose 2 mg .ROUTE .STK- MED ONE Stop: 06/15/25 11:31 Last Admin: 06/15/25 13:45 Dose: Not Given Documented By: PENNY Ondansetron HCl (Ondansetron Inj 2 Mg/Ml 2 Ml Vial) 4 mg IV NOW STA Stop: 06/15/25 06:02 Last Admin: 06/15/25 06:07 Dose: 4 mg Documented By: Ondansetron HCl (Ondansetron Inj 2 Mg/Ml 2 Ml Vial) 4 mg IV NOW STA Stop: 06/15/25 09:01 Last Admin: 06/15/25 09:46 Dose: 4 mg Documented By: MEJIA Phenobarbital Sodium (Phenobarbital Sodium 130 Mg/Ml Vial) 260 mg 3.6 mg/kg (260 mg) IM ONE ONE Stop: 06/15/25 14:17 Last Admin: 06/15/25 14:27 Dose: 260 mg Documented By: PENNY Potassium Chloride (Potassium Chloride Crtab 20 Meq Tabcr) 40 meq PO NOW STA Stop: 06/15/25 07:36 Last Admin: 06/15/25 08:08 Dose: 40 meq Documented By: shira Potassium Chloride (Potassium Chloride Crtab 20 Meq Tabcr) 80 meq PO NOW STA Stop: 06/15/25 10:34 Last Admin: 06/15/25 13:44 Dose: 80 meq Documented By: AMB Imaging Data Radiologist's Impression: Chest X-Ray 06/15/25 06:01 EXAM: XR chest 1V portable CLINICAL HISTORY: weakness TECHNIQUE: An X-ray image of the chest was obtained in the AP projection. COMPARISON: None. FINDINGS: The lungs are clear and well-expanded, with no pulmonary infiltrate or pleural effusion. The cardiomediastinal silhouette is within normal limits. No acute osseous abnormality is identified. IMPRESSION: 1. No acute cardiopulmonary disease. Electronically signed by Kota Morillo 06-15-2025 06:[address] 06/15/25 06:16 CT SCAN OF THE BRAIN WITHOUT IV CONTRAST CLINICAL HISTORY: Dizzy. COMPARISON STUDY: Head CT November 23, 2020. TECHNIQUE: Unenhanced axial CT scan of the brain was performed from the vertex to the skull base. A dose lowering technique was utilized adhering to the principles of ALARA. FINDINGS: Brain parenchyma: This exam is mildly compromised by motion artifact. No acute intracranial hemorrhage, midline shift or mass effect is present. [place]-white matter differentiation is preserved. There are no extra-axial fluid collections. There are no findings to suggest acute dural sinus thrombosis or acute territorial infarct. Ventricles, sulci, cisterns: There is no hydrocephalus. The basal cisterns are patent. Calvarium: No calvarial fractures are identified. There are several sebaceous cysts within the scalp. Sinuses and mastoids: The visualized paranasal sinuses are clear. The mastoid air cells are well pneumatized. Orbits: The bony orbits are grossly intact. IMPRESSION: No acute intracranial findings. Mild motion artifact. ACT 112: Negative or not required by law. Electronically signed by: Keith Pedraza M.D. 06/15/2025 8:10 AM Head CTA 06/15/25 06:16 CT ANGIOGRAM OF THE BRAIN CLINICAL HISTORY: Vertigo. COMPARISON STUDY: Unenhanced CT of the brain performed concurrently on 06/15/2025. CT angiogram of the brain dated 11/23/2020. TECHNIQUE: Following the IV administration of 112 cc of Optiray 320, CT angiogram of the brain was performed from the skull base to the vertex. Images are reviewed in the axial, sagittal, and coronal planes. 3-D MIPS images are created and assessed. IV contrast was administered without complication. A dose lowering technique was utilized adhering to the principles of ALARA. CT DOSE: 1766.63 mGy.cm FINDINGS: Brain parenchyma: There is no evidence of hemorrhage or mass effect noting angiographic phase technique. There is no evidence of enhancing mass lesion on the angiogram phase images. No extra-axial fluid collection is seen. [place]-white matter differentiation is preserved. Ventricles, sulci, and cisterns: Normal in configuration. CT angiogram of the brain: The internal carotid arteries at the skull base are patent, as are the anterior and middle cerebral arteries. The vertebrobasilar system and posterior cerebral arteries are patent. The left vertebral artery is dominant. There is a right posterior communicating artery. There is no aneurysm, high-grade stenosis, or focal vessel cutoff identified throughout the intracranial circulation. Dural sinuses: Clear as visualized. Orbits: The bony orbits are intact. The orbital contents are normal as visualized. Sinuses and mastoids: There is evidence of previous paranasal sinus surgery. There is trace mucosal thickening in the right maxillary antrum. The paranasal sinuses are otherwise clear. The mastoid air cells are well pneumatized. Calvarium: Unremarkable. Soft tissues: A 1.3 cm sebaceous cyst is noted in the left frontal scalp. IMPRESSION: 1. There is no evidence of hemorrhage or mass effect noting angiographic phase technique. 2. Unremarkable CT angiogram of the brain. ACT 112: Negative or not required by law. Electronically signed by: Itz Escobedo M.D. 06/15/2025 8:39 AM Neck CTA 06/15/25 06:16 CT angio neck with con CLINICAL HISTORY: 54 years-old Female with vertigo. Acute vertigo with strokelike symptoms COMPARISON STUDY: CTA head of same day, CTA neck 11/23/2020. TECHNIQUE: Following the IV administration of 112 mL of Optiray, CT angiogram of the neck was performed from the aortic arch to the skull base. Images are reviewed in the axial, sagittal, and coronal planes. 3-D MIPS images are created and assessed. IV contrast was administered without complication. All measurements were calculated based on NASCET criteria. A dose lowering technique was utilized adhering to the principles of ALARA. FINDINGS: Three-vessel morphology of the thoracic arch. There is patency of the innominate and imaged subclavian arteries. The common carotid arteries are widely patent. There is moderate atherosclerosis of the right carotid bulb without significant stenosis. The imaged internal carotid arteries are patent. The vertebral arteries are codominant and widely patent. No aneurysm, dissection, high-grade stenosis or arterial occlusion. Lung apices are clear. No pneumothorax. Unremarkable soft tissues. No acute fracture. IMPRESSION:Unremarkable CTA of the neck. ACT 112: Negative or not required by law. The above report was generated using voice recognition software. It may contain grammatical, syntax or spelling errors. Electronically signed by: Lucas Morales M.D. 06/15/2025 8:18 AM Discharge Plan Visit Data Chief Complaint: Vertigo Stated Complaint: NAUSEA,DEHYDRATED,FLU SYMP,VERTIGO ED Provider: Itz Jackson Discharge Problem: Weakness, Hypomagnesemia, Hypokalemia, Vomiting and diarrhea, Acute dehydration, Acute hyponatremia Patient Disposition: Admitted As Inpatient Condition: Serious Discharge Instructions Interventions: ED Discharge Assessment Last Done: 06/15/25 09:34
[2025-06-15] MEDS: LORazepam 1 MG/1 ML SYR ED Inj Use IV STA ×2 (06:23→15:00)
[2025-06-15] MEDS: dexAMETHasone**PF** 10 MG/ML VIAL IM ONE (06:24)
[2025-06-15] MEDS: PROMETHAZINE 6.25 MG/50.25 ML BAG IV STA (06:26)
[2025-06-15 06:28] LABS: Base Excess VBG 16.4 mEq/L; HCO3 VBG 37 mmol/L; Oxygen Saturation VBG < 60.0 %; PCO2 VBG 29 mmHg (38-50); PO2 VBG 31 mmHg; pH VBG 7.71 (7.36-7.41)
[2025-06-15 06:38] LABS: Hematocrit (blood only) 38.4 % (37.0-47.0); Hemoglobin 14.0 g/dl (12.0-16.0); Immature Granulocytes # (auto) 0.09 K/uL (0.01-0.20); Immature Granulocytes % (auto) 0.7 %; Mean Corpuscular Hemoglobin 28.3 pg (25.0-34.0); Mean Corpuscular Volume 77.7 fL (80.0-100.0); Platelet Count 321 K/uL (130-400); RDW Standard Deviation 40.0 fL (36.4-46.3); Red Blood Count 4.94 M/uL (4.20-5.40); White Blood Count 13.43 K/ul (4.8-10.8)
--- NOTE | 2025-06-15 06:41 | XRay Report ---
EXAM: XR chest 1V portable CLINICAL HISTORY: weakness TECHNIQUE: An X-ray image of the chest was obtained in the AP projection. COMPARISON: None. FINDINGS: The lungs are clear and well-expanded, with no pulmonary infiltrate or pleural effusion. The cardiomediastinal silhouette is within normal limits. No acute osseous abnormality is identified. IMPRESSION: 1. No acute cardiopulmonary disease. Electronically signed by Kota Morillo 06-15-2025 06:41 AM
[2025-06-15 07:02] LABS: Influenza A virus by PCR Negative (Neg); Influenza B virus by PCR Negative (Neg); SARS CoV2 RNA(COVID-19) Ceph NEGATIVE (Negative)
[2025-06-15 07:15] LABS: Alanine Aminotransferase 37.0 U/L (7-52); Albumin Globulin Ratio 1.1 (0.9-2); Albumin Level 4.2 gm/dl (3.4-5.0); Alkaline Phosphatase 74.0 U/L (34-104); Anion Gap 26.0 (3-11); Bilirubin,Total 2.3 mg/dl (0.2-1.0); Blood Urea Nitrogen 13.0 mg/dl (6-23); Calcium 7.9 mg/dl (8.6-10.3); Carbon Dioxide 32.0 mmol/L (21-32); Chloride 61.0 mmol/L (98-107); Creatinine Clr Calc Pharmacy 64.7 ml/min; Globulin 3.7 gm/dl (2.5-4.0); Glucose 298.0 mg/dl (70-99(Fasting)); Magnesium 0.6 mg/dl (1.7-2.4); Potassium 1.9 mmol/L (3.5-5.1); Sodium 119.0 mmol/L (136-145); Thyroid Stimulating Hormone 0.59 uIu/ml (0.300-4.500); Total Protein 7.9 gm/dl (6.0-8.3)
[2025-06-15] MEDS: SODIUM CHLORIDE 0.9% 1,000 ML IV ONE (07:27)
[2025-06-15] MEDS: POTASSIUM CHLORIDE / WTR 10 MEQ/100 ML PLCT IV ONE (07:27)
[2025-06-15] MEDS: MAGNESIUM SULFATE / D5W 1 GM/100 ML BAG IV SCH ×2 (07:32→10:46)
[2025-06-15] MEDS: OPTIRAY 320 125ml IV ONE (07:42)
--- NOTE | 2025-06-15 07:42 | History & Physical Report ---
Date of Service June 15, 2025 Assessment & Plan (1) Acute hyponatremia: (2) Acute dehydration: (3) Vomiting and diarrhea: (4) Hypokalemia: (5) Hypomagnesemia: (6) Weakness: (7) Hypophosphatemia: Plan - Admit to tele/ PCU with severe electrolyte abnormalities and dehydration - BMP in 4 hours - Severe hyponatremia with Na 119, hypomagnesemia severe with mg 0.6, phosphorus 1.8 - NSS at 1.5 L infused in the ER, expect to switch to D5 with correction of lytes and glucose level initially 323. - Replace K+ IV and po, phos IV, and Na+ with fluids- will trend to monitor correction - Trend glucose Q6H today - Check stool biofire, c diff - RVP for covid/flu/rsv is negative - UA pending follow - Pt with recent antibiotic use of Augmentin 10 d course 1 month ago for chronic sinusitis - similar presentation in February with antibiotic use 1 month prior to that hospitalization. - CT of the head, CTA head and neck are negative for acute findings. Of note the sinuses and mastoids are clear. - CXR reviewed, no acute cardiopulmonary disease DVT ppx: teds, scds Lines: PIV x 1 FEN/GI: clears CODE: Full code Dispo: From home, likely to remain in the hospital x 1-2 days I spent a total of 76 minutes with greater than 50% of that time face to face with the patient, personally reviewing all current laboratories, imaging studies, past medication reconciliation, outpatient chart review, and discussion with specialists to collaborate care for the patient excluding time spent in the performance of separately billed services or time spent by another provider/QHP. Please see attending documentation for corrections and/or additions. Update: ~11:00a pt had CODE PURPLE called, found to be in a generalized seizure witnessed by nursing staff. Eyes to the left, vomiting occurred. Pt is confused post ictally. Transfer to the ICU, discussed with marine diver and attending Ativan 2 mg IV stat Load with phenobarbital and continue with suspicion for alcohol use as well as severe electrolyte abnormalities Hypertonic saline IV 450 ml/hr stat Monitor closely for aspiration, currently no supplemental O2 needs History of Present Illness Chief Complaint: Diarrhea x 6 days, vomiting, severe dehydration Primary Care Provider: George Kasper MD This is a 54 yo F with PMHx type 2 diabetes, hypertension, obesity who presents to the hospital after feeling sick with diarrhea x 1 week, vertigo, symptoms worsening in the past 12 hours, vomiting, had a stumbling fall, jittery and shaking in the ER. She also was having difficult saying some words and finishing sentances this morning, which started around 3 am, so her /significant other named OJ brought her to the ER. Pt admits to finishing a 10 day course of Augmentin about 1 month ago for chronic sinusitis. She is using a probiotic and eating yogurt during antibiotic course. She denies having any sick contacts. Nobody else in her household is having similar symptoms. She admits to having diarrhea which is loose, watery brown 4-6 times per day for the last 6 days, denies any blood, no history of hemorrhoids or dark tarry stools. She has been nauseous and started vomiting 1 to 2 days ago, with inability to keep any medications down. She does have Zofran at home which she tried however ended up vomiting and does not think the medication absorbed. Her p.o. intake has been very poor due to this. She is not on any home medications. . Dehydration found with hypokalemia 1.9, Magnesium 0.6, STEPHON with Cr 1.38/BUN 13. Na 119. Phosphorus 1.8 EKG does not show any ischemia or ST wave inversions, only PVCs. Allergies Allergy/AdvReac Type Severity Reaction Status Date / Time No Known Allergies Allergy Verified 04/12/25 10:00 Home Medications Medication Instructions Recorded Confirmed Type multivitamin 1 tab PO DAILY 06/15/25 06/15/25 History Past Med/Surg History Problem List Hypophosphatemia Acute hyponatremia (Acute) Acute dehydration (Acute) Vomiting and diarrhea (Acute) Hypokalemia (Acute) Hypomagnesemia (Acute) Weakness (Acute) Colitis Diarrhea Intractable abdominal pain Ketonuria (Acute) Elevated lactic acid level (Acute) Colitis (Acute) Acute hypokalemia (Acute) Abdominal pain (Acute) Hypokalemia (Acute) Hypomagnesemia (Acute) Vertigo (Acute) Sinus headache (Acute) Electrolyte abnormality Otitis media Sinus pressure Hyperglycemia Asymptomatic microscopic hematuria Epigastric pain Diarrhea Coffee ground emesis Intractable nausea and vomiting (Acute) Abdominal pain (Acute) Nausea & vomiting (Acute) Amenorrhea (Acute) Nexplanon in place (Acute) Chronic maxillary sinusitis Chronic frontoethmoidal sinusitis Medical History History of hematuria emr 2020 - pt denies at this time History of abdominal pain 02/11/25-02/14/25 - [facility] IP - pt denies any issues since Diabetes mellitus, type 2 Diet Vertigo very rare, nothing recent History of nausea and vomiting 02/11/25-02/14/25 - [facility] IP - pt denies any issues since History of diarrhea 02/11/25-02/14/25 - [facility] IP - pt denies any issues since Colitis 02/11/25-02/14/25 - [facility] IP, Patient denies at this time - reason for procedure 04/12/25 Surgical History History of surgical removal of ganglion cyst History of esophagogastroduodenoscopy (EGD) History of colonoscopy History of sinus surgery 2018 History of laparoscopic cholecystectomy History of tonsillectomy Family History Brother Ulcerative colitis Unknown Alcoholism Irritable bowel syndrome Grandmother Breast cancer maternal Denies family history of Ovarian cancer Crohn's disease Colorectal cancer Uterine cancer Social History Smoking Status: Never smoker Tobacco Type: Cigarettes Second Hand Exposure: No; Do You Dip or Chew Tobacco: No; Hx Alcohol Use: Yes Alcohol type: wine Hx Substance Use: No Preferred Language: Azeri Communication Ability: Effective Scuba Diver Required: No Beliefs That Will Affect Care: None Current Living Situation: Significant Other Feels Safe at Home: Yes Assistive Devices: Glasses Review of Systems Review of Systems: Constitutional: No fever, sweats or chills, Generalized ill feeling, malaise, dizziness, vertigo Eyes: No diplopia, no worsening or blurred vision ENT: + very dry mouth,normal hearing, no trouble swallowing Respiratory: No cough, sputum, dyspnea at rest or on exertion Cardiovascular: No chest pain, tightness or palpitations Abdomen: as per HPI, no abdominal pain,+ nausea, +vomiting,+ diarrhea, no constipation Musculoskeletal: No joint pain, calf pain, swelling Neurologic: No weakness, numbness/tingling, or balance problems, had a slight stumble this morning due to dizziness Psychiatric: No anxiety or depression Skin: No rash or itch Physical Exam Physical Exam: General: awake, alert, no apparent distress, obese white female Head: Normocephalic, atraumatic ENT: PERRL, EOMI, no pharyngeal exudate, mucous membranes very dry Chest: Clear to auscultation, on room air, no adventitious breath sounds Cardiac: Regular rate and rhythm, + few PVCs, no murmur, no JVD, normal peripheral pulses, good capillary refill Abdominal: NABS x 4 quadrants, soft, nondistended, nontender to palpation, no rebound or guarding Extremities: Normal inspection, no peripheral edema or erythema, calfs nontender to palpation Psych: Normal mood and affect Neuro: AAO x 3, strength intact bilaterally and rated 5/5, no motor deficits, speech is clear, + she has difficulty word finding at times, no peripheral sensory deficits Results & Data Results & Data Vital Signs (Past 12 Hours) Vital Signs Temp Pulse Resp BP Pulse Ox O2 Del Method 06/15/25 06:12 102 H 06/15/25 05:55 36.6 C 66 20 115/52 L 97 Room Air Laboratory Results 06/15/25 06/15/25 06/15/25 06:19 06:15 06:07 WBC 13.43 H RBC 4.94 Hgb 14.0 Hct 38.4 MCV 77.7 L MCH 28.3 MCHC 36.5 H RDW Std Deviation 40.0 RDW Coeff of [place] 14.5 Plt Count 321 MPV 9.9 Immature Gran % (Auto) 0.7 Neut % (Auto) 84.8 Lymph % (Auto) 6.3 [place] % (Auto) 8.1 Eos % (Auto) 0.0 Baso % (Auto) 0.1 Neut # (Auto) 11.39 H Lymph # (Auto) 0.84 L [place] # (Auto) 1.09 H Eos # (Auto) 0.00 Baso # (Auto) 0.02 Immature Gran # (Auto) 0.09 VBG pH 7.71 H VBG pCO2 29 L VBG pO2 31 VBG HCO3 37 VBG O2 Saturation < 60.0 VBG Base Excess 16.4 Sodium 119 L* Potassium 1.9 L* Chloride 61 L Carbon Dioxide 32 Anion Gap 26 H BUN 13 Creatinine 1.38 H Est Cr Clr Drug Dosing 64.7 eGFR 45.77 BUN/Creatinine Ratio 9.4 L Glucose 298 H POC Glucose 323 H* Calcium 7.9 L Magnesium 0.6 L* Total Bilirubin 2.3 H AST 77 H ALT 37 Alkaline Phosphatase 74 Troponin I High Sens 52.0 H* Total Protein 7.9 Albumin 4.2 Globulin 3.7 Albumin/Globulin Ratio 1.1 TSH 0.590 SARS-CoV-2 (PCR) NEGATIVE Influenza Type A (PCR) Negative Influenza Type B (PCR) Negative RSV (RT-PCR) Negative Diagnostic Findings Chest X-Ray 06/15/25 06:01 EXAM: XR chest 1V portable CLINICAL HISTORY: weakness TECHNIQUE: An X-ray image of the chest was obtained in the AP projection. COMPARISON: None. FINDINGS: The lungs are clear and well-expanded, with no pulmonary infiltrate or pleural effusion. The cardiomediastinal silhouette is within normal limits. No acute osseous abnormality is identified. IMPRESSION: 1. No acute cardiopulmonary disease. Electronically signed by Kota Morillo 06-15-2025 06:41 AM ECG Additional Comments: Reviewed personally, few PVCs, no ST wave depression, no ischemia noted Code Status & VTE Plan Code Status Full code - discussed with patient and significant other at bedside. Supervising Physician Co-Signing Physician Notes I have seen and discussed the case with the collaborating advanced practitioner. I agree with the above H&P. I have reviewed and confirmed the patients medical history, the findings on physical examination, and the patients diagnosis and treatment plan with Luisana HEAD and agree with the information documented. Ms. Vázquez us a 54-year-old female with past med history significant for type 2 diabetes, hypertension, obesity admitted for multiple electrolyte abnormalities iso days of diarrhea. Patient noted to have hyponatremia 119-->115 after fluid bolus. Patient administered multiple IV electrolyte and nephrology consulted. However, at around 1045 patient experienced witnessed seizure and code purple called. Presented to bedside, patient postictal. Seizure witnessed by nursing who notes eyes up and to left with generalized shaking. #Acute new-onset seizure likely iso hyponatremia, possible alcohol withdrawal unlcear of etoh history--reports of daily, vs weekly, vs socially s/p ativan 2gm IV phenobarbital load and AWSS Transfer to ICU seizure precautions 150ml NaCl 3% now as sodium dropping MRI ordered #Acute hypoosmolar hyponatremia #anion gap, mix acidosis/alkalosis #Hypomagnesemia #Hypophosphatemia #Acute Diarrhea #possible alcohol misuse multifactorial iso reported diarrhea, question of etoh use lactatic acidosis resolved s/p IVF, low osmolar urine 411 and serum studies 253 Cortisol not obtained as given IV decadron in ED Uric acid and TSH wnl aggressive replacement of lytes Montior I/Os s/p IV NaCl 3% Nephrology consulted ICU consulted #Leukocytosis #Chronic anemia anticipate drop in hgb to ~11 s/p fluid administration iso hemoconcentration CTM #STEPHON on arrival stephon noted, resolved on follow up BMP avoid nephrotoxic agents #Hypertension monitor s/p phenobarbital and ativan #Hyperglycemia #Diabetes repeat A1C -SSI #Chronically Elevated Transaminases -r/o GRAVES outpatient DVT heparin sq GI ppx PPI IV daily I spent a total of 75 critical care minutes coordinating, documenting, and providing care for this patient excluding time spent in the performance of separately billed services. All of the aforementioned completed outside of collaborating with the assigned advanced practitioner for a full treatment plan. I have reviewed the advanced practitioner's documentation, and I agree with, and take responsibility for the plan of care
[2025-06-15 07:59] LABS: Appearance Urine Clear (Clear); Bacteria Urine Automated None Seen (None Seen); Cast Urine Automated 0-2 /lpf (0-2); Epithelial Cell Urine Auto 0-2 /hpf (0-2); Glucose Urine UA 1+ (Negative)
[2025-06-15] MEDS: CALCIUM GLUCONATE 1,000 MG/60 ML BAG IV STA (08:07)
[2025-06-15] MEDS: POTASSIUM CHLORIDE CRTAB 20 MEQ TABCR PO STA ×3 (08:08→18:50)
--- NOTE | 2025-06-15 08:12 | CT Scan Report ---
CT SCAN OF THE BRAIN WITHOUT IV CONTRAST CLINICAL HISTORY: Dizzy. COMPARISON STUDY: Head CT November 23, 2020. TECHNIQUE: Unenhanced axial CT scan of the brain was performed from the vertex to the skull base. A dose lowering technique was utilized adhering to the principles of ALARA. FINDINGS: Brain parenchyma: This exam is mildly compromised by motion artifact. No acute intracranial hemorrhag e, midline shift or mass effect is present. [place]-white matter differentiation is preserved. There are no extra-axial fluid collections. There are no findings to suggest acute dural sinus thrombosis or a cute territorial infarct. Ventricles, sulci, cisterns: There is no hydrocephalus. The basal cisterns are patent. Calvarium: No calvarial fractures are identified. There are several sebaceous cysts within the scalp. Sinuses and mastoids: The visualized paranasal sinuses are clear. The mastoid air cells are well pneu matized. Orbits: The bony orbits are grossly intact. IMPRESSION: No acute intracranial findings. Mild motion artifact. ACT 112: Negative or not required by law. Electronically signed by: Keith Pedraza M.D. 06/15/2025 8:10 AM
--- NOTE | 2025-06-15 08:20 | CT Scan Report ---
CT angio neck with con CLINICAL HISTORY: 54 years-old Female with vertigo. Acute vertigo with strokelike symptoms COMPARISON STUDY: CTA head of same day, CTA neck 11/23/2020. TECHNIQUE: Following the IV administration of 112 mL of Optiray, CT angiogram of the neck was perform ed from the aortic arch to the skull base. Images are reviewed in the axial, sagittal, and coronal pl anes. 3-D MIPS images are created and assessed. IV contrast was administered without complication. Al l measurements were calculated based on NASCET criteria. A dose lowering technique was utilized adhe ring to the principles of ALARA. FINDINGS: Three-vessel morphology of the thoracic arch. There is patency of the innominate and imaged subclavia n arteries. The common carotid arteries are widely patent. There is moderate atherosclerosis of the r ight carotid bulb without significant stenosis. The imaged internal carotid arteries are patent. The vertebral arteries are codominant and widely patent. No aneurysm, dissection, high-grade stenosis or arterial occlusion. Lung apices are clear. No pneumothorax. Unremarkable soft tissues. No acute fracture. IMPRESSION:Unremarkable CTA of the neck. ACT 112: Negative or not required by law. The above report was generated using voice recognition software. It may contain grammatical, syntax o r spelling errors. Electronically signed by: Lucas Morales M.D. 06/15/2025 8:18 AM
[2025-06-15] MEDS: POTASSIUM CHLORIDE / WTR 10 MEQ/100 ML PLCT IV SCH (08:21)
--- NOTE | 2025-06-15 08:40 | CT Scan Report ---
CT ANGIOGRAM OF THE BRAIN CLINICAL HISTORY: Vertigo. COMPARISON STUDY: Unenhanced CT of the brain performed concurrently on 06/15/2025. CT angiogram of th e brain dated 11/23/2020. TECHNIQUE: Following the IV administration of 112 cc of Optiray 320, CT angiogram of the brain was pe rformed from the skull base to the vertex. Images are reviewed in the axial, sagittal, and coronal pl anes. 3-D MIPS images are created and assessed. IV contrast was administered without complication. A dose lowering technique was utilized adhering to the principles of ALARA. CT DOSE: 1766.63 mGy.cm FINDINGS: Brain parenchyma: There is no evidence of hemorrhage or mass effect noting angiographic phase techniq ue. There is no evidence of enhancing mass lesion on the angiogram phase images. No extra-axial fluid collection is seen. [place]-white matter differentiation is preserved. Ventricles, sulci, and cisterns: Normal in configuration. CT angiogram of the brain: The internal carotid arteries at the skull base are patent, as are the ant erior and middle cerebral arteries. The vertebrobasilar system and posterior cerebral arteries are pa tent. The left vertebral artery is dominant. There is a right posterior communicating artery. There i s no aneurysm, high-grade stenosis, or focal vessel cutoff identified throughout the intracranial cir culation. Dural sinuses: Clear as visualized. Orbits: The bony orbits are intact. The orbital contents are normal as visualized. Sinuses and mastoids: There is evidence of previous paranasal sinus surgery. There is trace mucosal t hickening in the right maxillary antrum. The paranasal sinuses are otherwise clear. The mastoid air c ells are well pneumatized. Calvarium: Unremarkable. Soft tissues: A 1.3 cm sebaceous cyst is noted in the left frontal scalp. IMPRESSION: 1. There is no evidence of hemorrhage or mass effect noting angiographic phase technique. 2. Unremarkable CT angiogram of the brain. ACT 112: Negative or not required by law. Electronically signed by: Itz Escobedo M.D. 06/15/2025 8:39 AM
[2025-06-15] MEDS ORDERED: POTASSIUM PHOS 3 MMOL/1 ML INFUSION IV STA (09:01)
[2025-06-15] MEDS ORDERED: GLUCAGON FOR INJ 1 MG VIAL SQ PRN ×3 (09:32→21:34)
[2025-06-15] MEDS ORDERED: CARBOHYDRATES FOR HYPOGLYCEMIA PO PRN ×3 (09:32→21:34)
[2025-06-15] MEDS ORDERED: DEXTROSE 50% 50 ML SYRINGE IV PRN ×3 (09:32→21:34)
[2025-06-15] MEDS ORDERED: GLUCOSE 10 TAB/TUBE PO PRN ×3 (09:32→21:34)
[2025-06-15] MEDS ORDERED: GLUCOSE 40% GEL 15 GM TUBE PO PRN ×3 (09:32→21:34)
[2025-06-15 09:49] LABS: Anion Gap 14.0 (3-11); Blood Urea Nitrogen 9.0 mg/dl (6-23); Calcium 7.3 mg/dl (8.6-10.3); Carbon Dioxide 33.0 mmol/L (21-32); Chloride 68.0 mmol/L (98-107); Creatinine Clr Calc Pharmacy 93.0 ml/min; Potassium 1.9 mmol/L (3.5-5.1); Sodium 115.0 mmol/L (136-145)
[2025-06-15] MEDS: POTASSIUM PHOSPHATE 30 MMOL in SODIUM CHLORIDE 0.9% 500 ML IV ONE (10:04)
[2025-06-15] MEDS ORDERED: LORazepam Inj 3 MG in SYRINGE 1.5 ML IV PRN (10:41)
[2025-06-15] MEDS ORDERED: LORazepam Inj 1 MG in SYRINGE 0.5 ML IV PRN (10:41)
[2025-06-15] MEDS: INFLUENZA VACC TS2025-26(6m+)/PF (IIV3) 0.5mL Syr IM ONE (10:49)
[2025-06-15] MEDS ORDERED: STAT IV/IM STA (11:00)
--- NOTE | 2025-06-15 11:07 | Nephrology Consultation ---
Date of Consultation June 15, 2025 Assessment & Plan (1) Acute hyponatremia: she had severe hyponatremia of 115. On her most recent outpatient blood work from December 2024 she did not have any electrolyte derangements in her sodium was actually 137. she has had significant nausea vomiting diarrhea and very poor oral intake for the last 6 days and could very well be true sodium deficit with hyponatremia. but it is concerning to see that sodium actually dropped after she received normal saline. she just had seizure and is getting hypertonic saline which is appropriate. we will need to check the serum BMP and magnesium every 4 hours. I will be coordinating care with primary team and ICU for further adjustment. there is significant severe critical electrolyte imbalance which makes interpretation very difficult (2) Hypokalemia: Last potassium was still 1.9. she will need a massive amount of potassium as much as 200 mEq and possibly even more. she may need a central line to expedite this. she just had seizure and she does have some altered mental status so I am not sure how much oral potassium she can take. the blood work from 10:00 a.m. is still pending and will address further. But she will need frequent labs as often as Q 4. (3) Hypomagnesemia: critically low magnesium of 0.6 and she has received IV magnesium but will need to be checked again every 4 hours (4) Hypophosphatemia: phosphorus was low and has been getting K-Phos 30 millimole but again this is to be checked at least twice daily Plan case complexity high total time spent 82 minutes discussed with ICU as well as primary team and labs reviewed and medications and treatment adjusted multiple times during the day History of Present Illness Reason for Consultation: Severe critical electrolyte issues Attending Physician: Adele Oro MD History of Present Illness 54/F with h/o type 2 diabetes, hypertension ( not on any meds though), obesity who presented to the hospital after feeling sick with nausea, vomitting and diarrhea x 1 week, vertigo symptoms worsening for last 12-24 hrs. Also had fall, jittery and shaking in the ER. She also was having difficult saying some words and finishing sentences this morning, which started around 3 am, so her /significant other named OJ brought her to the ER. Pt admits to finishing a 10 day course of Augmentin about 1 month ago for chronic sinusitis. She is using a probiotic and eating yogurt during antibiotic course. She denies having any sick contacts. Nobody else in her household is having similar symptoms. She admits to having diarrhea which is loose, watery brown 6-10 times per day for the last 6 days, denies any blood, no history of hemorrhoids or dark tarry stools. She has been nauseous and started vomiting 1 to 2 days ago, with inability to keep any medications down. She does have Zofran at home which she tried however ended up vomiting and does not think the medication absorbed. Her p.o. intake has been very poor due to this. She is not on any home medications and denied taking any Diuretics. Severe electrolyte issues found with hypokalemia 1.9, na 115 latest, Magnesium 0.6, STEPHON with Cr 1.38/BUN 13. Phosphorus 1.8 And just now had seizure. S--See HPI. 12 systems and negative otherwise Physical Exam Physical Exam: General: awake, alert, very restless and anxious, flushed face, no resp distress Head: Normocephalic, atraumatic mucous membranes dry Chest: Clear to auscultation, on room air, no added sounds Cardiac: Regular rate and rhythm, no murmur, no JVD Abdominal: Soft non tender Extremities: no edema Psych: anxious Allergies Allergy/AdvReac Type Severity Reaction Status Date / Time No Known Allergies Allergy Verified 04/12/25 10:00 Home Medications Medication Instructions Recorded Confirmed Type multivitamin 1 tab PO DAILY 06/15/25 06/15/25 History Patient History Medical History History of hematuria [facility] 2020 - pt denies at this time History of abdominal pain 02/11/25-02/14/25 - [facility] IP - pt denies any issues since Diabetes mellitus, type 2 Diet Vertigo very rare, nothing recent History of nausea and vomiting 02/11/25-02/14/25 - [facility] IP - pt denies any issues since History of diarrhea 02/11/25-02/14/25 - [facility] IP - pt denies any issues since Colitis 02/11/25-02/14/25 - [facility] IP, Patient denies at this time - reason for procedure 04/12/25 Surgical History History of surgical removal of ganglion cyst History of esophagogastroduodenoscopy (EGD) History of colonoscopy History of sinus surgery 2018 History of laparoscopic cholecystectomy History of tonsillectomy Family History Brother Ulcerative colitis Unknown Alcoholism Irritable bowel syndrome Grandmother Breast cancer maternal Denies family history of Ovarian cancer Crohn's disease Colorectal cancer Uterine cancer Social History Smoking Status: Never smoker Tobacco Type: Cigarettes Second Hand Exposure: No; Do You Dip or Chew Tobacco: No; Hx Alcohol Use: Yes Alcohol type: wine Hx Substance Use: No Preferred Language: Slovenian Communication Ability: Effective Hurricane Tracker Required: No Beliefs That Will Affect Care: None Current Living Situation: Significant Other Feels Safe at Home: Yes Assistive Devices: Glasses Results & Data Vital Signs (Past 12 Hours) Vital Signs Temp Pulse Pulse Resp BP BP Pulse Ox 06/15/25 10:17 74 06/15/25 10:00 06/15/25 09:36 36.9 C 72 18 160/82 H 95 06/15/25 08:51 77 18 94 06/15/25 08:42 79 27 H 96 06/15/25 08:30 78 22 06/15/25 08:30 154/114 H 06/15/25 08:30 154/114 H 06/15/25 08:30 154/114 H 06/15/25 08:30 154/114 H 06/15/25 08:30 154/114 H 06/15/25 08:21 77 36 H 06/15/25 08:12 80 21 06/15/25 08:11 163/84 H 06/15/25 08:11 163/84 H 06/15/25 08:11 163/84 H 06/15/25 08:11 163/84 H 06/15/25 08:11 163/84 H 06/15/25 08:09 77 19 06/15/25 08:00 80 17 97 06/15/25 07:57 95 06/15/25 07:37 162/82 H 06/15/25 07:36 77 29 H 06/15/25 07:24 79 13 06/15/25 07:12 80 14 06/15/25 07:00 78 24 11/06/25 06:51 85 26 H 06/15/25 06:42 96 H 19 06/15/25 06:30 99 H 21 06/15/25 06:12 102 H 06/15/25 05:55 36.6 C 66 20 115/52 L 97 O2 Del Method 06/15/25 10:17 06/15/25 10:00 Room Air 06/15/25 09:36 Room Air 06/15/25 08:51 06/15/25 08:42 06/15/25 08:30 06/15/25 08:30 06/15/25 08:30 06/15/25 08:30 06/15/25 08:30 06/15/25 08:30 06/15/25 08:21 06/15/25 08:12 06/15/25 08:11 06/15/25 08:11 06/15/25 08:11 06/15/25 08:11 06/15/25 08:11 06/15/25 08:09 06/15/25 08:00 06/15/25 07:57 06/15/25 07:37 06/15/25 07:36 06/15/25 07:24 06/15/25 07:12 06/15/25 07:00 06/15/25 06:51 06/15/25 06:42 06/15/25 06:30 06/15/25 06:12 06/15/25 05:55 Room Air
[2025-06-15] MEDS: SODIUM CHLORIDE 3 % 150 ML IV ONE (11:24)
[2025-06-15] MEDS: LORazepam Inj 2 MG in SYRINGE 1 ML IV PRN (11:30)
--- NOTE | 2025-06-15 12:44 | Electrocardiogram Report ---
Test Reason : Blood Pressure : */* mmHG Vent. Rate : 81 BPM Atrial Rate : 81 BPM P-R Int : 170 ms QRS Dur : 86 ms QT Int : 420 ms P-R-T Axes : 96 -15 2 degrees QTcB Int : 487 ms Sinus rhythm with frequent Premature ventricular complexes Left ventricular hypertrophy with repolarization abnormality ( R in aVL ) Abnormal ECG When compared with ECG of 11-Feb-2025 21:52, Premature ventricular complexes are now Present ST now depressed in Lateral leads T wave inversion now evident in Lateral leads Confirmed by Janes Woods ([id number]) on 06/15/2025 12:43:58 PM Referred By: REFERRED SELF Confirmed By: Janes Woods
--- NOTE | 2025-06-15 13:18 | Critical Care Consultation ---
Date of Consultation June 15, 2025 Assessment & Plan (1) Acute hyponatremia: (2) Seizure: (3) Alcohol use disorder: (4) Electrolyte disturbance: (5) Vomiting and diarrhea: (6) Diabetes mellitus, type 2: Plan Patient is a 54-year-old female with a history of diabetes, alcohol use disorder, hypertension and obesity. 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 The patient was found to have multiple electrolyte disturbances including a sodium of 119. She had a reported fall however CT imaging of the head was negative. The patient was given crystalloid volume r esuscitation with 1.5 L admitted to the medical [facility]. Later in the morning a code purple was called due to the patient having a seizure. Repeat sodium showed it had dropped to 115. The patient was transferred to the ICU. She received Ativan and was started on phenobarbital for presumed alcohol withdrawal. The patient received hypertonic saline. VBG came back showing a pH of 7.71 with a pCO2 of 29. Reason Critically Ill: Seizure Symptomatic hyponatremia Multiple electrolyte disturbances Severe metabolic alkalosis Alcohol withdrawal Hyperglycemia in setting of diabetes type 2 mild transaminitis Elevated troponin Neuro: VBG showing a pH of 7.7. Alcohol abuse disorder with possible withdrawal symptoms. Hyponatremia at 115. Patient had a seizure that was aborted with Ativan. Likely secondary to all of the above. Received hypertonic saline, repeat lab is pending. Our goal should be to raise her sodium by 4-6 points acutely and 6-8 over the next 24 hours. Started on alcohol withdrawal protocol, received phenobarbital loading dose. Has Ativan as needed. Will give thiamine now. Seizure precautions. Cardiac: Hypertensive after seizure. This has improved after phenobarbital and Ativan. Troponin was mildly elevated. CK is pending. Respiratory: Significant alkalosis appreciated on VBG. Repeat VBG after acetazolamide is ordered. GI: Vomiting and diarrhea for 1 week. Stool studies are pending. RENAL/LYTES: Multiple electrolyte derangements. All electrolytes are down, some of them are very significantly decreased including potassium and magnesium. Patient has alkalosis. I will give 500 IV of acetazolamide to help lower the pH. Our goal should be to raise her sodium by 4-6 points acutely and 6-8 over the next 24 hours. Serum osmol and urine osmol are both very low. Sodium decreased after fluid or resuscitation. Would hold any further IV fluids. We will need to aggressively replace her electrolytes. We will need to monitor her labs every 2-4 hours. Nephrology is consulted. We will need to repeat an osmol of the serum and urine later today and tomorrow morning. Orders are in. Patient received dexamethasone therefore cortisol was not ordered. Thyroid function is normal. : Urinary retention, Choe catheter placed. 2 L out immediately. Keep Choe catheter in, strict I's and O's. ENDO: Hyperglycemia, underlying diabetes mellitus type 2. Thyroid function is normal. Monitor glucose Q6. Insulin as needed. HEME: No significant leukocytosis or anemia. ID: No evidence of acute infection. Do not think antibiotics are needed at this time. Stool studies are pending. Feeding: N.p.o. except for meds for now. Fluid restriction advised. Fluids: No maintenance fluids. Analgesia: None Activity: Bedrest, sitter at bedside. Thromboprophylaxis: Heparin subcu Ulcer prophylaxis: Pantoprazole Glycemic control: Insulin subcu Bowels: Diarrhea, no bowel regimen indicated at this time. Indwelling catheters: Choe catheter, peripheral IVs. Antibiotics: None. Plan: Patient is being admitted to the ICU. Critically ill. Severe hyponatremia, severe metabolic alkalosis. Alcohol withdrawal. On alcohol withdrawal protocol. Received phenobarbital. We are aggressively replacing her electrolytes. She did receive hypertonic saline. Labs are pending now. Our goal would be to raise her sodium by 4-6 mill equivalents acutely and keep her sodium close to 120-122 for the next 24 hours. I will give acetazolamide to hopefully help lower the pH slightly. Urine is already very alkalotic however. Nephrology is consulted, appreciate assistance with case. No family was at bedside. Patient is not able to give an accurate history on her alcohol consumption recently. Will likely need central venous catheter for electrolyte replacement. I have personally spent 70 minutes of critical care time in the direct management of this patient. This is a life/limb threatening event. This includes time spent evaluating patient, direct bedside care, chart review, placing orders, interpretation of diagnostic studies, discussion with consultants, patient, and family members, as well as other required patient management xenia so. This time is exclusive of all separately billable procedures, and teaching time and separate from and in addition to any other critical care service time. History of Present Illness Reason for Consultation: Symptomatic hyponatremia, seizure Requesting Physician: Adele Oro MD Attending Physician: Adele Oro MD History of Present Illness Patient is a 54-year-old female with a history of diabetes mellitus type 2, hypertension, obesity and alcohol abuse disorder. The patient presented to the emergency department today with complaints of nausea, vomiting and diarrhea for 1 week. She also endorsed some vertigo-like symptoms that have been present for the past 24 hours. Her named RISA brought her to the ER, he says that she was having difficulty saying words and finishing sentences around 3 AM today. In the emergency department the patient was shaking and jittery. There was reports of a fall and she has a bruise on her left elbow. In the emergency department the patient was found to have severe electrolyte disturbances. Sodium was 119, potassium 1.9, chloride 68, bicarb 33, BUN 9, creatinine 0.96, glucose 298, osmolality was 253, lactic 1.8, uric acid 4.2, calcium 7.3, phosphorus 1.8, magnesium 0.6, AST 77 with ALT 37 and T. bili of 2.3. Troponin was mildly elevated. Ammonia was 50. TSH was normal. The patient received dexamethasone in the ER therefore cortisol level was not drawn. Urinalysis showed significant alkalosis with a pH of greater than 9, positive ketones, 1+ leukocyte esterase and 6-10 WBCs. Urine osmolality was also low at 411. Ethanol level was less than 10. COVID and influenza A/B and RSV were negative. The patient was admitted to the hospitalist service. She received 1.5 L fluid bolus. Electrolytes were being actively replaced. At around 11 AM today a code purple was called due to seizure activity. The patient had a witnessed generalized seizure which was aborted with 2 mg of Ativan. Repeat labs showed a sodium of 115. The patient was brought to the ICU, hypertonic saline was administered. Phenobarbital was also ordered due to concern for alcohol withdrawal and she received additional 2 mg of Ativan for severe anxiety and agitation. Allergies Allergy/AdvReac Type Severity Reaction Status Date / Time No Known Allergies Allergy Verified 04/12/25 10:00 Home Medications Medication Instructions Recorded Confirmed Type multivitamin 1 tab PO DAILY 06/15/25 06/15/25 History Patient History Medical History History of hematuria em[facility] 2020 - pt denies at this time History of abdominal pain 02/11/25-02/14/25 - [facility] IP - pt denies any issues since Diabetes mellitus, type 2 Diet Vertigo very rare, nothing recent History of nausea and vomiting 02/11/25-02/14/25 - [facility] IP - pt denies any issues since History of diarrhea 02/11/25-02/14/25 - [facility] IP - pt denies any issues since Colitis 02/11/25-02/14/25 - [facility] IP, Patient denies at this time - reason for procedure 04/12/25 Surgical History History of surgical removal of ganglion cyst History of esophagogastroduodenoscopy (EGD) History of colonoscopy History of sinus surgery 2018 History of laparoscopic cholecystectomy History of tonsillectomy Family History Brother Ulcerative colitis Unknown Alcoholism Irritable bowel syndrome Grandmother Breast cancer maternal Denies family history of Ovarian cancer Crohn's disease Colorectal cancer Uterine cancer Social History Smoking Status: Never smoker Tobacco Type: Cigarettes Second Hand Exposure: No; Do You Dip or Chew Tobacco: No; Hx Alcohol Use: Yes Alcohol type: wine Hx Substance Use: No Preferred Language: Bahraini Communication Ability: Effective Microsoft Application Developer Required: No Beliefs That Will Affect Care: None Current Living Situation: Significant Other Feels Safe at Home: Yes Assistive Devices: Glasses Review of Systems Review of Systems: Unable to be obtained due to altered mental status. Patient is not answering questions appropriately. Rambling. Physical Exam Physical Exam: Physical examination: General: Appears stated age, restless in bed, constantly picking at things and mumbling words. HEENT: Normocephalic, atraumatic. Extraocular movements intact. Sclera are nonicteric. No JVD appreciated. Skin: Warm and dry. No rashes appreciated. No jaundice appreciated. Cardiovascular: Mildly tachycardic. Hypertensive. No murmurs appreciated. No significant lower extremity edema. Lungs: Clear bilaterally, no wheezing appreciated. No crackles. Nontachypneic. On room air. Abdomen: Nondistended, nontender to palpation. No masses appreciated. Musculoskeletal: Normal muscle mass and tone. No gross joint deformity abnormalities. No effusions appreciated. Neurologic: Disoriented, mumbling speech, moving all extremities, constantly picking at things, distracted easily. Pupils are equal. Results & Data Results & Data Vital Signs (Past 12 Hours) Vital Signs Temp Pulse Pulse Resp BP BP Pulse Ox 06/15/25 11:56 81 24 165/85 H 06/15/25 10:17 74 06/15/25 10:00 06/15/25 09:36 36.9 C 72 18 160/82 H 95 06/15/25 08:51 77 18 94 06/15/25 08:42 79 27 H 96 06/15/25 08:30 78 22 06/15/25 08:30 154/114 H 06/15/25 08:30 154/114 H 06/15/25 08:30 154/114 H 06/15/25 08:30 154/114 H 06/15/25 08:30 154/114 H 06/15/25 08:21 77 36 H 06/15/25 08:12 80 21 06/15/25 08:11 163/84 H 06/15/25 08:11 163/84 H 06/15/25 08:11 163/84 H 06/15/25 08:11 163/84 H 06/15/25 08:11 163/84 H 06/15/25 08:09 77 19 06/15/25 08:00 80 17 97 06/15/25 07:57 95 06/15/25 07:37 162/82 H 06/15/25 07:36 77 29 H 06/15/25 07:24 79 13 06/15/25 07:12 80 14 06/15/25 07:00 78 24 06/15/25 06:51 85 26 H 06/15/25 06:42 96 H 19 06/15/25 06:30 99 H 21 06/15/25 06:12 102 H 06/15/25 05:55 36.6 C 66 20 115/52 L 97 O2 Del Method 06/15/25 11:56 06/15/25 10:17 06/15/25 10:00 Room Air 06/15/25 09:36 Room Air 06/15/25 08:51 06/15/25 08:42 06/15/25 08:30 06/15/25 08:30 06/15/25 08:30 06/15/25 08:30 06/15/25 08:30 06/15/25 08:30 06/15/25 08:21 06/15/25 08:12 06/15/25 08:11 06/15/25 08:11 06/15/25 08:11 06/15/25 08:11 06/15/25 08:11 06/15/25 08:09 06/15/25 08:00 06/15/25 07:57 06/15/25 07:37 06/15/25 07:36 06/15/25 07:24 06/15/25 07:12 06/15/25 07:00 06/15/25 06:51 06/15/25 06:42 06/15/25 06:30 06/15/25 06:12 06/15/25 05:55 Room Air Coding Level of Care Code 90428 CRITICAL CARE 1ST 30-74M Diagnoses Acute hyponatremia E87.1 Seizure R56.9 Alcohol use disorder F10.90 Electrolyte disturbance E87.8 Vomiting and diarrhea R11.10; R19.7 Diabetes mellitus, type 2 E11.9
[2025-06-15] MEDS: ONDANSETRON INJ 2 MG/ML 2 ML VIAL IV PRN (13:48)
[2025-06-15 13:50] LABS: Anion Gap 13.0 (3-11); Blood Urea Nitrogen 8.0 mg/dl (6-23); Calcium 7.5 mg/dl (8.6-10.3); Carbon Dioxide 32.0 mmol/L (21-32); Chloride 75.0 mmol/L (98-107); Creatinine Clr Calc Pharmacy 99.1 ml/min; Glucose 242.0 mg/dl (70-99(Fasting)); Magnesium 1.8 mg/dl (1.7-2.4); Potassium 2.3 mmol/L (3.5-5.1); Sodium 120.0 mmol/L (136-145)
[2025-06-15] MEDS: INSULIN ASPART PER UNIT CHARGE SC SCH ×2 (13:59→21:44)
[2025-06-15] MEDS: THIAMINE HCL 200 MG in SODIUM CHLORIDE 0.9% 50 ML IV STA (14:22)
[2025-06-15] MEDS: acetaZOLAMIDE 500 MG in SYRINGE 0 ML IV STA (14:22)
[2025-06-15] MEDS: PANTOprazole 40 MG/10 ML SYR IV SCH (14:22)
[2025-06-15] MEDS: HEPARIN SOD 5,000 UNIT/0.5 ML VIAL SQ SCH (14:27)
[2025-06-15 17:08] LABS: Anion Gap 11.0 (3-11); Blood Urea Nitrogen 8.0 mg/dl (6-23); Calcium 8.1 mg/dl (8.6-10.3); Carbon Dioxide 31.0 mmol/L (21-32); Chloride 83.0 mmol/L (98-107); Creatinine Clr Calc Pharmacy 93.9 ml/min; Glucose 200.0 mg/dl (70-99(Fasting)); Magnesium 2.5 mg/dl (1.7-2.4); Potassium 2.2 mmol/L (3.5-5.1); Sodium 125.0 mmol/L (136-145)
[2025-06-15 17:53] LABS: iSTAT Art Bld Gas Base Excess 1.0 mmol/L (-9-1.8); iSTAT Art Bld Gas pCO2 Correct 36 mmHg (35-46); iSTAT Art Bld Gas pH Corrected 7.451 (7.35-7.45); iSTAT Arterial Blood Gas pO2 C 73
[2025-06-15] MEDS: LACTATED RINGER'S 500 ML IV ONE (18:15)
[2025-06-15] MEDS: DICYCLOMINE HCL 10 MG CAP PO ONE (19:29)
[2025-06-15] MEDS: ALUMINUM/MAGNESIUM SUSP 30 ML UDC PO STA (19:29)
[2025-06-15] MEDS: DESMOPRESSIN ACETATE 2 MCG in SODIUM CHLORIDE 0.9% 50 ML IV STA (19:58)
[2025-06-15 20:30] LABS: Anion Gap 13.0 (3-11); Blood Urea Nitrogen 11.0 mg/dl (6-23); Calcium 8.3 mg/dl (8.6-10.3); Carbon Dioxide 27.0 mmol/L (21-32); Chloride 90.0 mmol/L (98-107); Creatinine Clr Calc Pharmacy 88.3 ml/min; Glucose 160.0 mg/dl (70-99(Fasting)); Magnesium 2.6 mg/dl (1.7-2.4); Potassium 2.3 mmol/L (3.5-5.1); Sodium 130.0 mmol/L (136-145)
[2025-06-15] MEDS: DEXTROSE 5% 500 ML IV SCH (20:58)
[2025-06-15] MEDS: POTASSIUM CHLORIDE CRTAB 20 MEQ TABCR PO SCH (21:05)
[2025-06-15] MEDS: DEXTROSE 5% 1,000 ML IV SCH (21:29)
[2025-06-15] MEDS: ACETAMINOPHEN 325 MG TAB PO PRN (23:23)
[2025-06-16 00:46] LABS: Anion Gap 11.0 (3-11); Blood Urea Nitrogen 12.0 mg/dl (6-23); Calcium 8.1 mg/dl (8.6-10.3); Carbon Dioxide 24.0 mmol/L (21-32); Chloride 90.0 mmol/L (98-107); Creatinine Clr Calc Pharmacy 91.1 ml/min; Glucose 161.0 mg/dl (70-99(Fasting)); Magnesium 2.3 mg/dl (1.7-2.4); Potassium 2.6 mmol/L (3.5-5.1); Sodium 125.0 mmol/L (136-145)
[2025-06-16 05:24] LABS: Hematocrit (blood only) 33.3 % (37.0-47.0); Hemoglobin 11.6 g/dl (12.0-16.0); Mean Corpuscular Hemoglobin 28.4 pg (25.0-34.0); Mean Corpuscular Volume 81.4 fL (80.0-100.0); Platelet Count 185 K/uL (130-400); RDW Standard Deviation 42.3 fL (36.4-46.3); Red Blood Count 4.09 M/uL (4.20-5.40); White Blood Count 15.33 K/ul (4.8-10.8)
[2025-06-16 05:46] LABS: Anion Gap 12.0 (3-11); Blood Urea Nitrogen 12.0 mg/dl (6-23); Calcium 8.0 mg/dl (8.6-10.3); Carbon Dioxide 22.0 mmol/L (21-32); Chloride 89.0 mmol/L (98-107); Creatinine Clr Calc Pharmacy 105.0 ml/min; Glucose 173.0 mg/dl (70-99(Fasting)); Potassium 2.3 mmol/L (3.5-5.1); Sodium 123.0 mmol/L (136-145)
[2025-06-16] MEDS: POTASSIUM CHLORIDE CRTAB 20 MEQ TABCR PO STA (05:58)
[2025-06-16 06:06] LABS: Magnesium 2.1 mg/dl (1.7-2.4)
[2025-06-16 07:09] LABS: Hemoglobin A1C 6.7 % (4.5-5.6)
--- NOTE | 2025-06-16 07:47 | XRay Report ---
EXAM: XR humerus LT 2V CLINICAL HISTORY: Eval for fracture in s/o fall. TECHNIQUE: X-ray images of the left humerus were obtained in anteroposterior (AP), oblique, and lateral projections. COMPARISON: No prior studies are available for comparison. FINDINGS: Bone Structure: Mild degenerative changes are noted. The bone structure is normal and aligned. There is no evidence of fracture or dislocation. The humerus is intact, without any osseous lesions or abnormalities. Joint Spaces: The shoulder and elbow joint spaces are normal. There is no evidence of joint effusion or subluxation. Soft Tissues: The soft tissues appear normal and unremarkable. No soft tissue swelling, calcifications, or foreign bodies are noted. IMPRESSION: 1. No evidence of acute fracture or dislocation. 2. Insignificant degenerative changes. Disclaimer: A subtle bone abnormality or fracture may not be readily apparent on X-rays, thus clinical correlation and further imaging, including follow-up CT, MRI, or follow-up X-rays, are advised as needed. Electronically signed by Vicente Dougherty 06-16-2025 07:47 AM
[2025-06-16] MEDS: POTASSIUM CHLORIDE / WTR 10 MEQ/100 ML PLCT IV SCH (07:49)
[2025-06-16] MEDS: FIRST - Mouthwash BLM 5 ML UDP PO SCH (07:52)
[2025-06-16 07:56] LABS: Creatine Kinase 1401 U/L (26-192); Sodium 123 mmol/L (136-145)
--- NOTE | 2025-06-16 07:56 | XRay Report ---
EXAM: XR elbow LT 2V CLINICAL HISTORY: evaluate for fracture in s/o fall TECHNIQUE: X-ray images of the left elbow were obtained in anteroposterior (AP), lateral, and oblique projections. COMPARISON: No prior studies are available for comparison. FINDINGS: Bone Structure: There is no suspicious lucency to suggest a fracture. There is no gross elevation of the anterior or posterior fat pads. The bone structure of the left elbow is normal and well aligned. No osseous lesions or abnormalities are identified. IV cannulation artifacts are seen. IMPRESSION: No suspicious lucency to suggest fracture. Disclaimer: A subtle bone abnormality or fracture may not be readily apparent on X-rays, thus clinical correlation and further imaging including follow-up CT, MRI, or follow-up X-rays are advised as needed. Electronically signed by Vicente Dougherty 06-16-2025 07:55 AM
--- NOTE | 2025-06-16 08:04 | XRay Report ---
EXAM: XR shoulder LT min 2V routine CLINICAL HISTORY: Evalute for fracture in setting of mechaincal fall TECHNIQUE: X-ray images of the left shoulder were obtained in anteroposterior (AP) internal and external rotation and Y-view projections. 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 FINDINGS: Bone Structure: Redemonstration of fractures involving the posterior aspects of the left 5th?8th ribs, showing partial healing. Currently, a few small osteophytes are seen at the glenohumeral articulation, involving the head of the humerus and representing degenerative changes. No displaced fracture is seen along the shoulder joint. The humeral head is properly positioned in the glenoid fossa. No osseous lesions or abnormalities are identified. Joint Spaces: The glenohumeral and acromioclavicular joint spaces are normal. No evidence of joint effusion or subluxation is identified. Soft Tissues: The soft tissues appear normal and unremarkable. No soft tissue swelling, calcifications, or foreign bodies are noted. Additional Findings: No signs of lytic or sclerotic lesions. IMPRESSION: Redemonstration of fractures involving the posterior aspects of the left 5th?8th ribs since the prior study of 11/23/2020. Chronic mild degenerative changes are seen at the shoulder joint. No shoulder dislocation or obvious significant glenohumeral fracture is seen. Disclaimer: A subtle bone abnormality or fracture may not be readily apparent on X-rays, thus clinical correlation and further imaging including follow-up CT, MRI, or follow-up X-rays are advised as needed. Electronically signed by Vicente Dougherty 06-16-2025 08:04 AM
[2025-06-16] MEDS: POT PHOSPHATE MONOBASIC W/ SOD TAB PO SCH (08:09)
[2025-06-16] MEDS: POTASSIUM CHLORIDE CRTAB 20 MEQ TABCR PO SCH (08:09)
[2025-06-16] MEDS: DICYCLOMINE HCL 10 MG CAP PO PRN (10:07)
--- NOTE | 2025-06-16 11:00 | Nephrology Progress Note ---
Date of Service June 16, 2025 Assessment & Plan Admission and Anticipated Discharge Date Admission Date: June 15, 2025 Subjective Assessment & Plan (1) Acute hyponatremia: she had severe hyponatremia of 115. On her most recent outpatient blood work from December 2024 she did not have any electrolyte derangements in her sodium was actually 137. she has had significant nausea vomiting diarrhea and very poor oral intake for the last 6 days and could very well be true sodium deficit with hyponatremia. but it is concerning to see that sodium actually dropped after she received normal saline. she just had seizure and is getting hypertonic saline which is appropriate. we will need to check the serum BMP and magnesium every 4 hours. Overall much better than yesterday. na now 123 and is out of critical danger level. aim to raise by about 8 per day to just above 130 tomorrow Continue NS. Check BMP q8hr (2) Hypokalemia: Last potassium was still 2.3. she will still need a massive amount of potassium as much as 200 mEq and possibly even more. Now able to eat/drink so do both iv and PO routes. kcl 40 tid+ iv kcl 40 meq + kphos Alkalosis has been corrected. (3) Hypomagnesemia: critically low magnesium of 0.6 on Adx but now normal. Need to be checked again every AM (4) Hypophosphatemia: phosphorus was low and has been getting K-Phos 30 millimole but still slightly low. Give Kphos 21 mmol S---had seizure from Low na and Severe me alkalosis. Now much better. Asking for food. S--See HPI. 12 systems and negative otherwise Physical Exam Physical Exam: General: awake, alert, very restless and anxious, flushed face, no resp distress Head: Normocephalic, atraumatic mucous membranes dry Chest: Clear to auscultation, on room air, no added sounds Cardiac: Regular rate and rhythm, no murmur, no JVD Abdominal: Soft non tender Extremities: no edema Psych: anxious Results & Data Vital Signs (Past 12 Hours) Vital Signs Temp Pulse Pulse Resp BP BP Pulse Ox 06/16/25 10:30 64 17 143/85 H 95 06/16/25 09:34 36.8 C 71 14 143/81 H 97 06/16/25 08:00 64 19 139/78 94 06/16/25 07:31 11/07/25 07:31 57 L 06/16/25 07:28 36.8 C 64 15 136/80 98 06/16/25 06:00 69 19 137/80 100 06/16/25 05:18 61 16 100 06/16/25 05:15 54 L 12 128/82 06/16/25 05:00 60 13 06/16/25 04:55 36.8 C 06/16/25 04:00 54 L 14 127/68 06/16/25 03:00 54 L 14 112/65 06/16/25 02:00 56 L 18 105/70 06/16/25 01:30 57 L 12 06/16/25 01:00 61 12 110/68 06/16/25 00:30 66 14 116/74 90 06/16/25 00:00 64 16 112/75 94 06/15/25 23:53 36.8 C 06/15/25 23:39 69 21 95 06/15/25 23:00 69 16 143/74 H 90 Pulse Ox O2 Del Method O2 Del Method 06/16/25 10:30 Room Air 06/16/25 09:34 Room Air 06/16/25 08:00 06/16/25 07:31 98 Room Air 06/16/25 07:31 06/16/25 07:28 Room Air 06/16/25 06:00 06/16/25 05:18 06/16/25 05:15 06/16/25 05:00 06/16/25 04:55 06/16/25 04:00 06/16/25 03:00 06/16/25 02:00 06/16/25 01:30 06/16/25 01:00 06/16/25 00:30 06/16/25 00:00 06/15/25 23:53 06/15/25 23:39 06/15/25 23:00
[2025-06-16] MEDS ORDERED: POTASSIUM PHOS 3 MMOL/1 ML INFUSION IV STA ×2 (11:03→21:35)
[2025-06-16] MEDS: POTASSIUM PHOSPHATE 21 MMOL in SODIUM CHLORIDE 0.9% 500 ML IV ONE (11:29)
--- NOTE | 2025-06-16 12:01 | Hospitalist Progress Note ---
Date of Service June 16, 2025 Assessment & Plan (1) Acute hyponatremia: (2) Acute dehydration: (3) Vomiting and diarrhea: (4) Hypokalemia: (5) Hypomagnesemia: (6) Weakness: (7) Hypophosphatemia: Plan Ms. Vázquez us a 54-year-old female with past med history significant for type 2 diabetes, hypertension, obesity admitted for multiple electrolyte abnormalities iso days of diarrhea.Course complicated by hyponatremia 119-->115 after fluid bolus. Patient administered multiple IV electrolyte and nephrology consulted. Patient also noted be be very alkalotic. However, at around 1045 on 06/15, patient experienced witnessed seizure and code purple called. Presented to beds joslyn, patient postictal. Seizure witnessed by nursing who notes eyes up and to left with generalized shaking. On 06/16, patient alert and oriented--able to recall events. Patient notes that she was experiencing diarrhea and to prevent dehydration she was drinking copious amounts of kang with baking soda mixed in it. This would explain the drop in sodium and the alkalosis, precipitating the seizure the day before. #Acute new-onset seizure likely iso hyponatremia, possible alcohol withdrawal unlcear of etoh history--reports of daily, vs weekly, vs socially s/p ativan 2gm IV phenobarbital load and AWSS -after patient able to communicate, discontinued phenobarb as less like etoh, more likely iso water intoxication Transfer to ICU seizure precautions s/p 3% Nacl iso seizure MRI ordered Sodium out of critical area, continue to monitor mentation #Acute hypoosmolar hyponatremia improving #anion gap, mix acidosis/alkalosis #Hypomagnesemia #Hypophosphatemia #Acute Diarrhea #possible alcohol misuse multifactorial iso reported diarrhea, question of etoh use lactatic acidosis resolved s/p IVF, low osmolar urine 411 and serum studies 253 Cortisol not obtained as given IV decadron in ED Uric acid and TSH wnl aggressive replacement of lytes Montior I/Os s/p IV NaCl 3% continuing with agressive IV and po replacement Reviewed nephrology recommendations: monitor lytes q8h, goal to raise to about 130 tomorrow #mild rhabdomyolysis likely iso seizure, improving, trend CK, cautious with fluids encourage po #Leukocytosis #Chronic anemia anticipate drop in hgb to ~11 s/p fluid administration iso hemoconcentration CTM slight WBC increase s/p decadron/seizure, no signs of infection #STEPHON resolved on arrival stephon noted, resolved on follow up BMP avoid nephrotoxic agents #Hypertension monitor s/p phenobarbital and ativan CTM, consider low dose antihypertensive #Hyperglycemia #Diabetes 6.7% -SSI #Chronically Elevated Transaminases -r/o GRAVES outpatient DVT heparin sq GI ppx PPI IV daily Admission and Anticipated Discharge Date Admission Date: June 15, 2025 Subjective more alert and communicative, states that she does not remember most of yesterday able to recall events leading up to admission---stating she was increasing her water intake notably to help keep hydrated, she even put in baking soda to help denies any nausea, vomiting, or further episodes of diarrhea Physical Exam Constitutional: WD/WN, vitals as above Respiratory: normal respiratory effort, lungs clear to auscultation Cardiovascular: RRR, no murmur, no edema Gastrointestinal (Abdomen): normal bowel sounds, soft, nontender, no hepatosplenomegaly Results & Data Results & Data Vital Signs (Past 12 Hours) Vital Signs Temp Pulse Pulse Resp BP BP Pulse Ox 06/16/25 10:30 64 17 143/85 H 95 06/16/25 09:34 36.8 C 71 14 143/81 H 97 06/16/25 08:00 64 19 139/78 94 06/16/25 07:31 06/16/25 07:31 57 L 06/16/25 07:28 36.8 C 64 15 136/80 98 06/16/25 06:00 69 19 137/80 100 06/16/25 05:18 61 16 100 06/16/25 05:15 54 L 12 128/82 06/16/25 05:00 60 13 06/16/25 04:55 36.8 C 06/16/25 04:00 54 L 14 127/68 06/16/25 03:00 54 L 14 112/65 06/16/25 02:00 56 L 18 105/70 06/16/25 01:30 57 L 12 06/16/25 01:00 61 12 110/68 06/16/25 00:30 66 14 116/74 90 06/16/25 00:00 64 16 112/75 94 06/15/25 23:53 36.8 C Pulse Ox O2 Del Method O2 Del Method 06/16/25 10:30 Room Air 06/16/25 09:34 Room Air 06/16/25 08:00 06/16/25 07:31 98 Room Air 06/16/25 07:31 06/16/25 07:28 Room Air 06/16/25 06:00 06/16/25 05:18 06/16/25 05:15 06/16/25 05:00 06/16/25 04:55 06/16/25 04:00 06/16/25 03:00 06/16/25 02:00 06/16/25 01:30 06/16/25 01:00 06/16/25 00:30 06/16/25 00:00 06/15/25 23:53 Laboratory Results Short CBC 06/16/25 Range/Units 04:52 WBC 15.33 H (4.8-10.8) K/ul Hgb 11.6 L (12.0-16.0) g/dl Hct 33.3 L (37.0-47.0) % Plt Count 185 (130-400) K/uL BMP 06/15/25 06/15/25 06/15/25 13:01 15:31 19:18 Sodium 120 L 125 L 130 L Potassium 2.3 L* D 2.2 L* 2.3 L* Chloride 75 L 83 L 90 L Carbon Dioxide 32 31 27 BUN 8 8 11 Creatinine 0.90 0.95 1.01 Glucose 242 H 200 H 160 H Calcium 7.5 L 8.1 L 8.3 L 06/15/25 06/15/25 06/16/25 22:25 23:48 02:39 Sodium 126 L 125 L 125 L Potassium 2.6 L Chloride 90 L Carbon Dioxide 24 BUN 12 Creatinine 0.98 Glucose 161 H Calcium 8.1 L 06/16/25 06/16/25 06/16/25 04:52 07:21 08:43 Sodium 123 L 123 L 123 L Potassium 2.3 L* Chloride 89 L Carbon Dioxide 22 BUN 12 Creatinine 0.85 Glucose 173 H Calcium 8.0 L Cardiac Enzymes 06/15/25 06/16/25 Range/Units 13:01 07:21 Total Creatine Kinase 2334 H 1401 H (26-192) U/L Medications Administered Home Medications Medication Instructions Recorded Confirmed Last Taken multivitamin 1 tab PO DAILY 06/15/25 06/15/25 Unknown Active Medications Generic Name Dose Route Start Last Admin Trade Name Michael PRN Reason Stop Dose Admin Acetaminophen 650 mg 06/15/25 09:32 06/16/25 06:04 Acetaminophen 325 Mg Tab PO 07/15/25 09:31 650 mg Q4H PRN Administration Moderate Pain (Scale 4, 5, 6) Dicyclomine HCl 10 mg 06/15/25 22:00 06/16/25 10:07 Dicyclomine Hcl 10 Mg Cap PO 07/15/25 21:59 10 mg Q8 PRN Administration abdominal cramps Heparin Sodium (Porcine) 5,000 units 06/15/25 14:00 06/16/25 05:50 Heparin Sod 5,000 Unit/0.5 Ml Vial SQ 07/15/25 13:59 5,000 units Q8 DENNISE Administration Lorazepam 2 mg/ Syringe 2 mls @ 2 mls/min 06/15/25 10:41 06/15/25 11:30 IV 07/15/25 10:40 2 mls/min UD PRN Administration AWSS 8,9 (Sx Triggered) Protocol Pantoprazole Sodium 40 mg in 10 mls @ 5 mls/min 06/15/25 11:45 06/16/25 07:54 Protonix IV 07/15/25 11:44 5 mls/min DAILY DENNISE Administration Potassium Phosphate 21 mmol/ 507 mls @ 112.667 mls/hr 06/16/25 11:15 06/16/25 11:29 Sodium Chloride IV 06/16/25 15:44 112.7 mls/hr ONE ONE Administration Multi-Ingredient Mouthwash/Gargle 5 ml 06/16/25 06:30 06/16/25 11:32 First - Mouthwash Blm 5 Ml Udp PO 07/16/25 06:29 5 ml Q6H DENNISE Administration Ondansetron HCl 4 mg 06/15/25 09:32 06/15/25 13:48 Ondansetron Inj 2 Mg/Ml 2 Ml Vial IV 07/15/25 09:31 4 mg Q4H PRN Administration Nausea And Vomiting Potassium Chloride 40 meq 06/16/25 09:00 06/16/25 08:09 Potassium Chloride Crtab 20 Meq Tabcr PO 07/16/25 08:59 40 meq TID DENNISE Administration
[2025-06-16] MEDS: GADOBUTROL 65ML VIAL IV ONE (13:34)
--- NOTE | 2025-06-16 13:48 | Magnetic Resonance Report ---
MRI OF THE BRAIN COMBO CLINICAL HISTORY: New onset seizure. COMPARISON STUDY: Head CT and CTA of the head June 15, 2025. TECHNIQUE: MRI of the brain was performed utilizing various T1 and T2-weighted sequences in the axial , sagittal, and coronal planes. Contrast-enhanced sequences were acquired following the administratio n of 11 cc of Gadavist. Thin cut T2 weighted imaging through the temporal lobes was performed. Thin c ut post contrast imaging was also performed. FINDINGS: Brain parenchyma: This exam is mildly compromised by motion artifact. There are no foci of restricted diffusion to suggest acute infarct. No acute intracranial hemorrhage, midline shift or mass effect i s present. There is no intracranial mass or pathologic enhancement. A few small white matter T2 hyper intense foci are present. Ventricles, sulci, and cisterns: There is no hydrocephalus. The basal cisterns are patent. There are no extra-axial collections. Pituitary and sella: Unremarkable. Intracranial vasculature: Flow-voids for the major intracranial vessels are present. Orbits: Orbital contents are unremarkable. Sinuses and mastoids: Clear. Calvarium: No calvarial lesions are identified. Several sebaceous cysts within the scalp are incident ally noted. Cervical cord: Partially visualized cervical spinal cord is normal in morphology and signal intensity . IMPRESSION: 1. No acute intracranial findings. Mild motion artifact. 2. No intracranial mass or pathologic enhancement. ACT 112: Negative or not required by law. Electronically signed by: Keith Pedraza M.D. 06/16/2025 1:47 PM
[2025-06-16] MEDS ORDERED: POTASSIUM CHLORIDE CRTAB 20 MEQ TABCR PO SCH (14:00)
[2025-06-16] MEDS: INSULIN ASPART PER UNIT CHARGE SC SCH (14:03)
--- NOTE | 2025-06-16 15:21 | Critical Care Progress Note ---
Date of Service June 16, 2025 Assessment & Plan (1) Acute hyponatremia: (2) Seizure: (3) Alcohol use disorder: (4) Electrolyte disturbance: (5) Vomiting and diarrhea: (6) Diabetes mellitus, type 2: Plan Patient is a 54-year-old female with a history of diabetes, alcohol use disorder, hypertension and obesity. 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 The patient was found to have multiple electrolyte disturbances including a sodium of 119. She had a reported fall however CT imaging of the head was negative. The patient was given crystalloid volume resuscitation with 1.5 L admitted to the medical [facility]. Later in the morning a code purple was called due to the patient having a seizure. Repeat sodium showed it had dropped to 115. The patient was transferred to the ICU. She received Ativan and was started on phenobarbital for presumed alcohol withdrawal. On further vesication the patient had a pH of 7.71, she received hypertonic saline upon arrival to the ICU. She also received acetazolamide to help lower her pH. The patient's sodium started rapidly correcting and she had very high urine output after coming to the ICU. Choe catheter was placed. The patient received DDAVP due to overcorrection of sodium. She also received 2 L of D5W. This brought her sodium back down appropriately. The patient's mentation continued to improve. She had no further seizure-like activity. When the patient was awake the following day she endorsed that she was drinking large amounts of water at home as well as drinking water with baking soda mixed into it. 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 Myself and the coding advisor explained to her that this was not a safe practice. Reason Critically Ill: Seizure secondary to hyponatremia and metabolic alkalosis Symptomatic hyponatremia secondary to polydipsia Multiple electrolyte disturbances Severe metabolic alkalosis Altered mental status, likely secondary to hyponatremia, history of alcohol use Hyperglycemia in setting of diabetes type 2 mild transaminitis Elevated troponin Neuro: Patient had 1 seizure on 06/15/2025. Likely secondary to acute drop in sodium as well as severe metabolic alkalosis. She also has a questional history of alcohol use. The patient was drinking large amounts of free water prior to coming to the hospital and also had been putting baking soda into her water. Received hypertonic saline. Also received acetazolamide. Electrolytes were aggressively replaced. Received thiamine and phenobarbital. Placed on CIWA protocol. No additional seizure activity. Mentation significantly improved today. Cardiac: Hypertensive after seizure. Normotensive today. Troponin was mildly elevated. Likely demand ischemia. Respiratory: Significant alkalosis appreciated on VBG. Received 500 IV acetazolamide. Repeat ABG is better. The patient was drinking water with baking soda and it which explains her metabolic derangement. GI: Vomiting and diarrhea for 1 week. Stool studies are pending. RENAL/LYTES: Multiple electrolyte derangements. All electrolytes are down, some of them are very significantly decreased including potassium and magnesium. Hypervolemic hyponatremia secondary to free water intake and polydipsia. Metabolic alkalosis likely secondary to drinking water with baking soda in it. Received acetazolamide. pH is much better today. Her sodium did overcorrect briefly however was brought down with DDAVP and D5W. Is correcting nicely on its own. Electrolytes are being replaced aggressively. Patient is able to take p.o. now. Having good urine output. Choe catheter is in place. Recommend 2 L fluid restriction with diet. : Had urinary retention, Choe was placed in ICU. ENDO: Hyperglycemia, underlying diabetes mellitus type 2. Thyroid function is normal. Monitor glucose Q6. Insulin as needed. HEME: No significant leukocytosis or anemia. ID: No evidence of acute infection. Do not think antibiotics are needed at this time. Stool studies are pending. Feeding: Regular diet with 2 L fluid restriction. Fluids: No maintenance fluids. Analgesia: None Activity: May ambulate. Thromboprophylaxis: Heparin subcu Ulcer prophylaxis: Pantoprazole Glycemic control: Insulin subcu Bowels: Diarrhea, no bowel regimen indicated at this time. Indwelling catheters: Choe catheter, peripheral IVs. Antibiotics: None. Plan: Patient is much improved today and can be transferred out of the ICU. Recommend monitoring sodium very closely. Our goal sodium today would be around 128 max. Monitor input, avoid excessive free water consumption. 2 L fluid restriction. Replace electrolytes aggressively. Outpatient she should avoid excessive free water consumption and should not use the baking soda and water remedy. Continue CIWA protocol. I have personally spent 45 minutes of critical care time in the direct management of this patient. This is a life/limb threatening event. This includes time spent evaluating patient, direct bedside care, chart review, placing orders, interpretation of diagnostic studies, discussion with consultants, patient, and family members, as well as other required patient management activities. This time is exclusive of all separately billable procedures, and teaching time and separate from and in addition to any other critical care service time. Admission and Anticipated Discharge Date Admission Date: June 15, 2025 Subjective Past 24-hour events: Admitted to the ICU after code purple for seizure. Patient had a seizure likely secondary to acute worsening hyponatremia as well as severe metabolic alkalosis. Received phenobarbital, Ativan. No further seizure-like activity. Hypertonic saline was administered. The patient had aggressive electrolyte replacement. She started over correcting rapidly, received DDAVP and D5W to bring sodium back to 123. Has been correcting appropriately on her own with just electrolyte replacement. Rounding: Patient endorses that she often will chug large amounts of water as she did p rior to coming to the hospital. She also adds baking soda to this when she is having an upset GI or GI symptoms. Explained to her in detail about the risk of excess free water and hyponatremia. She is much more appropriate today. Answering questions. Does not have much recollection from the last 24 hours. Intake: 5864 mL Output: 8384 mL Net: -2519 mL Mechanical ventilation: None Feeding: Regular diet, 2 L fluid restriction IV infusions: None Indwelling catheters: Choe catheter, peripheral IVs Laboratory: CBC: WBC 15.3, hemoglobin 11.6, platelets 185 Chemistry: Sodium 127, potassium 2.3, chloride 89, bicarb 22, anion gap 12, BUN 12, creatinine 0.85, glucose 173, A1c 6.7%, osmolality 259, calcium 8, phosphorus 2.2, total CK14 100, ABG: Repeat VBG shows improvement in metabolic alkalosis with a pH of 7.45 Review of Systems Review of Systems: No headache. Denies changes in vision. No nausea or vomiting. Endorses some gas symptoms. Physical Exam Physical Exam: Physical examination: General: Awake and alert, appears comfortable, resting in bed, not in distress. HEENT: Normocephalic, atraumatic. Extraocular movements intact. Sclera are nonicteric. No JVD appreciated. Skin: Warm and dry. No rashes appreciated. No jaundice appreciated. Cardiovascular: regular rate and rhythm no murmurs appreciated. No significant lower extremity edema. Lungs: Clear bilaterally, no wheezing appreciated. No crackles. Nontachypneic. On room air. Abdomen: Nondistended, nontender to palpation. No masses appreciated. Musculoskeletal: Normal muscle mass and tone. No gross joint deformity abnormalities. No effusions appreciated. Neurologic: Awake and alert today, CN II through XII grossly intact, moving oxygen with ease, nonfocal exam. Psych: Appropriate and cooperative during my exam. Results & Data Results & Data Vital Signs (Past 12 Hours) Vital Signs Temp Pulse Pulse Resp BP BP Pulse Ox 06/16/25 13:43 36.8 C 76 21 140/80 98 06/16/25 12:10 74 14 145/92 H 97 06/16/25 10:30 64 17 143/85 H 95 06/16/25 09:34 36.8 C 71 14 143/81 H 97 06/16/25 08:00 64 19 139/78 94 06/16/25 07:31 06/16/25 07:31 57 L 06/16/25 07:28 36.8 C 64 15 136/80 98 06/16/25 06:00 69 19 137/80 100 06/16/25 05:18 61 16 100 06/16/25 05:15 54 L 12 128/82 06/16/25 05:00 60 13 06/16/25 04:55 36.8 C 06/16/25 04:00 54 L 14 127/68 Pulse Ox O2 Del Method O2 Del Method 06/16/25 13:43 Room Air 06/16/25 12:10 Room Air 06/16/25 10:30 Room Air 06/16/25 09:34 Room Air 06/16/25 08:00 06/16/25 07:31 98 Room Air 06/16/25 07:31 06/16/25 07:28 Room Air 06/16/25 06:00 06/16/25 05:18 06/16/25 05:15 06/16/25 05:00 06/16/25 04:55 06/16/25 04:00 Coding Level of Care Code 34243 CRITICAL CARE 1ST 30-74M Diagnoses Acute hyponatremia E87.1 Seizure R56.9 Alcohol use disorder F10.90 Electrolyte disturbance E87.8 Vomiting and diarrhea R11.10; R19.7 Diabetes mellitus, type 2 E11.9
[2025-06-16 21:34] LABS: Anion Gap 10.0 (3-11); Blood Urea Nitrogen 18.0 mg/dl (6-23); Calcium 8.5 mg/dl (8.6-10.3); Carbon Dioxide 19.0 mmol/L (21-32); Chloride 101.0 mmol/L (98-107); Creatinine Clr Calc Pharmacy 86.6 ml/min; Glucose 141.0 mg/dl (70-99(Fasting)); Magnesium 1.9 mg/dl (1.7-2.4); Potassium 3.7 mmol/L (3.5-5.1); Sodium 130.0 mmol/L (136-145)
[2025-06-16] MEDS: POTASSIUM PHOSPHATE 24 MMOL in SODIUM CHLORIDE 0.9% 500 ML IV ONE (21:54)
[2025-06-17] MEDS ORDERED: CHLORASEPTIC (PHENOL) 1.4% SOLN 180 ML BTL MT PRN (00:49)
[2025-06-17 04:24] LABS: Hematocrit (blood only) 36.8 % (37.0-47.0); Hemoglobin 12.5 g/dl (12.0-16.0); Mean Corpuscular Hemoglobin 28.5 pg (25.0-34.0); Mean Corpuscular Volume 84.0 fL (80.0-100.0); Platelet Count 181 K/uL (130-400); RDW Standard Deviation 45.6 fL (36.4-46.3); Red Blood Count 4.38 M/uL (4.20-5.40); White Blood Count 11.93 K/ul (4.8-10.8)
[2025-06-17 04:43] LABS: Anion Gap 8.0 (3-11); Blood Urea Nitrogen 20.0 mg/dl (6-23); Calcium 8.4 mg/dl (8.6-10.3); Carbon Dioxide 20.0 mmol/L (21-32); Chloride 103.0 mmol/L (98-107); Creatinine Clr Calc Pharmacy 109.7 ml/min; Glucose 170.0 mg/dl (70-99(Fasting)); Magnesium 1.7 mg/dl (1.7-2.4); Potassium 3.8 mmol/L (3.5-5.1); Sodium 131.0 mmol/L (136-145)
[2025-06-17] MEDS: POT PHOSPHATE MONOBASIC W/ SOD TAB PO SCH (10:06)
[2025-06-17] MEDS: MULTIVITAMIN TAB PO SCH (10:11)
[2025-06-17 12:27] LABS: Anion Gap 8.0 (3-11); Blood Urea Nitrogen 18.0 mg/dl (6-23); Calcium 8.9 mg/dl (8.6-10.3); Carbon Dioxide 20.0 mmol/L (21-32); Chloride 102.0 mmol/L (98-107); Creatinine Clr Calc Pharmacy 103.9 ml/min; Glucose 150.0 mg/dl (70-99(Fasting)); Potassium 4.2 mmol/L (3.5-5.1); Sodium 130.0 mmol/L (136-145)
--- NOTE | 2025-06-17 13:18 | Hospitalist Progress Note ---
Date of Service June 17, 2025 Assessment & Plan (1) Acute hyponatremia: (2) Acute dehydration: (3) Vomiting and diarrhea: (4) Hypokalemia: (5) Hypomagnesemia: (6) Weakness: (7) Hypophosphatemia: Plan Ms. Vázquez us a 54-year-old female with past med history significant for type 2 diabetes, hypertension, obesity admitted for multiple electrolyte abnormalities iso days of diarrhea.Course complicated by hyponatremia 119-->115 after fluid bolus. Patient administered multiple IV electrolyte and nephrology consulted. Patient also noted be be very alkalotic. However, at around 1045 on 06/15, patient experienced witnessed seizure and code purple called. Presented to beds joslyn, patient postictal. Seizure witnessed by nursing who notes eyes up and to left with generalized shaking. On 06/16, patient alert and oriented--able to recall events. Patient notes that she was experiencing diarrhea and to prevent dehydration she was drinking copious amounts of kang with baking soda mixed in it. This would explain the drop in sodium and the alkalosis, precipitating the seizure the day before. 06/17, patient with increase in CK, but otherwise doing much better. Reported to patient that labs must remain stable prior to D/C #mild rhabdomyolysis likely iso seizure, improving, trend CK, cautious with fluids CK back up to 4402 will start IV LR at 250cc/hr #Acute new-onset seizure likely iso hyponatremia, possible alcohol withdrawal (less likely) unclear of etoh history--reports of daily, vs weekly, vs socially s/p ativan 2gm IV phenobarbital load and AWSS -after patient able to communicate, discontinued phenobarb as less like etoh, more likely iso water intoxication Transfer to ICU seizure precautions s/p 3% Nacl iso seizure MRI reviewed and without any acute intracranial abnormality Sodium out of critical area, continue to monitor mentation #Acute hypoosmolar hyponatremia improving #anion gap, mix acidosis/alkalosis #Hypomagnesemia #Hypophosphatemia #Acute Diarrhea #possible alcohol misuse multifactorial iso reported diarrhea, question of etoh use lactic acidosis resolved s/p IVF, low osmolar urine 411 and serum studies 253 Cortisol not obtained as given IV decadron in ED Uric acid and TSH wnl aggressive replacement of lytes Monitor I/Os s/p IV NaCl 3% continuing with aggressive IV and po replacement Sodium at goal, mag and potassium much improved, po replacement of phos #Leukocytosis #Chronic anemia anticipate drop in hgb to ~11 s/p fluid administration iso hemoconcentration CTM slight WBC increase s/p decadron/seizure, no signs of infection #STEPHON resolved on arrival stephon noted, resolved on follow up BMP avoid nephrotoxic agents #Hypertension monitor s/p phenobarbital and ativan CTM, consider low dose antihypertensive #Hyperglycemia #Diabetes 6.7% -SSI #Chronically Elevated Transaminases -r/o GRAVES outpatient DVT heparin sq GI ppx PPI IV daily Admission and Anticipated Discharge Date Admission Date: June 15, 2025 Subjective patient reports notable subjective improvement denies any headache, weakness, chest pains, or other concerns reports eagerness to return home, verbalizes understanding about limits on fluid intake Physical Exam Constitutional: WD/WN, vitals as above Respiratory: normal respiratory effort, lungs clear to auscultation Cardiovascular: RRR, no murmur, no edema Gastrointestinal (Abdomen): normal bowel sounds, soft, nontender, no hepatosplenomegaly Results & Data Results & Data Vital Signs (Past 12 Hours) Vital Signs Temp Pulse Pulse Resp BP BP Pulse Ox 06/17/25 07:34 36.7 C 65 17 146/88 H 96 06/17/25 07:24 66 06/17/25 06:00 65 12 95 06/17/25 05:00 63 11 L 96 06/17/25 04:07 133/92 06/17/25 04:06 77 13 97 06/17/25 04:00 71 22 97 06/17/25 03:00 66 13 95 06/17/25 02:00 69 22 97 O2 Del Method 06/17/25 07:34 Room Air 06/17/25 07:24 06/17/25 06:00 06/17/25 05:00 06/17/25 04:07 06/17/25 04:06 06/17/25 04:00 06/17/25 03:00 06/17/25 02:00
[2025-06-17] MEDS: LACTATED RINGER'S 1,000 ML IV SCH ×2 (13:40→21:03)
--- NOTE | 2025-06-17 13:57 | Nephrology Progress Note ---
Date of Service June 17, 2025 Assessment & Plan Admission and Anticipated Discharge Date Admission Date: June 15, 2025 Subjective Subjective Assessment & Plan (1) Acute hyponatremia: she had severe hyponatremia of 115. On her most recent outpatient blood work from December 2024 she did not have any electrolyte derangements in her sodium was actually 137. she has had significant nausea vomiting diarrhea and very poor oral intake for the last 6 days and could very well be true sodium deficit with hyponatremia. but it is concerning to see that sodium actually dropped after she received normal saline. she just had seizure and is getting hypertonic saline which is appropriate. we will need to check the serum BMP and magnesium every 4 hours. Overall much better than yesterday. na now 130 and is out of critical danger level. Continue ringer lactate Check renal panel daily in AM (2) Hypokalemia: Last potassium was normal. Will lower kcl to 40 bid Stop oral K phos--now eating normal and No diarrhea so should be normal. Check renal Panel in AM Alkalosis has been corrected. (3) Hypomagnesemia: critically low magnesium of 0.6 on Adx but now normal. Need to be checked again every AM (4) Hypophosphatemia: phosphorus still low at 1.9 Give Sodium phos 21 mmol. D/c Oral Phos S---had seizure from Low na and Severe me alkalosis. Now much better. Asking for food. S--See HPI. 12 systems and negative otherwise Physical Exam Physical Exam: General: awake, alert, very restless and anxious, flushed face, no resp distress Head: Normocephalic, atraumatic mucous membranes dry Chest: Clear to auscultation, on room air, no added sounds Cardiac: Regular rate and rhythm, no murmur, no JVD Abdominal: Soft non tender Extremities: no edema Psych: anxious Results & Data Vital Signs (Past 12 Hours) Vital Signs Temp Pulse Pulse Resp BP BP Pulse Ox 06/17/25 13:52 36.8 C 89 18 135/84 97 06/17/25 07:34 36.7 C 65 17 146/88 H 96 06/17/25 07:24 66 06/17/25 06:00 65 12 95 06/17/25 05:00 63 11 L 96 06/17/25 04:07 133/92 06/17/25 04:06 77 13 97 06/17/25 04:00 71 22 97 06/17/25 03:00 66 13 95 06/17/25 02:00 69 22 97 O2 Del Method 06/17/25 13:52 Room Air 06/17/25 07:34 Room Air 06/17/25 07:24 06/17/25 06:00 06/17/25 05:00 06/17/25 04:07 06/17/25 04:06 06/17/25 04:00 06/17/25 03:00 06/17/25 02:00
[2025-06-17] MEDS ORDERED: SODIUM PHOSPHATE 3 MMOL/1 ML INFUSION IV STA (13:58)
[2025-06-17] MEDS: SODIUM CHLORIDE 0.9% 1,000 ML IV SCH (14:50)
[2025-06-17] MEDS: SODIUM PHOSPHATE 21 MMOL in SODIUM CHLORIDE 0.9% 500 ML IV ONE (14:51)
[2025-06-17 17:21] LABS: Anion Gap 9.0 (3-11); Blood Urea Nitrogen 21.0 mg/dl (6-23); Calcium 8.8 mg/dl (8.6-10.3); Carbon Dioxide 20.0 mmol/L (21-32); Chloride 103.0 mmol/L (98-107); Creatinine Clr Calc Pharmacy 93.7 ml/min; Glucose 142.0 mg/dl (70-99(Fasting)); Potassium 4.1 mmol/L (3.5-5.1); Sodium 132.0 mmol/L (136-145)
[2025-06-17] MEDS: POTASSIUM CHLORIDE CRTAB 20 MEQ TABCR PO SCH (21:04)
[2025-06-18 03:49] LABS: Hematocrit (blood only) 33.5 % (37.0-47.0); Hemoglobin 11.2 g/dl (12.0-16.0); Mean Corpuscular Hemoglobin 28.7 pg (25.0-34.0); Mean Corpuscular Volume 85.9 fL (80.0-100.0); Platelet Count 179 K/uL (130-400); RDW Standard Deviation 48.3 fL (36.4-46.3); Red Blood Count 3.90 M/uL (4.20-5.40); White Blood Count 9.83 K/ul (4.8-10.8)
[2025-06-18 04:12] LABS: Anion Gap 5.0 (3-11); Blood Urea Nitrogen 17.0 mg/dl (6-23); Calcium 8.4 mg/dl (8.6-10.3); Carbon Dioxide 22.0 mmol/L (21-32); Chloride 106.0 mmol/L (98-107); Creatinine Clr Calc Pharmacy 139.1 ml/min; Glucose 133.0 mg/dl (70-99(Fasting)); Potassium 4.5 mmol/L (3.5-5.1); Sodium 133.0 mmol/L (136-145)
--- NOTE | 2025-06-18 07:29 | Hospitalist Progress Note ---
Date of Service June 18, 2025 Assessment & Plan (1) Acute hyponatremia: (2) Acute dehydration: (3) Vomiting and diarrhea: (4) Hypokalemia: (5) Hypomagnesemia: (6) Weakness: (7) Hypophosphatemia: Plan Ms. Vázquez us a 54-year-old female with past med history significant for type 2 diabetes, hypertension, obesity admitted for multiple electrolyte abnormalities iso days of diarrhea.Course complicated by hyponatremia 119-->115 after fluid bolus. Patient administered multiple IV electrolyte and nephrology consulted. Patient also noted be be very alkalotic. However, at around 1045 on 06/15, patient experienced witnessed seizure and code purple called. Presented to beds joslyn, patient postictal. Seizure witnessed by nursing who notes eyes up and to left with generalized shaking. On 06/16, patient alert and oriented--able to recall events. Patient notes that she was experiencing diarrhea and to prevent dehydration she was drinking copious amounts of kang with baking soda mixed in it. This would explain the drop in sodium and the alkalosis, precipitating the seizure the day before. 06/17, patient with increase in CK, but otherwise doing much better. Reported to patient that labs must remain stable prior to D/C 06/18, Noting increase in CK values up to 9548. Suspect 2/2 rapid shifts in sodium due to patient's known excessive water intake in recent months. #Severe rhabdomyolysis likely iso seizure, improving, trend CK, cautious with fluids CK rising likely 2/2 rapid fluid shifts iso severe hyponatremia Continue LR at this time Nephrology following #Acute new-onset seizure likely iso hyponatremia, possible alcohol withdrawal (less likely) unclear of etoh history--reports of daily, vs weekly, vs socially s/p ativan 2gm IV phenobarbital load and AWSS -after patient able to communicate, discontinued phenobarb as less like etoh, more likely iso water intoxication Transfer to ICU seizure precautions s/p 3% Nacl iso seizure MRI reviewed and without any acute intracranial abnormality Sodium out of critical area, continue to monitor mentation #Acute hypoosmolar hyponatremia improving #anion gap, mix acidosis/alkalosis #Hypomagnesemia #Hypophosphatemia #Acute Diarrhea #possible alcohol misuse multifactorial iso reported diarrhea, question of etoh use lactic acidosis resolved s/p IVF, low osmolar urine 411 and serum studies 253 Cortisol not obtained as given IV decadron in ED Uric acid and TSH wnl aggressive replacement of lytes Monitor I/Os s/p IV NaCl 3% continuing with aggressive IV and po replacement Sodium at goal, mag and potassium much improved, po replacement of phos #Leukocytosis #Chronic anemia anticipate drop in hgb to ~11 s/p fluid administration iso hemoconcentration CTM slight WBC increase s/p decadron/seizure, no signs of infection #STEPHON resolved on arrival stephon noted, resolved on follow up BMP avoid nephrotoxic agents #Hypertension monitor s/p phenobarbital and ativan CTM, consider low dose antihypertensive #Hyperglycemia #Diabetes 6.7% -SSI #Chronically Elevated Transaminases -r/o GRAVES outpatient DVT heparin sq GI ppx PPI IV daily Admission and Anticipated Discharge Date Admission Date: June 15, 2025 Subjective evaluated at bedside, patient reported that she felt very sore yesterday afternoon, like muscle cramps but is feeling much better Denies any chest pain, sob, or other acute symptoms at this time Physical Exam Constitutional: WD/WN, vitals as above Respiratory: normal respiratory effort, lungs clear to auscultation Cardiovascular: RRR, no murmur, no edema Gastrointestinal (Abdomen): normal bowel sounds, soft, nontender, no hepatosplenomegaly Results & Data Results & Data Vital Signs (Past 12 Hours) Vital Signs Temp Pulse Resp BP Pulse Ox O2 Del Method 06/18/25 03:43 36.7 C 65 18 155/85 H 99 Room Air 06/17/25 23:01 37.0 C 83 18 164/106 H 99 Room Air 06/17/25 20:00 36.7 C 74 18 159/83 H 99 Room Air
[2025-06-18] MEDS ORDERED: SODIUM PHOSPHATE 3 MMOL/1 ML INFUSION IV STA (07:31)
[2025-06-18] MEDS: SODIUM PHOSPHATE 30 MMOL in SODIUM CHLORIDE 0.9% 500 ML IV ONE (08:38)
[2025-06-18 08:53] LABS: Magnesium 1.4 mg/dl (1.7-2.4)
--- NOTE | 2025-06-18 12:03 | Nephrology Progress Note ---
Date of Service June 18, 2025 Assessment & Plan Admission and Anticipated Discharge Date Admission Date: June 15, 2025 Subjective Assessment & Plan (1) Acute hyponatremia: she had severe hyponatremia of 115. On her most recent outpatient blood work from December 2024 she did not have any electrolyte derangements in her sodium was actually 137. she has had significant nausea vomiting diarrhea and very poor oral intake for the last 6 days and could very well be true sodium deficit with hyponatremia. but it is concerning to see that sodium actually dropped after she received normal saline. she just had seizure and had hypertonic saline which is appropriate. FFR 2000 ml. na now 133 and is out of critical danger level. C/o bobby aches and found to have elevated CK CK kept rising so will do IVF again. Severe Electrolytes issues can cause rhabdo Check renal panel daily in AM (2) Hypokalemia: Last potassium was normal. now eating normal and No diarrhea so should be normal. Check renal Panel in AM Alkalosis has been corrected. (3) Hypomagnesemia: critically low magnesium of 0.6 on Adx then normal but low again. Give IV mag 3 gm iv. Need to be checked again every AM may need oral mag for discharge (4) Hypophosphatemia: phosphorus still low at 1.9 Written to get 30 mmol of n phos. Check Phos in AM. may need oral phos for Discharge S---had seizure from Low na and Severe met alkalosis. Now much better. Asking for food. S--See HPI. 12 systems and negative otherwise Physical Exam Physical Exam: General: awake, alert, very restless and anxious, flushed face, no resp distress Head: Normocephalic, atraumatic mucous membranes dry Chest: Clear to auscultation, on room air, no added sounds Cardiac: Regular rate and rhythm, no murmur, no JVD Abdominal: Soft non tender Extremities: no edema Psych: anxious Results & Data Vital Signs (Past 12 Hours) Vital Signs Temp Pulse Resp BP BP Pulse Ox O2 Del Method 06/18/25 08:56 36.8 C 74 18 166/96 H 98 Room Air 06/18/25 03:43 36.7 C 65 18 155/85 H 99 Room Air
[2025-06-18] MEDS: MAGNESIUM SULFATE / D5W 1 GM/100 ML BAG IV SCH (13:23)
[2025-06-18] MEDS: LACTATED RINGER'S 1,000 ML IV SCH (14:39)
[2025-06-19 06:50] LABS: Hematocrit (blood only) 33.5 % (37.0-47.0); Hemoglobin 11.4 g/dl (12.0-16.0); Mean Corpuscular Hemoglobin 29.1 pg (25.0-34.0); Mean Corpuscular Volume 85.5 fL (80.0-100.0); Platelet Count 190 K/uL (130-400); RDW Standard Deviation 47.9 fL (36.4-46.3); Red Blood Count 3.92 M/uL (4.20-5.40); White Blood Count 7.76 K/ul (4.8-10.8)
[2025-06-19 07:19] LABS: Anion Gap 7.0 (3-11); Blood Urea Nitrogen 14.0 mg/dl (6-23); Calcium 9.1 mg/dl (8.6-10.3); Carbon Dioxide 26.0 mmol/L (21-32); Chloride 103.0 mmol/L (98-107); Creatinine Clr Calc Pharmacy 124.8 ml/min; Glucose 135.0 mg/dl (70-99(Fasting)); Magnesium 1.5 mg/dl (1.7-2.4); Potassium 4.3 mmol/L (3.5-5.1); Sodium 136.0 mmol/L (136-145)
[2025-06-19] MEDS: MAGNESIUM SULFATE / D5W 1 GM/100 ML BAG IV SCH (07:46)
[2025-06-19] MEDS: MAGNESIUM CHLORIDE W/CALCIUM 64MG DELAYED REL TAB PO SCH (08:56)
--- NOTE | 2025-06-19 10:38 | Nephrology Progress Note ---
Date of Service June 19, 2025 Assessment & Plan (1) Secondary rhabdomyolysis: Plan: from severe electrolyte disorders; has mm aches; peak CK 9548; down to 6821 today >continue LR 350 mL/hr >control BP as below Care coordinated multiple times w/ Dr Oro today by phone, in person; we are in agreement (2) Electrolyte disturbance: Plan: critically low Na, K, mag, phos on presentation. p/w critical hyponatremia 115 no prior hx of this; K 1.9 on presentation and mag 0.6; did have seizures on admission; needed 3% saline. serum sodium wnl today as is K, phos; mag still mildly low at 1.5 >consider po mag at d/c (3) Hypertension: Plan: due to obligate aggressive isotonic fluids which need to continue monitor > use prn labetalol or hydralazine to manage; orders entered Admission and Anticipated Discharge Date Admission Date: June 15, 2025 Subjective pt feeling "great" >> no sob, no n/v, no confusion, no abd pain; tongue sore where she bit it w/ seizure. no edema; no new/worrisome voiding concerns. eager to learn more about hyponatremia/electrolyte disorders and to change diet to improve her condition Review of Systems 2 Review of Systems: All systems reviewed & are unremarkable except as noted in Subjective Physical Exam 2 Constitutional: well developed and well nourished Eyes: EOM intact bilaterally ENMT: Mouth: + dry oral mucous membranes Respiratory: normal respiratory effort Auscultation: + diminished lung sounds Gastrointestinal (Abdomen): Inspection/Auscultation: normal bowel sounds P ercussion/Palpation: abdomen soft; abdomen nontender Musculoskeletal: Extremities: strength 5/5 throughout Skin: no rashes, warm and dry Neurologic: canales, fluent speech, no tremor Results & Data Vital Signs (Past 12 Hours) Vital Signs Temp Pulse Pulse Pulse Resp BP BP 06/19/25 08:00 36.7 C 73 17 162/81 H 06/19/25 07:00 67 06/19/25 03:27 36.7 C 66 18 142/76 H 06/18/25 23:49 36.8 C 76 16 171/84 H Pulse Ox O2 Del Method 06/19/25 08:00 99 Room Air 06/19/25 07:00 11/10/25 03:27 98 Room Air 06/18/25 23:49 99 Room Air Laboratory Results 06/19/25 06:04 06/19/25 06:04 CK 6821 mag 1.5 phos 3.5
--- NOTE | 2025-06-19 10:52 | Hospitalist Progress Note ---
Date of Service June 19, 2025 Assessment & Plan (1) Acute hyponatremia: (2) Acute dehydration: (3) Vomiting and diarrhea: (4) Hypokalemia: (5) Hypomagnesemia: (6) Weakness: (7) Hypophosphatemia: Plan Ms. Vázquez us a 54-year-old female with past med history significant for type 2 diabetes, hypertension, obesity admitted for multiple electrolyte abnormalities iso days of diarrhea.Course complicated by hyponatremia 119-->115 after fluid bolus. Patient administered multiple IV electrolyte and nephrology consulted. Patient also noted be be very alkalotic. However, at around 1045 on 06/15, patient experienced witnessed seizure and code purple called. Presented to bed side, patient postictal. Seizure witnessed by nursing who notes eyes up and to left with generalized shaking. On 06/16, patient alert and oriented--able to recall events. Patient notes that she was experiencing diarrhea and to prevent dehydration she was drinking copious amounts of kang with baking soda mixed in it. This would explain the drop in sodium and the alkalosis, precipitating the seizure the day before. 06/17, patient with increase in CK, but otherwise doing much better. Reported to patient that labs must remain stable prior to D/C 06/18, Noting increase in CK values up to 9548. Suspect 2/2 rapid shifts in sodium due to patient's known excessive water intake in recent months. 06/19, CK levels are downtrending and patient is feeling much improved. Her levels are down to 6821, but would ideally like levels much lower of course and stable s/p discontinuation of fluids. Patient eager for discharge. Agreed to staying for IVF and trending for now. #Severe rhabdomyolysis likely iso seizure, improving, trend CK, cautious with fluids CK rising likely 2/2 rapid fluid shifts iso severe hyponatremia Continue LR at this time Nephrology following #Acute new-onset seizure *stable no further episodes likely iso hyponatremia, possible alcohol withdrawal (less likely) unclear of etoh history--reports of daily, vs weekly, vs socially s/p ativan 2gm IV phenobarbital load and AWSS -after patient able to communicate, discontinued phenobarb as less like etoh, more likely iso water intoxication Transfer to ICU seizure precautions s/p 3% Nacl iso seizure MRI reviewed and without any acute intracranial abnormality Sodium out of critical area, continue to monitor mentation #Acute hypoosmolar hyponatremia resolved #anion gap, mix acidosis/alkalosis #Hypomagnesemia #Hypophosphatemia #Acute Diarrhea #possible alcohol misuse multifactorial iso reported diarrhea, question of etoh use lactic acidosis resolved s/p IVF, low osmolar urine 411 and serum studies 253 Cortisol not obtained as given IV decadron in ED Uric acid and TSH wnl aggressive replacement of lytes Monitor I/Os s/p IV NaCl 3% continuing with aggressive IV and po replacement Sodium at goal, mag and potassium much improved, po replacement of phos Education on water intoxication #Leukocytosis #Chronic anemia anticipate drop in hgb to ~11 s/p fluid administration iso hemoconcentration CTM slight WBC increase s/p decadron/seizure, no signs of infection #STEPHON resolved on arrival stephon noted, resolved on follow up BMP avoid nephrotoxic agents #Hypertension monitor s/p phenobarbital and ativan CTM, consider low dose antihypertensive #Hyperglycemia #Diabetes 6.7% -SSI #Chronically Elevated Transaminases -r/o TOPSHAM outpatient DVT heparin sq GI ppx PPI IV daily Admission and Anticipated Discharge Date Admission Date: June 15, 2025 Subjective evaluated patient at bedside reports notable subjective improvement denies any other concerns at this time--states muscle discomfort has improved significantly disappointed to stay admitted, but verbalized understanding at this time Physical Exam Constitutional: WD/WN, vitals as above Respiratory: normal respiratory effort, lungs clear to auscultation Cardiovascular: RRR, no murmur, no edema Gastrointestinal (Abdomen): normal bowel sounds, soft, nontender, no hepatosplenomegaly Results & Data Results & Data Vital Signs (Past 12 Hours) Vital Signs Temp Pulse Pulse Pulse Resp BP BP 06/19/25 08:00 36.7 C 73 17 162/81 H 06/19/25 07:00 67 06/19/25 03:27 36.7 C 66 18 142/76 H 06/18/25 23:49 36.8 C 76 16 171/84 H Pulse Ox O2 Del Method 06/19/25 08:00 99 Room Air 06/19/25 07:00 06/19/25 03:27 98 Room Air 06/18/25 23:49 99 Room Air
[2025-06-20 05:26] LABS: Hematocrit (blood only) 35.8 % (37.0-47.0); Hemoglobin 11.7 g/dl (12.0-16.0); Mean Corpuscular Hemoglobin 27.9 pg (25.0-34.0); Mean Corpuscular Volume 85.2 fL (80.0-100.0); Platelet Count 229 K/uL (130-400); RDW Standard Deviation 49.8 fL (36.4-46.3); Red Blood Count 4.20 M/uL (4.20-5.40); White Blood Count 7.38 K/ul (4.8-10.8)
[2025-06-20 05:42] LABS: Anion Gap 7.0 (3-11); Blood Urea Nitrogen 14.0 mg/dl (6-23); Calcium 9.2 mg/dl (8.6-10.3); Carbon Dioxide 24.0 mmol/L (21-32); Chloride 105.0 mmol/L (98-107); Creatinine Clr Calc Pharmacy 143.0 ml/min; Glucose 148.0 mg/dl (70-99(Fasting)); Magnesium 1.5 mg/dl (1.7-2.4); Potassium 4.3 mmol/L (3.5-5.1); Sodium 136.0 mmol/L (136-145)
[2025-06-20] MEDS: MAGNESIUM SULFATE / D5W 1 GM/100 ML BAG IV SCH (08:05)
[2025-06-20] MEDS: MAGNESIUM CHLORIDE W/CALCIUM 64MG DELAYED REL TAB PO SCH (08:09)
--- NOTE | 2025-06-20 11:00 | Nephrology Progress Note ---
Date of Service June 20, 2025 Assessment & Plan (1) Secondary rhabdomyolysis: Plan: Improving further From severe electrolyte disorders; has mm aches; peak CK 9548; down to 3808 today >lowered LR to 200 mL/hr given uncontrolled hypertension >> run at lower rate x 4 hrs then stop IVF at 1600; d/w RN >control BP as below Care coordinated w/ Dr Oro multiple times in the day via [employer] re IVF and HTN mgt strategies, d/c dispo; we are in agreement. Also reviewed w/ pt by phone at pt request (2) Electrolyte disturbance: Plan: critically low Na, K, mag, phos on presentation. p/w critical hyponatremia 115 no prior hx of this; K 1.9 on presentation and mag 0.6; did have seizures on admission; needed 3% saline. serum sodium wnl today as are K, phos; mag still mildly low at 1.5 and getting another 4 gm today >consider po mag at d/c >at this point could do once daily labs (3) Hypertension: Plan: due to obligate aggressive isotonic fluids which need to continue although I have lowered the rate due to blood pressure elevations monitor > use prn labetalol or hydralazine to manage; has had 3 hydralazine doses as needed so far and no labetalol Admission and Anticipated Discharge Date Admission Date: June 15, 2025 Subjective feels much improved; walked 30 min (sic) w/ no issues; does endorse some light headedness w/ first standing else ok; no chest pain, focal numbness/weakness, dyspnea, edema, new/worrisome voiding issues, confusion Review of Systems 2 Review of Systems: All systems reviewed & are unremarkable except as noted in Subjective Physical Exam 2 Constitutional: well developed and well nourished Eyes: EOM intact bilaterally ENMT: Mouth: + dry oral mucous membranes Respiratory: normal respiratory effort Auscultation: + diminished lung sounds Gastrointestinal (Abdomen): Inspection/Auscultation: normal bowel sounds P ercussion/Palpation: abdomen soft; abdomen nontender Musculoskeletal: Extremities: strength 5/5 throughout Skin: no rashes, warm and dry Results & Data Vital Signs (Past 12 Hours) Vital Signs Temp Pulse Pulse Resp BP BP Pulse Ox 06/20/25 09:21 89 167/95 H 06/20/25 07:54 36.9 C 81 18 170/97 H 98 06/20/25 07:00 75 06/20/25 03:01 36.7 C 75 18 114/66 96 06/19/25 23:32 92 H 167/92 H 06/19/25 22:54 36.8 C 77 18 165/91 H 99 O2 Del Method 06/20/25 09:21 06/20/25 07:54 Room Air 06/20/25 07:00 06/20/25 03:01 Room Air 06/19/25 23:32 06/19/25 22:54 Room Air Laboratory Results 06/20/25 04:07 06/20/25 04:07 Mag 1.5 Calcium 9.2 Phosphorus 3.7 CK 3808
[2025-06-20] MEDS: LABETALOL HCL IV 5 MG/ML 20ML IV PRN (12:25)
--- NOTE | 2025-06-20 13:04 | Hospitalist Progress Note ---
Date of Service June 20, 2025 Assessment & Plan (1) Acute hyponatremia: (2) Acute dehydration: (3) Vomiting and diarrhea: (4) Hypokalemia: (5) Hypomagnesemia: (6) Weakness: (7) Hypophosphatemia: Plan Ms. Vázquez us a 54-year-old female with past med history significant for type 2 diabetes, hypertension, obesity admitted for multiple electrolyte abnormalities iso days of diarrhea.Course complicated by hyponatremia 119-->115 after fluid bolus. Patient administered multiple IV electrolyte and nephrology consulted. Patient also noted be be very alkalotic. However, at around 1045 on 06/15, patient experienced witnessed seizure and code purple called. Presented to bed side, patient postictal. Seizure witnessed by nursing who notes eyes up and to left with generalized shaking. On 06/16, patient alert and oriented--able to recall events. Patient notes that she was experiencing diarrhea and to prevent dehydration she was drinking copious amounts of kang with baking soda mixed in it. This would explain the drop in sodium and the alkalosis, precipitating the seizure the day before. 06/17, patient with increase in CK, but otherwise doing much better. Reported to patient that labs must remain stable prior to D/C 06/18, Noting increase in CK values up to 9548. Suspect 2/2 rapid shifts in sodium due to patient's known excessive water intake in recent months. 06/19, CK levels are downtrending and patient is feeling much improved. Her levels are down to 6821, but would ideally like levels much lower of course and stable s/p discontinuation of fluids. Patient eager for discharge. Agreed to staying for IVF and trending for now. 06/20, ck levels notably improved. Plan to hold IVF and assess CK in am. Possible discharge if continued decline after cessation of IVF. Started on lisinopril iso chronic hypertension even prior to IVF. Patient verbalized under standing of plan and reports if she can d/c it wouldnt be until the afternoon. #Severe rhabdomyolysis likely iso seizure, improving, trend CK, cautious with fluids CK rising likely 2/2 rapid fluid shifts iso severe hyponatremia discontinue LR at this time, CK at 3808 this am trend ck in am Nephrology following, discussed with Dr. Apodaca above plan and in agreement #Hypertension history of elevation noted, protein in urine on admission, hx DM started lisinopril 5mg prns ordered #Acute hypoosmolar hyponatremia resolved #anion gap, mix acidosis/alkalosis #Hypomagnesemia #Hypophosphatemia #Acute Diarrhea #possible alcohol misuse multifactorial iso reported diarrhea, question of etoh use lactic acidosis resolved s/p IVF, low osmolar urine 411 and serum studies 253 Cortisol not obtained as given IV decadron in ED Uric acid and TSH wnl aggressive replacement of lytes Monitor I/Os s/p IV NaCl 3% continuing with aggressive IV and po replacement Sodium at goal, mag and potassium much improved, po replacement of phos Education on water intoxication Continue slow mag BID #Acute new-onset seizure *stable no further episodes likely iso hyponatremia, possible alcohol withdrawal (less likely) unclear of etoh history--reports of daily, vs weekly, vs socially s/p ativan 2gm IV phenobarbital load and AWSS -after patient able to communicate, discontinued phenobarb as less like etoh, more likely iso water intoxication Transfer to ICU seizure precautions s/p 3% Nacl iso seizure MRI reviewed and without any acute intracranial abnormality Sodium out of critical area, continue to monitor mentation #Leukocytosis #Chronic anemia anticipate drop in hgb to ~11 s/p fluid administration iso hemoconcentration CTM slight WBC increase s/p decadron/seizure, no signs of infection #STEPHON resolved on arrival stephon noted, resolved on follow up BMP avoid nephrotoxic agents #Hyperglycemia #Diabetes 6.7% -SSI #Chronically Elevated Transaminases -r/o SERAFINA outpatient DVT heparin sq GI ppx PPI IV daily Admission and Anticipated Discharge Date Admission Date: June 15, 2025 Subjective Reports significant improvement, understands the concerns and the reason why she remained admitted for so long, verbalizes excitement for discharge possibly tomorrow afternoon denies any more muscle pains/aches, reports no sob; states she ambulated the hallways for over half an hour the day prior and is feeling about back to her baseline Physical Exam Constitutional: WD/WN, vitals as above Respiratory: normal respiratory effort, lungs clear to auscultation Cardiovascular: RRR, no murmur, no edema Gastrointestinal (Abdomen): normal bowel sounds, soft, nontender, no hepatosplenomegaly Results & Data Results & Data Vital Signs (Past 12 Hours) Vital Signs Temp Pulse Pulse Resp BP BP BP 06/20/25 12:40 86 151/86 H 06/20/25 12:25 89 182/112 H 06/20/25 12:10 36.9 C 89 18 186/93 H 182/112 H 06/20/25 09:21 89 167/95 H 06/20/25 07:54 36.9 C 81 18 170/97 H 06/20/25 07:00 75 06/20/25 03:01 36.7 C 75 18 114/66 Pulse Ox O2 Del Method 06/20/25 12:40 06/20/25 12:25 06/20/25 12:10 98 Room Air 06/20/25 09:21 06/20/25 07:54 98 Room Air 06/20/25 07:00 06/20/25 03:01 96 Room Air
[2025-06-20] MEDS: FIRST - Mouthwash BLM 5 ML UDP PO SCH (16:58)
[2025-06-20] MEDS: CALCIUM CARBONATE 500 MG CHEWABLE TAB PO PRN (22:40)
[2025-06-21 07:22] LABS: Blood Urea Nitrogen 17 mg/dl (6-23); Calcium 9.7 mg/dl (8.6-10.3); Carbon Dioxide 22 mmol/L (21-32); Chloride 104 mmol/L (98-107); Creatine Kinase 1206 U/L (26-192); Creatinine Clr Calc Pharmacy 133.1 ml/min; Glucose 160 mg/dl (70-99(Fasting))
[2025-06-21 07:27] VITALS: RESP 17; TEMP 98.6; O2SAT 96
[2025-06-21 08:59] LABS: Potassium 4.9 mmol/L (3.5-5.1); Sodium 133.0 mmol/L (136-145)
--- NOTE | 2025-06-21 09:12 | Discharge Summary ---
Discharge Summary Date of Service June 21, 2025 Principal Dx & Hospital Course #1 = Principal Diagnosis (1) Acute hyponatremia: (2) Acute dehydration: (3) Hypokalemia: (4) Hypomagnesemia: (5) Hypophosphatemia: (6) Secondary rhabdomyolysis: (7) Hypertension: (8) Viral gastroenteritis: (9) Prediabetes: Plan Patient 54-year-old female presented to the emergency room with diarrhea and vomiting for close to 1 week. In the emergency room she was found to have significant electrolyte abnormalities including severe hyponatremia. Patient was admitted to the hospital. Nephrology consultation was obtained for electrolyte abnormalities. It was learned that the patient had excessive water intake. Patient had a seizure due to her hyponatremia was transferred to the ICU. Her electrolytes stabilized and after replacement. She had no further seizures. Her nausea and vomiting and diarrhea resolved. She ruled out for C. difficile colitis. She was started on lisinopril for hypertension. She was also treated for nontraumatic rhabdomyolysis due to the rapid correction of her sodium. CPKs have steadily trended down. On the day of discharge patient is feeling well. She is tolerating a regular diet. She did bite her tongue with her seizure and eating is slow but able to manage her diet using viscous lidocaine for some symptom relief of her tongue. Blood pressure is improving. Electrolytes have improved and stabilized. She is up and ambulatory. She be discharged home and outpatient care and follow-up. Notes For Next Care Provider Continue to monitor glucose and hemoglobin A1c, may need to institute oral medication for early diabetes Continue monitor blood pressure, may need further titration of medications for blood pressure management Medication Changes From Visit Lisinopril for blood pressure control Magnesium for electrolyte replacement Orajel for her tongue sore from biting it after seizure Admission HPI Per Admitting Provider This is a 54 yo F with PMHx type 2 diabetes, hypertension, obesity who presents to the hospital after feeling sick with diarrhea x 1 week, vertigo, symptoms worsening in the past 12 hours, vomiting, had a stumbling fall, jittery and shaking in the ER. She also was having difficult saying some words and finishing sentances this morning, which started around 3 am, so her /significant other named OJ brought her to the ER. Pt admits to finishing a 10 day course of Augmentin about 1 month ago for chronic sinusitis. She is using a probiotic and eating yogurt during antibiotic course. She denies having any sick contacts. Nobody else in her household is having similar s ymptoms. She admits to having diarrhea which is loose, watery brown 4-6 times per day for the last 6 days, denies any blood, no history of hemorrhoids or dark tarry stools. She has been nauseous and started vomiting 1 to 2 days ago, with inability to keep any medications down. She does have Zofran at home which she tried however ended up vomiting and does not think the medication absorbed. Her p.o. intake has been very poor due to this. She is not on any home medications. . Dehydration found with hypokalemia 1.9, Magnesium 0.6, STEPHON with Cr 1.38/BUN 13. Na 119. Phosphorus 1.8 EKG does not show any ischemia or ST wave inversions, only PVCs. Admission Exam Per Admitting Provider See H&P Discharge Exam Constitutional: Alert HEENT: Mucous membranes moist. Ulceration right lateral tongue, healing appropriate Lungs: Clear to auscultation, decreased, no wheezes rales or rhonchi CV: S1-S2, regular Abdomen: Soft, nontender, nondistended Extremities: No significant edema Neuro: No focal deficits Psych: Cooperative, normal mood Updated Medication List Medication Instructions Recorded Confirmed Type multivitamin 1 tab PO DAILY 06/15/25 06/15/25 History benzocaine 20 %-menthol 0.1 %-zinc 1 ea mucous membrane TIDWMEAL #5.1 06/21/25 Rx chloride 0.15 % mucosal gel grams (Orajel 3X Mouth Sores) lisinopril 10 mg tablet 10 mg PO DAILY #30 tabs 06/21/25 Rx magnesium chloride 64 mg 64 mg PO BID 30 days #60 tabs 06/21/25 Rx (magnesium chloride) tablet,delayed release (Mag 64) Hospital Stay Data Consultations 06/15/25 07:40 ED Decision to Admit Stat 06/15/25 09:48 Consult Nephrology Routine 06/15/25 11:02 Consult Conservation Technician Routine Diagnostic Imagining Performed 06/15/25 06:16 CT angio head w con Stat CT angio neck with con Stat CT head/brain wo con Stat 06/16/25 12:00 MR brain wo/w con Urgent Reviewed imaging, laboratory and diagnostic studies. Pertinent findings as below. MRI of the brain showed no acute intracranial findings Multiple x-rays negative for fractures WBCs 7.3 Hemoglobin 11.7 Platelets of 229 Sodium 133 Potassium 4.9 Chloride 104 Creatinine 0.66 Calcium 9.7 CPK improved to 1206 TSH 0.59 Hemoglobin A1c 6.7% Pending Results Patient Have Any Pending Studies at Discharge: No Discharge Instructions Given to Patient (Per Discharging Provider) Continue to eat a well-balanced diet Avoid excessive water intake Your blood sugar is borderline high. Discussed with your PCP about monitoring your glucose and may need treatment for early diabetes Total Time Total Time Spent Total Time Spent (In Minutes): 32
[2025-06-21 09:20] VITALS: BP 182/112; PULSE 71
--- NOTE | 2025-06-21 10:33 | Nephrology Progress Note ---
Date of Service June 21, 2025 Assessment & Plan (1) Secondary rhabdomyolysis: Plan: Improving further From severe electrolyte disorders; has mm aches; peak CK 9548; down to 1206 today >BP as below pt d/c'd before I could review w/ hospitalist but will work w/ d/c team DX -rhabdomyolysis secondary to electrolyte disoders -critical hypomagnesemia, hyponatremia, hypokalemia on presentation -uncontrolled HTN in hospital RX -continue nsaid avoidance -lisinopril 10 mg daily -mag ox bid 64 mg OTHER MEASURES -aim for 100 gm daily protein intake -less than 2 gm daily sodium intake -no more than 3L daily fluid intake and 2.5 L is better -increase physical activity as tolerated -log BP at home > brinkg log of 12- readings to hospital d/c appt w/ me -bring home bp log to hosp d/c appt w/ me -labs on 06/23 >> bmp, mag, phos, urine osms w/ pcp appt; also same labs next week on 06/28 APPTS -hospital d/c appt w/ me in 2-3 wks in [facility] per pt request I reviewed above measures personally w/ pt; she took notes on d/c summary materials (2) Electrolyte disturbance: Plan: critically low Na, K, mag, phos on presentation. p/w critical hyponatremia 115 no prior hx of this; K 1.9 on presentation and mag 0.6; did have seizures on admission; needed 3% saline. serum sodium wnl today as are K, phos; mag still mildly low at 1.5 and getting another 4 gm today >consider po mag at d/c >at this point could do once daily labs (3) Hypertension: Plan: due in part to obligate aggressive isotonic fluids now stopped monitor > use prn labetalol or hydralazine to manage f/u and monitor as OP Admission and Anticipated Discharge Date Admission Date: June 15, 2025 Subjective seen and evaluated on rounds mid morning. feeling well; no chest pain, no mm aches, no sob, no edema; ambulating w/o issues Review of Systems 2 Review of Systems: All systems reviewed & are unremarkable except as noted in Subjective Physical Exam 2 Constitutional: well developed and well nourished Eyes: EOM intact bilaterally ENMT: Mouth: + dry oral mucous membranes Respiratory: normal respiratory effort Auscultation: + diminished lung sounds Cardiovascular: RRR, no murmur, no edema Gastrointestinal (Abdomen): Inspection/Auscultation: normal bowel sounds P ercussion/Palpation: abdomen soft; abdomen nontender Musculoskeletal: Extremities: strength 5/5 throughout Skin: no rashes, warm and dry Results & Data Vital Signs (Past 12 Hours) Vital Signs Temp Pulse Pulse Pulse Resp BP BP 06/21/25 09:19 37.0 C 77 71 17 150/80 H 182/112 H 06/21/25 07:27 37.0 C 71 17 150/80 H 06/21/25 07:00 60 06/21/25 02:48 36.9 C 77 19 144/73 H Pulse Ox O2 Del Method 06/21/25 09:19 96 06/21/25 07:27 96 Room Air 06/21/25 07:00 06/21/25 02:48 97 Room Air Laboratory Results 06/20/25 04:07 06/21/25 08:04 CKD 1206
[2025-06-21] MEDS: INFLUENZA VACC TS2025-26(6m+)/PF (IIV3) 0.5mL Syr IM ONE (11:48)
== END 2025-06-21 12:44 | disposition home or self-care (01) | DRG 683 ==
LOC: ED 05:51 → SUATTDRO 07:45 → 2S 07:45 → 1E 09:35 → 2S 06-17 06:47